=== PATIENT | male | born 1990 | race Caucasian/White ===

== ENCOUNTER 2020-04-14 13:15 | Outpatient (RCR) | payer MEDICARE, MEDICAID, SELFPAY | END 2020-05-12 14:06 | disposition home or self-care (01) | LOC: HO.WCC 13:15 | PROVIDERS: PCP Internal Medicine; Visit Provider Surgery | DX: L98.421 Non-pressure chronic ulcer of back limited to breakdown of skin (principal); F42.4 Excoriation (skin-picking) disorder; F41.1 Generalized anxiety disorder | CPT/HCPCS: 99213 ==

== ENCOUNTER 2020-04-19 03:28 | Emergency (ER) | payer MEDICARE, MEDICAID, SELFPAY ==
[2020-04-19 03:35] VITALS: BP 141/67; BP 152/55; PULSE 76; RESP 20; TEMP 37.2; O2SAT 100; O2SAT 98; BMI 23.6
[2020-04-19] MEDS: LORazepam 1 MG TABLET PO (03:59)
--- NOTE | 2020-04-19 04:15 | ED_ITS ---
HPI - Anxiety General Chief Complaint: Anxiety Stated Complaint: ANXIETY Time Seen by Provider: 04/19/20 03:43 Source: patient and EMS Mode of arrival: EMS History of Present Illness HPI narrative: [facility] been here multiple times for the same. Patient stating that he thinks something is wrong he feels ill his stomach hurts his back hurts is feeling very anxious. Sent in for evaluation. No recent fevers no chills no nausea no vomiting no diarrhea. patient also states can not stop shaking MD complaint: anxiety Severity: mild Quality: constant Related Data Allergies Allergy/AdvReac Type Severity Reaction Status Date / Time trazodone [Trazodone] Allergy Severe SWOLLEN Verified 04/19/20 03:41 TONGUE amoxicillin [Amoxicillin] Allergy Unknown UNKNOWN Verified 04/19/20 03:41 haloperidol [From HALDOL] Allergy Unknown UNKNOWN Verified 04/19/20 03:41 Amoxicillin Allergy Unknown Unknown Uncoded 04/19/20 03:41 Review of Systems Review of Systems: Constitutional : No Fever, No Chills ENT/Mouth : No Ear Pain, No Nasal Congestion, No sore throat Eyes: No Eye Pain, No Swelling, No Redness Cardiovascular : No Chest Pain, No SOB Respiratory : No Cough, No Sputum, No Dyspnea Gastrointestinal : No Nausea, No Vomiting, No Diarrhea, No Hematochezia, No Melena Genitourinary : No Dysuria, No Urinary Frequency, No Hematuria Musculoskeletal : No Myalgias Skin : No Skin Lesions, No rash Neuro : No Weakness, No Numbness, No Paresthesias, No Dizziness, No Headache Psych : positive Anxiety, negative SI HI negative depression Heme/Lymph: No Lymphadenopathy Endocrine : No Polyuria, No Polydipsia PMFSH Past Medical History Medical History (Updated 04/19/20 @ 04:28 by Benjamin Hernández DO) Anxiety Family History Family History (Updated 04/19/20 @ 04:28 by Benjamin Hernández DO) Other Family history non-contributory Social History Social History Advance Directives: No Advance Directives Information Provided: No Physical Exam Vital Signs: Vital Signs: Vital Signs Temp Pulse Resp BP Pulse Ox 04/19/20 03:35 98.9 F 76 20 141/67 H 98 Body Mass Index 23.6 vital signs reviewed Appearance: Alert. Oriented X3. No acute distress. positive for anxious Eyes: Pupils equal, round and reactive to light. ENT: Pharynx normal. Neck: Normal inspection. Neck supple. No lymph nodes noted. No crepitus CVS: Normal heart rate and rhythm. Pulses normal. Normal S1 and S2 Respiratory: No respiratory distress. Breath sounds normal. No Wheezing. No rales Abdomen: Soft and nontender. No rigidity. No distention. good BS x4 Skin: Skin warm and dry. Normal skin color. Normal skin turgor. Extremities: No lower extremity edema. Neurovascular intact to all extremities. No Lacerations. No Rash Neuro: Oriented X 3. No motor deficit. No sensory deficit. Moving all extermities. No slurred speech.
== END 2020-04-19 05:54 | disposition home or self-care (01) ==
PROVIDERS: Emergency Provider Emergency Medicine
DX: F41.9 Anxiety disorder, unspecified (principal)
CPT/HCPCS: 99283

== ENCOUNTER 2020-07-12 09:40 | Outpatient (RCR) | payer MEDICARE, MEDICAID, SELFPAY | END 2020-08-05 15:13 | disposition home or self-care (01) | LOC: HO.WCC 09:40 | PROVIDERS: Visit Provider Physician Assistant | DX: L98.499 Non-pressure chronic ulcer of skin of other sites with unspecified severity (principal); S01.302D Unspecified open wound of left ear, subsequent encounter; F41.9 Anxiety disorder, unspecified; L08.9 Local infection of the skin and subcutaneous tissue, unspecified; F17.210 Nicotine dependence, cigarettes, uncomplicated | CPT/HCPCS: 99212 ==

== ENCOUNTER 2020-08-05 11:23 | Emergency (ER) | payer MEDICARE, MEDICAID, SELFPAY ==
--- NOTE | 2020-08-05 11:29 | ED_ITS ---
HPI - Anxiety General Chief Complaint: Nausea/Vomiting/Diarrhea Stated Complaint: ANXIETY Time Seen by Provider: 08/05/20 11:29 Source: patient, EMS and old records reviewed Mode of arrival: EMS Limitations: no limitations History of Present Illness HPI narrative: 30 yo male with chronic presentation for anxiety, self induced vomiting MD complaint: anxiety Onset (ago): day(s) (today) Symptoms: sense of impending doom Severity: similar to previous episodes Quality: constant Place: home History of similar episodes: Yes Provoking factors: emotional stress Relieving factors: nothing Associated symptoms: nausea/vomiting Related Data Allergies Allergy/AdvReac Type Severity Reaction Status Date / Time trazodone [Trazodone] Allergy Severe SWOLLEN Verified 08/05/20 11:35 TONGUE amoxicillin [Amoxicillin] Allergy Unknown UNKNOWN Verified 08/05/20 11:35 haloperidol [From HALDOL] Allergy Unknown UNKNOWN Verified 08/05/20 11:35 Amoxicillin Allergy Unknown Unknown Uncoded 04/19/20 03:41 Review of Systems Review of Systems: Constitutional : No Fever, No Chills ENT/Mouth : No Ear Pain, No Nasal Congestion, No sore throat Eyes: No Eye Pain, No Swelling, No Redness Cardiovascular : No Chest Pain, No SOB Respiratory : No Cough, No Sputum, No Dyspnea Gastrointestinal : pos Nausea, pos Vomiting, No Diarrhea, No Hematochezia, No Melena Genitourinary : No Dysuria, No Urinary Frequency, No Hematuria Musculoskeletal : No Myalgias Skin : No Skin Lesions, No rash Neuro : No Weakness, No Numbness, No Paresthesias, No Dizziness, No Headache Psych : positive Anxiety, positive Depression, no SI/HI Heme/Lymph: No Lymphadenopathy Endocrine : No Polyuria, No Polydipsia All other systems reviewed and are negative [facility] Past Medical History Attestation statement: The following information was validated with the patient. Medical History Anxiety Family History Family History (Updated 04/19/20 @ 04:28 by Benjamin Hernández DO) Other Family history non-contributory Social History Social History (Updated 08/05/20 @ 12:30 by Brunilda Rogers DO) Substance Use Type: Marijuana Advance Directives: No Advance Directives Information Provided: No Physical Exam Vital Signs: Vital Signs: Last Vital Signs Temp 98.2 F 08/05/20 11:30 Pulse 91 08/05/20 11:30 Resp 20 08/05/20 11:30 BP 150/97 H 08/05/20 11:30 Pulse Ox 100 08/05/20 11:30 Body Mass Index 26.8 Appearance: Alert. Oriented X3. No acute distress. Anxious Eyes: Pupils equal, round and reactive to light. ENT: Pharynx normal. sticking his fingers down his throat Neck: Normal inspection. Neck supple. CVS: Normal heart rate and rhythm. Pulses normal. Respiratory: No respiratory distress. Breath sounds normal. Abdomen: Soft and nontender. Skin: Skin warm and dry. Normal skin color. Normal skin turgor. Extremities: No lower extremity edema. No calf ttp Neuro: Oriented X 3. No motor deficit. No sensory deficit. Course Course Course Narrative: patient eloped from the ED MDM - Anxiety MDM Narrative Medical decision making narrative: chronic presentation of anxiety and self induced vomiting - no change from baseline, will need IM ativan and reglan Discharge Plan Discharge Clinical Impression: Anxiety Patient Disposition: Elopement
[2020-08-05 11:30] VITALS: BP 150/97; PULSE 91; RESP 20; TEMP 36.8; O2SAT 100; BMI 26.8
[2020-08-05] MEDS: LORazepam 2 MG/ML VIAL IM (11:47)
[2020-08-05] MEDS: Metoclopramide HCl 10 MG/2 ML VIAL IM (11:49)
--- NOTE | 2020-08-05 11:53 | PC.NURSE ---
Patient observed sticking fingers down throat. Patient asked not to do it, patient continues to stick fingers down throat. Respirations evn and labored. Ambulated with steady gait. No apparent distress. Skin very moist, mucous membranes moist.
--- NOTE | 2020-08-05 12:06 | PC.NURSE ---
Pt continously sticking fingers down his throat- covered in own emesis. Provided with clean linen- once again advised to stop sticking fingers down throat.Pt asking for water- none given at this time r/t active vomiting.
--- NOTE | 2020-08-05 12:29 | PC.NURSE ---
Patient eloped care area. Refusing further care. Steady gait. No active vomiting provider aware.
--- NOTE | 2020-08-05 12:31 | PC.NURSE ---
Pt requesting this RN call senior living- placed call and pending transportation home. Pt remains in waiting room.
== END 2020-08-05 13:06 | disposition left against medical advice (07) ==
PROVIDERS: Emergency Provider Emergency Medicine
DX: F41.9 Anxiety disorder, unspecified (principal); F50.2 Bulimia nervosa
CPT/HCPCS: 96372; 99283; 99284; J2060; J2765

== ENCOUNTER 2020-08-05 15:37 | Emergency (ER) | payer MEDICARE, MEDICAID, SELFPAY ==
[2020-08-05 15:42] VITALS: BP 172/88; PULSE 98; RESP 22; TEMP 37.1; O2SAT 100; BMI 29.5
--- NOTE | 2020-08-05 15:50 | PC.NURSE ---
While seated in waiting room, pt is sticking fingers in mouth, eliciting gag reflex and vomiting into emesis bag.
[2020-08-05 18:33] VITALS: BP 158/86; PULSE 84; RESP 18; TEMP 37.1; O2SAT 98
--- NOTE | 2020-08-05 19:28 | ED_ITS ---
HPI - Anxiety General Chief Complaint: Anxiety Stated Complaint: anxiety Time Seen by Provider: 08/05/20 18:46 Source: patient Mode of arrival: ambulatory Limitations: no limitations History of Present Illness HPI narrative: Presents to triage with complaint of feeling anxious and nausea and vomiting was noted in triage to make himself gag by sticking his fingers in his throat and vomit this is a going on for 1 day he was here in the emergency room earlier. Upon my evaluation as patient was brought into the emergency room to his bed after being waiting room for 2 hours he now tells me that he feels better and would like to leave. He denies any medical complaints to me. MD complaint: anxiety Severity: mild Place: other ([facility]) History of similar episodes: Yes Exacerbating factors: nothing Associated symptoms: denies other symptoms Related Data Allergies Allergy/AdvReac Type Severity Reaction Status Date / Time trazodone [Trazodone] Allergy Severe SWOLLEN Verified 08/05/20 11:35 TONGUE amoxicillin [Amoxicillin] Allergy Unknown UNKNOWN Verified 08/05/20 11:35 haloperidol [From HALDOL] Allergy Unknown UNKNOWN Verified 08/05/20 11:35 Amoxicillin Allergy Unknown Unknown Uncoded 04/19/20 03:41 Review of Systems Review of Systems: Constitutional: No Weight loss, No Fever, No Chills, No Night Sweats, No Fatigue, No Malaise ENT/Mouth: No Hearing loss, No Ear Pain, No Nasal Congestion, No Sinus Pain, No Hoarseness, No sore throat, No Rhinorrhea, No Swallowing Difficulty Eyes: No Eye Pain, No Swelling, No Redness, No Foreign Body, No Discharge, No Vision Changes Cardiovascular: No Chest Pain, No SOB, No Dyspnea on Exertion, No Orthopnea, No Edema, No Palpitations Respiratory: No Cough, No Sputum, No Wheezing, No Dyspnea Gastrointestinal: No Nausea, No Vomiting, No Diarrhea, No Constipation, No abdominal Pain, No Hematochezia, No Melena Genitourinary: no irregular bleeding, No Dysuria, No Urinary Frequency, No Hematuria, No Urinary Incontinence, No Urgency, No Flank Pain, No Urinary Flow Changes, No Hesitancy Musculoskeletal: No joint pain, No Myalgias, No Joint Swelling Skin: No Skin Lesions, No rash Neuro: No Weakness, No Numbness, No Paresthesias, No Loss of Consciousness, No Dizziness, No Headache Psych: + Anxiety, No Depression, No SI/HI/AH/VH, No Social Issues Heme/Lymph: No Bruising, No Bleeding,No Lymphadenopathy Endocrine: No Polyuria, No Polydipsia, No Temperature Intolerance Yes all other systems are reviewed and are negative [facility] Past Medical History Medical History Anxiety Family History Family History (Updated 04/19/20 @ 04:28 by Benjamin Hernández DO) Other Family history non-contributory Social History Social History (Updated 08/05/20 @ 12:30 by Brunilda Rogers DO) Substance Use Type: Marijuana Advance Directives: No Advance Directives Information Provided: Yes Physical Exam Vital Signs: Vital Signs: Last Vital Signs Temp 98.7 F 08/05/20 18:33 Pulse 84 08/05/20 18:33 Resp 18 08/05/20 18:33 BP 158/86 H 08/05/20 18:33 Pulse Ox 98 08/05/20 18:33 Body Mass Index 29.5 Reviewed Const: General: cooperative and healthy appearing; No acute distress or intoxicated appearing Nutritional Appearance: average body habitus Orientation/consciousness: patient oriented x3 HENMT: Head: Yes normal to inspection Ears: hearing grossly normal bilaterally Eyes: General: appearance normal, both eyes and all related structures Visual Pillai: normal visual pillai by confrontation Neck: Neck: Yes normal visual inspection, No positive Brudzinski's sign, No positive Kernig's sign and No tender Thyroid: Thyroid normal Chest: Chest palpation & inspection: normal inspection of the chest Resp: Effort & Inspection: normal respiratory effort Auscultation: clear to auscultation bilaterally Cardio: Jugular venous distension: no JVD Rhythm: regular rhythm Heart sounds: S1 normal heart sound present and S2 normal heart sound present GI: Inspection: Yes normal to inspection Percussion: Yes normal to percussion Auscultation: normal bowel sounds : General: Yes no CVA tenderness Back/Spine/Pelvis: Back: no CVA tenderness Skin: General skin exam: no rashes or lesions noted Neuro: General: patient oriented x3 Extrem: General: Yes normal to inspection Course Course Course Narrative: Sitting up erected in bed drinking water. Reports he feels better and would like to go home. Offers no other complaints. Discharge Plan Discharge Clinical Impression: Anxiety Patient Disposition: Home, Self-Care Instructions: Anxiety (ED) Additional Instructions: Follow with primary care doctor tomorrow Return if any concerns or worsening symptoms Return to her halfway Thank you Referrals: ED Physician,Generic [Emergency Provider] - 2 days
[2020-08-05 19:44] VITALS: BP 128/72; PULSE 72; RESP 16; TEMP 36.6; O2SAT 97
== END 2020-08-05 19:54 | disposition home or self-care (01) ==
PROVIDERS: Emergency Provider Emergency Medicine
DX: F41.9 Anxiety disorder, unspecified (principal)
CPT/HCPCS: 99282; 99284

== ENCOUNTER 2020-08-16 19:38 | Emergency (ER) | payer MEDICARE, MEDICAID, SELFPAY ==
[2020-08-16 19:47] VITALS: BP 158/64; BP 160/80; PULSE 114; PULSE 99; RESP 19; TEMP 36.7; O2SAT 95; BMI 27.3
--- NOTE | 2020-08-16 19:55 | ED_ITS ---
HPI - Wound/Laceration General Chief Complaint: Medical Clearance Stated Complaint: wound check Source: patient Mode of arrival: ambulatory Limitations: no limitations History of Present Illness HPI narrative: 30-year-old male with past medical history of anxiety, chronic wound picking secondary to compulsion, and substance abuse presents from a halfway for evaluation for abnormal behavior and chronic wounds. Patient appears anxious, needs multiple redirection to answer questions on hand. He does not report any fevers, chills, chest pain or pressure, palpitations, abdominal pain, abdominal distention, nausea or vomiting. Onset (ago): year(s) Location: scalp, face, neck and genitals Patient tetanus UTD: Yes Context: other (Chronic skin picking) Treatments prior to arrival: bandage Related Data Previous Rx's Medication Instructions Recorded doxycycline monohydrate 100 mg PO BID 7 Days #14 cap 08/16/20 Allergies Allergy/AdvReac Type Severity Reaction Status Date / Time trazodone [Trazodone] Allergy Severe SWOLLEN Verified 08/16/20 19:47 TONGUE amoxicillin [Amoxicillin] Allergy Unknown UNKNOWN Verified 08/16/20 19:47 haloperidol [From HALDOL] Allergy Unknown UNKNOWN Verified 08/16/20 19:47 Amoxicillin Allergy Unknown Unknown Uncoded 08/16/20 19:47 Review of Systems Review of Systems: Constitutional: No Fever, No Chills ENT/Mouth: No Ear Pain, No Hoarseness, No sore throat Eyes: No Eye Pain, No Swelling, No Redness, No Foreign Body Cardiovascular: No Chest Pain, No SOB Respiratory: No Cough, No Dyspnea Gastrointestinal: No Nausea, No Vomiting, No Diarrhea, No abdominal Pain Genitourinary: No Dysuria, No Hematuria Musculoskeletal: No joint pain, No Myalgias, No Joint Swelling Skin: Multiple skin picking wounds to the face, scalp, neck, legs and penis. No Skin lacerations, No rash Neuro: No Weakness, No Numbness, No Paresthesias, No Loss of Consciousness, No Dizziness, No Headache Psych: No Anxiety/Panic, No Depression Heme/Lymph: no easy bruising, no Lymphadenopathy Endocrine: No Polyuria, No Polydipsia Yes all other systems are reviewed and are negative PMFSH Past Medical History Attestation statement: The following information was validated with the patient. Source: old records reviewed Medical History Anxiety Family History Family History Other Family history non-contributory Social History Social History Substance Use Type: Marijuana Advance Directives: No Advance Directives Information Provided: Yes Physical Exam Vital Signs: Vital Signs: Last Vital Signs Temp 98.1 F 08/16/20 19:47 Pulse 99 08/16/20 19:47 Resp 19 08/16/20 19:47 BP 158/64 H 08/16/20 19:47 Pulse Ox 95 08/16/20 19:47 Body Mass Index 27.3 Appearance: Alert. Oriented X3. Mild distress. Eyes: Pupils equal, round and reactive to light. ENT: Pharynx normal. Neck: Normal inspection. Neck supple. CVS: Normal heart rate and rhythm. Pulses normal. Respiratory: No respiratory distress. Breath sounds normal. Abdomen: Soft and nontender. Skin: Multiple skin wounds largest diameter is 3 cm to scalp, face, neck, legs and penis. consistent with prior history of skin picking. Skin warm and dry. Normal skin color. Normal skin turgor. Extremities: No lower extremity edema. Psych: Positive substance abuse, negative suicidal ideation, homicidal ideation, auditory visual hallucination Neuro: No motor deficit. No sensory deficit. Course Course Course Narrative: 30-year-old male presents from a halfway for evaluation for suspected substance abuse. He has been picking at his skin and has multiple wounds that are self-inflicted to his head, scalp, face, neck, extremities and penis. He has been seen by wound care for these wounds. Wounds although concerning, do not look infected, no purulent drainage, patient is afebrile. GUO is positive for opioids and cannabinoids. Patient will be discharged back to halfway facility. We will prescribe doxycycline. Discussion with halfway staff by RN for discharge instructions. MDM - Wound/Laceration Differential Diagnosis Differential diagnosis: Likely laceration, abscess, abrasion and avulsion of skin Medical Records Attestation: I reviewed the patient's medical records. Lab Data Attestation: I reviewed the patient's lab results. Labs: Lab Results 08/16/20 08/16/20 Range/Units 20:10 20:10 Urine Color YELLOW Urine Appearance CLEAR Urine pH 6.0 (5.0-8.0) Ur Specific [place] >= 1.030 H (1.005-1.025) Urine Protein NEG (NEG-TRACE) MG/DL Urine Glucose (UA) NEG (NEG) MG/DL Urine Ketones NEG (NEG) MG/DL Urine Blood NEG (NEG) Urine Nitrite NEG (NEG) Ur Leukocyte Esterase NEG (NEG) Urine Opiates Screen POSITIVE H (Not Detect) Ur Barbiturates Screen Not Detected (Not Detect) Ur Phencyclidine Scrn Not Detected (Not Detect) Ur Amphetamines Screen Not Detected (Not Detect) U Benzodiazepines Scrn Not Detected (Not Detect) Urine Cocaine Screen Not Detected (Not Detect) U Marijuana (THC) Screen POSITIVE H (Not Detect) Discharge Plan Discharge Clinical Impression: Compulsive skin picking Patient Disposition: Home, Self-Care Instructions: Acute Wounds (ED) Additional Instructions: Your evaluated for chronic wounds. Please follow-up with wound care. You may consider following up with outpatient psychiatry for medication management for compulsive behaviors. Thank you for choosing this emergency department for evaluation. Please follow-up with primary care physician as needed. Return to the emergency department for any new, concerning, or worsening symptoms. Prescriptions: New doxycycline monohydrate 100 mg capsule 100 mg PO BID 7 Days Qty: 14 RF: 0 Interventions: ED Discharge Assessment Last Done: 08/16/20 21:18 Discharge Date/Time: 08/16/20 21:42
--- NOTE | 2020-08-16 20:03 | PC.NURSE ---
PA IN ROOM FOR EVAL. AWAITING FOR FURTHER ORDERS.
--- NOTE | 2020-08-16 20:13 | PC.NURSE ---
URINE SENT TO LAB.
[2020-08-16 20:17] LABS: Glucose Urine UA NEG (NEG); Leukocyte Esterase Urine NEG (NEG); Nitrite Urine NEG (NEG); Specific Gravity - Urine >= 1.030 (1.005-1.025); Urine Blood NEG (NEG); Urine Ketones NEG (NEG); Urine Protein NEG (NEG-TRACE)
[2020-08-16 20:18] LABS: Appearance Urine CLEAR; Color Urine YELLOW
[2020-08-16 20:42] LABS: Amphetamine Screen Urine Not Detected (Not Detect); Barbiturates, Urine Not Detected (Not Detect); Benzodiazepines Screen Urine Not Detected (Not Detect); Cannabinoid Screen Urine POSITIVE (Not Detect); Cocaine Screen Urine Not Detected (Not Detect); Opiate Screen Urine POSITIVE (Not Detect); Phencyclidine Screen Urine Not Detected (Not Detect)
== END 2020-08-16 21:42 | disposition home or self-care (01) ==
PROVIDERS: Nurse Practitioner Family; Emergency Provider Internal Medicine
DX: F42.4 Excoriation (skin-picking) disorder (principal); S01.00XA Unspecified open wound of scalp, initial encounter; S01.80XA Unspecified open wound of other part of head, initial encounter; S11.90XA Unspecified open wound of unspecified part of neck, initial encounter; S81.809A Unspecified open wound, unspecified lower leg, initial encounter; S31.20XA Unspecified open wound of penis, initial encounter; X58.XXXA Exposure to other specified factors, initial encounter; F11.10 Opioid abuse, uncomplicated; F12.10 Cannabis abuse, uncomplicated; F41.9 Anxiety disorder, unspecified; Y93.89 Activity, other specified; Y92.042 Bedroom in boarding-house as the place of occurrence of the external cause; Y99.9 Unspecified external cause status
CPT/HCPCS: 80307; 81003; 99283

== ENCOUNTER 2020-08-27 08:52 | Outpatient (REF) | payer MEDICARE, MEDICAID, SELFPAY ==
--- NOTE | 2020-08-31 12:30 | MHC.AU.P13 ---
Adult Audiological Evaluation Date of Visit: 08/27/20 Webbing Inspector Used: Not Applicable Reason for Appointment: Audiologic re-evaluation to obtain new hearing aids after Kyler lost his most current hearing aids. Kyler was accompanied by his Director Of Food And Nutrition Main who reports Kyler is having difficulty consistently wearing the large power aids with conspicuous ear molds, takes them off, and then loses the aids. Previous Hearing Test Results: 12/06/2018 [facility] Progressive moderate low frequency, dropping to profound high frequency sensorineural hearing loss bilaterally. Ear History: Progressive hearing loss since cigar head pegger. Medical History: Medical History: Mental health disorder Medication List: Ambien, Ativan, Vistaril, Depakote, Zyprexa, Prozac, Psyllium, Mylanta, Omeprazole, Colace. Hearing Instrument History- Right Ear: Chuck Wagon Cook: Phonak Model: Sandra V 50-SP Serial Number: [id number] Battery Size: 13 Repair Warranty: 02/18/2022 Loss and Damage Warranty: 02/18/2022 Aid reported lost 08/27/2020 Dispensed By: [facility] Date of Fittin12/06/2018 Hearing Instrument History- Left Ear: Chuck Wagon Cook: Phonak Model: Sandra Q 50-SP Serial Number: [id number] Reported lost 08/27/2020 Battery Size: 13 Warranty: Loss and Damage Warranty: Dispensed By: [facility] Date of Fittin08/24/2017 Otoscopy: Right Ear: Partially occluding cerumen removed today prior to test Left Ear: Partially occluding cerumen removed today prior to test Tympanometry: Right Ear: Not performed at today's visit Left Ear: Not performed at today's visit Hearing Evaluation: Transducer(s) Used: Insert Earphones Method: Conventional Audiometry Stimuli Used: Pure Tones Right Ear: Description of Hearing: Moderate dropping to profound sensorineural hearing loss Left Ear: Description of Hearing: Moderate dropping to profound sensorineural hearing loss Speech Recognition Threshold (SRT): Method Used: Monitored Live Voice Stimuli Used: Spondee Words Right Ear: 70 dB HL Left Ear: 70 dB HL Word Discrimination: Method: Recorded Lists Word Lists Used: NU-6 Right Ear: 60% at 100 dB HL Left Ear: 56% at 100 dB HL Comparison: Compared to the most recent evaluation: Thresholds have decreased bilaterally. Word discrimination scores have decreased bilaterally. Interpretation of Results: Marks progressive moderate to profound bilateral sensorineural hearing loss with poor speech understanding causes significant communication difficulties. Since Kyler has such difficulty understanding speech and is not aware of environmental sounds around him, this may also increase his anxiety and mental health status. Recommendations: Audiological re-evaluation in one year. Will send a reminder card. Trial with new amplification is recommended. Medical clearance from a physician is required before fitting. Prior authorization is being sent to insurance. Hearing Aid Fitting will be scheduled when all materials arrive. Although one hearing aid is under a loss and damage warranty, a replacement for the old hearing aid lost would have to be a different model. There are barriers to using his current model with a new hearing aid model as the two devices would not work together to provide the significant benefit of binaural synchronization and noise reduction/speech enhancement features. Also, given Kyler's significant mental health disorders, he is having difficulty wearing the very large and conspicuous current hearing aids and refusing to use them which in turn makes work and social interactions nearly impossible. It is strongly recommended Kyler receive 2 new smaller hearing aids which communicate together and smaller ear molds to provide the best benefit. Kyler was shown the appropriate model and says he would consistently wear this new style of hearing aids. Diagnosis: Primary Diagnosis: H90.3 Bilateral Sensorineural Hearing Loss Services Performed: Comprehensive Audiological Evaluation (CPT 68224) Signature: Provider: Khanh Dumont, [facility]
--- NOTE | 2020-08-31 13:16 | MHC.AU.P13 ---
Hearing Aid Evaluation- Binaural Date of Visit: 08/27/20 Mail Reader Used: Not Applicable Description of Hearing: Progressive moderate dropping to profound sensorineural hearing loss bilaterally Current Hearing Instrument Information: 2019 Phonak Sandra V 50-SP and 2018 Sandra Q 50-SP hearing aids lost Additional Information: Although one hearing aid is under a loss and damage warranty, a replacement for the old hearing aid lost would have to be a different model. There are barriers to using his current model with a new hearing aid model as the two devices would not work together to provide the significant benefit of binaural synchronization and noise reduction/speech enhancement features. Also, given Kyler's significant mental health disorders, he is having difficulty wearing the very large and conspicuous current hearing aids and refusing to use them which in turn makes work and social interactions very difficult. It is strongly recommended Kyler receive 2 new smaller hearing aids which communicate together and smaller ear molds to provide the best benefit. Kyler was shown the appropriate model and says he would consistently wear this new style of hearing aids. Hearing Instrument Selection: Right Ear: Process Engineering Technician: Phonak Model: Audeo P 70-13T Battery Size: 13 Color: Sand Beige Art Handler: #2 UP Type of Mold: Phonak Clear Canal C-Shell Left Ear: Process Engineering Technician: Phonak Model: Audeo P 70-13T Battery Size: 13 Color: Sand Beige Art Handler: #2 UP Type of Mold: Phonak Clear Canal C-Shell Plan: Plan of Care for Hearing Instrument Fitting: Action Taken/Action Needed: Earmold Impressions Taken Prior authorization to be requested Medical Clearance to be requested from PCP/ENT When insurance authorizaiton is received will order aids and call to schedule Hearing Aid Fitting Diagnosis Code(s): Primary Diagnosis: H90.3 Bilateral Sensorineural Hearing Loss Services Performed: Hearing Aid Evaluation Type: HAE B: Binaural 3rd Libertarian Ear Impression (Quantity): 2 Signature: Provider: Khanh Dumont CCC-A
--- NOTE | 2020-08-31 13:20 | MHC.AU.MED ---
Medical Clearance for Hearing Instrumentation Date: 08/31/20 Patient Name: Kyler Jules Date of : 1990 Primary Care Provider: Referring Provider: Elia Argueta MD We have seen your patient on 08/31/20 and have determined that they are a candidate for amplification (See accompanying report). Specifically, they would benefit from: Hearing aid use in both ears There is a statute that addresses Medical Evaluation Requirements prior to fitting a patient with a hearing aid. According to [place] statute 265 CMR:6.03(1), (a) General. Except as provided in 265 CMR 6.03(1)(b), a wool shearing supervisor shall not sell a hearing aid unless the prospective user has presented to the wool shearing supervisor a written statement signed by a licensed physician that states that the patient's hearing loss has been medically evaluated and the patient may be considered a candidate for a hearing aid. The medical evaluation must have taken place within the preceding six months. Please note: Due to the [place] Statute referenced above, we cannot accept a signature other than that of a licensed physician. FRAME RUNNER and PA signatures cannot be accepted. I am in agreement with the above recommendation. There is no medical contraindication for hearing instrumentation. Physician Signature Date Physician Name (Printed)
== END 2020-08-27 08:53 | disposition home or self-care (01) ==
LOC: HO.SH 08:52
PROVIDERS: Visit Provider Internal Medicine
DX: Z46.1 Encounter for fitting and adjustment of hearing aid (principal); H90.3 Sensorineural hearing loss, bilateral
CPT/HCPCS: 92557; 92591; V5275

== ENCOUNTER 2020-09-01 12:45 | Emergency (ER) | payer MEDICARE, MEDICAID, SELFPAY ==
--- NOTE | ~2020-09-01 | XR_ITS ---
EXAMINATION: XR CHEST CLINICAL INFORMATION: Shortness of breath and vomiting COMPARISON: Chest radiograph 01/16/2020 TECHNIQUE: 2 views of the chest were obtained. FINDINGS: No significant abnormality is noted involving the heart, lungs, mediastinum, bony thorax or soft tissues. XR/XR chest 2V IMPRESSION: Unremarkable examination.
[2020-09-01 12:51] VITALS: BP 145/76; PULSE 83; RESP 20; TEMP 36.1; O2SAT 98; BMI 26.6
--- NOTE | 2020-09-01 17:08 | PC.NURSE ---
Patient keeps putting fingers down his throat to induce vomiting
--- NOTE | 2020-09-01 18:17 | PC.NURSE ---
pt's [facility] attendant logan vaughan ([phone]) states that pt needs a psych consult. logan vaughan states that pt is going through withdrawal and has an appt at 12 midnight for admission at [place] for detox. pt has stage 2 wounds to the neck which are due to heroin usage and picking, pt earlier c/o trouble breathing and blood in his stomach. pt earlier had some increase agitation and delusional outbursts. pt is not si/hi. mlp (rozina) aware.
--- NOTE | 2020-09-01 18:34 | ECG_ITS ---
Test Reason : VOMITING Blood Pressure : / mmHG Vent. Rate : 080 BPM Atrial Rate : 080 BPM P-R Int : 140 ms QRS Dur : 086 ms QT Int : 392 ms P-R-T Axes : 046 -26 064 degrees QTc Int : 452 ms Normal sinus rhythm Normal ECG When compared with ECG of 22-DEC-2018 13:55, T wave inversion no longer evident in Inferior leads Referred By: Juliette Hankins Electronically Signed By:CLARENCE MCKEON MD
--- NOTE | 2020-09-01 18:50 | ED.GENADULT ---
HPI - General Adult General Chief complaint: General Medical Stated complaint: DETOX Time Seen by Provider: 09/01/20 18:22 Source: patient Mode of arrival: ambulatory Limitations: no limitations History of Present Illness HPI narrative: 30-year-old male from a [place] [facility] with a past medical history of anxiety and substance abuse here with complaints of generalized abdominal discomfort described as cramping with nausea and vomiting and shortness of breath since today. Per [facility] staff the patient has a detox bed at [place] pending a crisis evaluation. He has a history of heroin use. He is unreliable historian so his last use is unknown and patient provides very limited information. Per staff he does get 20 dollars a day and he uses this money to purchase to heroin. He also uses marijuana and occasionally drinks alcohol. The patient denies SI or HI. They tell me that the patient needs a crisis consult as he is been very agitated lately and having delusions. Related Data Previous Rx's Medication Instructions Recorded doxycycline monohydrate 100 mg PO BID 7 Days #14 cap 08/16/20 ondansetron 4 mg PO Q6H PRN #10 tab 09/01/20 Allergies Allergy/AdvReac Type Severity Reaction Status Date / Time trazodone [Trazodone] Allergy Severe SWOLLEN Verified 08/16/20 19:47 TONGUE amoxicillin [Amoxicillin] Allergy Unknown UNKNOWN Verified 08/16/20 19:47 haloperidol [From HALDOL] Allergy Unknown UNKNOWN Verified 08/16/20 19:47 Amoxicillin Allergy Unknown Unknown Uncoded 08/16/20 19:47 Review of Systems Review of Systems: Yes all other systems are reviewed and are negative Constitutional: Constitutional: Reports no additional constitutional complaints, Denies body ache(s), Denies chills, Denies fever(s), Denies headache(s) and Denies weakness Eyes: Eyes: Reports no additional eye complaints and Denies change in vision ENT: Reports system reviewed and no additional complaints, except as documented, Denies dizziness, Denies headache(s), Denies nasal congestion, Denies nasal discharge and Denies neck pain Cardiovascular: Cardiovascular: Reports no additional cardiovascular complaints, Denies chest pain, Denies leg edema and Reports dyspnea Respiratory: Respiratory: Reports no additional respiratory complaints, Denies cough and Reports dyspnea Gastrointestinal: Gastrointestinal: Reports no additional gastrointestinal complaints, Denies abdominal pain, Denies diarrhea, Reports nausea and Reports vomiting Genitourinary: Genitourinary: Denies urinary incontinence Musculoskeletal: Musculoskeletal: Reports no additional musculoskeletal complaints, Denies back pain, Denies arthralgias, Denies joint swelling, Denies neck pain, Denies numbness and Denies tingling Integumentary/Breasts: Skin/Breast: Reports system reviewed and no additional complaints, except as docu and Denies rash Neurologic: Reports system reviewed and no additional complaints, except as documented, Denies Abnormal speech present, Denies dizziness, Denies headache(s), Denies numbness, Denies tingling and Denies weakness PMFSH Past Medical History Attestation statement: The following information was validated with the patient. Source: old records reviewed and nursing notes reviewed Medical History Anxiety Family History Family History Other Family history non-contributory Social History Social History Smoked in Last 30 Days: No Use of substances other than those prescribed or required for medical reasons: Yes Substance Use Type: Opiates Substance Use Frequency: Occasionally Last Used Substance: Hours (ago) Any prior treatment program specific to substance use: No Advance Directives: No Advance Directives Information Provided: Yes Physical Exam Vital Signs: Vital Signs: Last Vital Signs Temp 97 F 09/01/20 12:51 Pulse 83 09/01/20 12:51 Resp 22 H 09/01/20 20:05 BP 145/76 H 09/01/20 12:51 Pulse Ox 99 09/01/20 20:05 Body Mass Index 26.6 Const: General: cooperative, healthy appearing, comfortable and no acute distress Orientation/consciousness: patient oriented x3 Limitations: no limitations HENMT: Head: Yes normal to inspection Ears: hearing grossly normal bilaterally General nose exam: Normal external nose present Face and sinus: Yes normal facial exam Mouth: Normal oral and palatal mucosa present Throat: Yes posterior oropharynx normal Eyes: General: appearance normal, both eyes and all related structures Pupils: Equal, round and reactive pupils present Neck: Neck: Yes normal visual inspection Chest: Chest palpation & inspection: normal inspection of the chest Resp: Effort & Inspection: normal respiratory effort Auscultation: clear to auscultation bilaterally Cardio: Rate: regular rate Rhythm: regular rhythm Peripheral pulses: Peripheral pulses 2+ throughout GI: Inspection: Yes normal to inspection Palpation (GI): Soft to palpation and nontender Auscultation: normal bowel sounds Back/Spine/Pelvis: Thoracic/Lumbar Spine: thoracic and lumbar spine normal to inspection Skin: General skin exam: no rashes or lesions noted Neuro: General: patient oriented x3, no focal motor deficits and normal sensation to monofilament Cranial nerves: Yes Equal, round and reactive pupils present Cognition (Neuro): normal cognition Speech: No Abnormal speech present Gait exam (Neuro): Normal gait present Motor exam (neuro): 5/5 motor strength present throughout Extrem: General: Yes normal to inspection Psych: Other: Very anxious Appearance: disheveled Course Course Course Narrative: 30 yo male here with reports of nausea, vomiting, abdominal cramping and SOB which he tells me are withdrawal symptoms. He provides a limited history and tells me he does use heroin but is unable to tell me how much or when. He does have a detox bed at [facility] but needs a crisis evaluation prior this per the workgroup leader. Pt denies SI/HI. Very anxious, requires very frequent re-direction. Will check labs, GUO, EKG and CXR. Will give SL zofran, ativan PRN and order care team evaluation. 2100-Labs unremarkable. Our care team spoke to the [facility] staff who will take [facility] and plan for further placement in detox from there. Patient up to the bathroom where he drinks in large quantities from the sink and then forces himself to spit it up saying he is vomiting. When patient is in his room he is calm, resting with eyes closed with no vomiting or abdominal pain. Imaging unremarkable. Labs unremarkable. Will plan for discharge home. Reviewed worrisome signs/symptoms with [facility] staff. Comfortable with discharge back to them. Medical Decision Making Medical Records Medical records reviewed: Yes I reviewed the patient's medical records. Lab Data Lab results reviewed: Yes I reviewed the patient's lab results. Result diagrams: 09/01/20 19:58 09/01/20 19:58 Labs: Lab Results 09/01/20 09/01/20 09/01/20 Range/Units 19:58 19:58 19:58 WBC 9.0 (4.8-10.8) X10*3/uL RBC 4.58 L (4.60-5.80) X10*6/uL Hgb 14.4 (14.0-18.0) g/dl Hct 42.8 (42-52) % MCV 93.4 (80-98) fL MCH 31.4 (27.0-33.0) pg MCHC 33.6 (31.0-36.0) g/dl RDW 13.3 (11.0-16.0) % Plt Count 337 (160-400) X10*3/uL MPV 8.8 L (9.4-12.4) fL Immature Gran % (Auto) 0.4 (0.0-0.4) % Neut % (Auto) 86.9 H (45-73) % Lymph % (Auto) 8.5 L (20-40) % [place] % (Auto) 4.2 (2-11) % Eos % (Auto) 0.0 (0-4) % Baso % (Auto) 0.0 (0-2) % Lymph # (Auto) 0.8 L (1.2-4.9) X10*3/uL [place] # (Auto) 0.4 (0.1-1.2) X10*3/uL Eos # (Auto) 0.0 (0.0-0.4) X10*3/uL Baso # (Auto) 0.0 (0.0-0.2) X10*3/uL Abs Immat Gran (auto) 0.04 H (0.00-0.03) X10*3/uL Absolute Neuts (auto) 7.8 (2.0-8.3) X10*3/uL Absolute Nucleated RBC 0.000 (0.0-0.012) X10*3/uL Nucleated RBC % (auto) 0.0 (0.0-0.2) /100WBC Sodium 137 (135-145) mmol/L Potassium 5.1 (3.3-5.1) mmol/L Chloride 102 (96-108) mmol/L Carbon Dioxide 21 L (22-29) mmol/L Anion Gap 19 (12-20) BUN 29 H (9-16) mg/dL Creatinine 1.09 (0.5-1.4) mg/dL Estim Creat Clear Calc 93.4 Estimated GFR > 60 Random Glucose 113 (60-115) mg/dL Calcium 10.2 (8.4-10.2) mg/dL Total Bilirubin 0.6 (0.0-1.0) mg/dL Direct Bilirubin 0.3 (0.0-0.5) mg/dL AST 20 (5-37) U/L ALT 16 (0-40) U/L Alkaline Phosphatase 68 (39-117) U/L Total Protein 8.6 H (6.5-8.0) g/dL Albumin 4.9 (3.5-5.0) g/dL Urine Opiates Screen (Not Detect) Ur Barbiturates Screen (Not Detect) Ur Phencyclidine Scrn (Not Detect) Ur Amphetamines Screen (Not Detect) U Benzodiazepines Scrn (Not Detect) Urine Cocaine Screen (Not Detect) U Marijuana (THC) Screen (Not Detect) Ethyl Alcohol < 10 mg/dL 09/01/20 Range/Units 20:09 WBC (4.8-10.8) X10*3/uL RBC (4.60-5.80) X10*6/uL Hgb (14.0-18.0) g/dl Hct (42-52) % MCV (80-98) fL MCH (27.0-33.0) pg MCHC (31.0-36.0) g/dl RDW (11.0-16.0) % Plt Count (160-400) X10*3/uL MPV (9.4-12.4) fL Immature Gran % (Auto) (0.0-0.4) % Neut % (Auto) (45-73) % Lymph % (Auto) (20-40) % [place] % (Auto) (2-11) % Eos % (Auto) (0-4) % Baso % (Auto) (0-2) % Lymph # (Auto) (1.2-4.9) X10*3/uL [place] # (Auto) (0.1-1.2) X10*3/uL Eos # (Auto) (0.0-0.4) X10*3/uL Baso # (Auto) (0.0-0.2) X10*3/uL Abs Immat Gran (auto) (0.00-0.03) X10*3/uL Absolute Neuts (auto) (2.0-8.3) X10*3/uL Absolute Nucleated RBC (0.0-0.012) X10*3/uL Nucleated RBC % (auto) (0.0-0.2) /100WBC Sodium (135-145) mmol/L Potassium (3.3-5.1) mmol/L Chloride (96-108) mmol/L Carbon Dioxide (22-29) mmol/L Anion Gap (12-20) BUN (9-16) mg/dL Creatinine (0.5-1.4) mg/dL Estim Creat Clear Calc Estimated GFR Random Glucose (60-115) mg/dL Calcium (8.4-10.2) mg/dL Total Bilirubin (0.0-1.0) mg/dL Direct Bilirubin (0.0-0.5) mg/dL AST (5-37) U/L ALT (0-40) U/L Alkaline Phosphatase (39-117) U/L Total Protein (6.5-8.0) g/dL Albumin (3.5-5.0) g/dL Urine Opiates Screen Not Detected (Not Detect) Ur Barbiturates Screen Not Detected (Not Detect) Ur Phencyclidine Scrn Not Detected (Not Detect) Ur Amphetamines Screen Not Detected (Not Detect) U Benzodiazepines Scrn Not Detected (Not Detect) Urine Cocaine Screen Not Detected (Not Detect) U Marijuana (THC) Screen POSITIVE H (Not Detect) Ethyl Alcohol mg/dL Imaging Data Chest x-ray: Attestation: I personally reviewed and interpreted this imaging study as follows: Radiologist's impression: EXAMINATION: XR CHEST CLINICAL INFORMATION: Shortness of breath and vomiting COMPARISON: Chest radiograph 01/16/2020 TECHNIQUE: 2 views of the chest were obtained. FINDINGS: No significant abnormality is noted involving the heart, lungs, mediastinum, bony thorax or soft tissues. XR/XR chest 2V IMPRESSION: Unremarkable examination. ECG Data Interpretation: NSR rate 80, normal pr, normal qrs, normal qtc Artifact present with patient not being cooperative Discharge Plan Discharge Clinical Impression: Schizoaffective disorder, Withdrawal from opioids Patient Disposition: Home, Self-Care Instructions: Schizoaffective Disorder (ED), Narcotic Withdrawal (ED) Additional Instructions: Start with clear liquids then advance dist as tolerated Prescriptions: New ondansetron 4 mg tablet,disintegrating 4 mg PO Q6H PRN (Reason: nausea and vomiting) Qty: 10 RF: 0 No Action doxycycline monohydrate 100 mg capsule 100 mg PO BID 7 Days Qty: 14 RF: 0 Referrals: Physician,Unknown [Primary Care Provider] - 2 days Discharge Date/Time: 09/01/20 22:11
[2020-09-01] MEDS: LORazepam 1 MG TABLET 2 MG PO (19:44)
[2020-09-01 20:02] LABS: MANUAL DIFF FLAG NO
[2020-09-01 20:03] LABS: Hematocrit 42.8 % (42-52); Hemoglobin 14.4 g/dl (14.0-18.0); Imm Gran Abs Auto 0.04 X10*3/uL (0.00-0.03); Imm Gran Pct Auto 0.4 % (0.0-0.4); Lymphocytes Absolute Auto 0.8 X10*3/uL (1.2-4.9); Lymphocytes Percent Auto 8.5 % (20-40); Mean Corpuscular HGB Conc 33.6 g/dl (31.0-36.0); Mean Corpuscular Hemoglobin 31.4 pg (27.0-33.0); Mean Corpuscular Volume 93.4 fL (80-98); Mean Platelet Volume 8.8 fL (9.4-12.4); Monocytes Absolute Auto 0.4 X10*3/uL (0.1-1.2); Monocytes Percent Auto 4.2 % (2-11); Neutrophils Absolute Auto 7.8 X10*3/uL (2.0-8.3); Neutrophils Percent Auto 86.9 % (45-73); Platelet Count 337 X10*3/uL (160-400); Red Blood Count 4.58 X10*6/uL (4.60-5.80); Red Cell Distribution Width 13.3 % (11.0-16.0)
[2020-09-01 20:05] VITALS: RESP 22; O2SAT 99
[2020-09-01 20:37] LABS: Ethanol < 10 mg/dL
[2020-09-01 20:40] LABS: Alanine Aminotransferase 16 U/L (0-40); Albumin Level 4.9 g/dL (3.5-5.0); Alkaline Phosphatase 68 U/L (39-117); Anion Gap 19 (12-20); Aspartate Amino Transferase 20 U/L (5-37); Bilirubin Direct 0.3 mg/dL (0.0-0.5); Bilirubin Total 0.6 mg/dL (0.0-1.0); Blood Urea Nitrogen 29 mg/dL (9-16); Calcium 10.2 mg/dL (8.4-10.2); Carbon Dioxide 21 mmol/L (22-29); Chloride 102 mmol/L (96-108); Creatinine Clr Calc Pharmacy 93.4; Estimated Glomerular Filt Rate > 60; Glucose Random 113 mg/dL (60-115); Potassium 5.1 mmol/L (3.3-5.1); Sodium 137 mmol/L (135-145); Total Protein 8.6 g/dL (6.5-8.0)
--- NOTE | 2020-09-01 21:00 | MHC.CARE ---
CARE Team speaks with individual small group instructor, Main, who indicates that pt is in withdrawal from heroin and outpatient providers are planning on referring him to a detox facility. CARE Team meets with pt, who appears anxious and ruminates on physical complaints, and has difficulty engaging with home health care social worker. In speaking with Main and ED staff who know pt well, pt appears to be functioning at baseline psychiatrically. He has a reported hx of schizophrenia and depression. Pt does not meet criteria for sect 12 at this time, as increased distress is likely attributed to withdrawal from heroin. CARE Team coordinates with Main from [facility] for discharge plan. CARE Team recommends to Main that after medical clearance, pt be discharged to the [facility] with plan for N crisis assessment in the community with likely referral to detox as [facility] is recommending. CARE Team voices concerns about if the milieu at a detox facility will be appropriate for pt given baseline functioning. Pt reportedly needs a great deal of redirection. Plan is discussed with ARMANDO Clements and DAVID Blount.
[2020-09-01 21:10] LABS: Amphetamine Screen Urine Not Detected (Not Detect); Barbiturates, Urine Not Detected (Not Detect); Benzodiazepines Screen Urine Not Detected (Not Detect); Cannabinoid Screen Urine POSITIVE (Not Detect); Cocaine Screen Urine Not Detected (Not Detect); Opiate Screen Urine Not Detected (Not Detect); Phencyclidine Screen Urine Not Detected (Not Detect)
== END 2020-09-01 22:11 | disposition home or self-care (01) ==
PROVIDERS: Nurse Practitioner Family; Emergency Provider Emergency Medicine
DX: F11.13 Opioid abuse with withdrawal (principal); F25.9 Schizoaffective disorder, unspecified; F22 Delusional disorders; R06.02 Shortness of breath; R11.2 Nausea with vomiting, unspecified; F41.9 Anxiety disorder, unspecified; F12.90 Cannabis use, unspecified, uncomplicated; Z79.899 Other long term (current) drug therapy
CPT/HCPCS: 36415; 71046; 80048; 80076; 80307; 80320; 85025; 93005; 99283; 99284

== ENCOUNTER 2020-09-04 15:47 | Emergency (ER) | payer MEDICARE, MEDICAID, SELFPAY ==
[2020-09-04 16:04] VITALS: BP 154/81; PULSE 77; RESP 18; TEMP 36.8; O2SAT 100; BMI 23.6
--- NOTE | 2020-09-04 16:10 | ED_ITS ---
HPI - Psych General Chief Complaint: Psychiatric Symptoms Stated Complaint: crisis Time Seen by Provider: 09/04/20 16:02 Source: patient and EMS Mode of arrival: EMS Limitations: no limitations History of Present Illness HPI Narrative: Patient comes to emergency room by EMS from a [facility]. Patient has been voicing suicidal ideation was thoughts, hearing voices. EMS reports that the [facility] staff is concerned that the patient has increased depression. Patient states that he is not suicidal stating that he would never hurt himself, but he is on a ?destructive path?. Patient states that he hears voices telling him to hurt himself. Patient is not homicidal. Patient denies any medical concerns. MD complaint: feels depressed Related Data Home Medications Medication Instructions Recorded Confirmed divalproex [Depakote ER] 2 tab PO BID 09/04/20 09/04/20 docusate sodium 1 cap PO BID 09/04/20 09/04/20 fluoxetine 1 mg PO DAILY 09/04/20 09/04/20 mupirocin TOPICAL 09/04/20 zolpidem 1 tab PO BEDTIME PRN 09/04/20 09/04/20 Previous Rx's Medication Instructions Recorded doxycycline monohydrate 100 mg PO BID 7 Days #14 cap 08/16/20 ondansetron 4 mg PO Q6H PRN #10 tab 09/01/20 Allergies Allergy/AdvReac Type Severity Reaction Status Date / Time trazodone [Trazodone] Allergy Severe SWOLLEN Verified 09/04/20 16:01 TONGUE amoxicillin [Amoxicillin] Allergy Unknown UNKNOWN Verified 09/04/20 16:01 haloperidol [From HALDOL] Allergy Unknown UNKNOWN Verified 09/04/20 16:01 Amoxicillin Allergy Unknown Unknown Uncoded 08/16/20 19:47 Review of Systems Review of Systems: Constitutional : No Weight loss, No Fever, No Chills, No Night Sweats, No Fatigue, No Malaise ENT/Mouth : No Hearing loss, No Ear Pain, No Nasal Congestion, No Sinus Pain, No Hoarseness, No sore throat, No Rhinorrhea, No Swallowing Difficulty Eyes: No Eye Pain, No Swelling, No Redness, No Foreign Body, No Discharge, No Vision Changes Cardiovascular : No Chest Pain, No SOB, No Dyspnea on Exertion, No Orthopnea, No Edema, No Palpitations Respiratory : No Cough, No Sputum, No Wheezing, No Smoke Exposure, No Dyspnea Gastrointestinal : No Nausea, No Vomiting, No Diarrhea, No Constipation, No abdominal Pain, No Hematochezia, No Melena Genitourinary : no irregular bleeding, No Dysuria, No Urinary Frequency, No Hematuria, No Urinary Incontinence, No Urgency, No Flank Pain, No Urinary Flow Changes, No Hesitancy Musculoskeletal : No joint pain, No Myalgias, No Joint Swelling Skin : Complaining of multiple skin scabs and his face and neck Neuro : No Weakness, No Numbness, No Paresthesias, No Loss of Consciousness, No Dizziness, No Headache Psych : Mild anxiety, worsening depression, auditory hallucinations Heme/Lymph: No Bruising, No Bleeding,No Lymphadenopathy Endocrine : No Polyuria, No Polydipsia, No Temperature Intolerance PMFSH Past Medical History Medical History Anxiety Schizoaffective disorder Substance abuse Family History Family History Other Family history non-contributory Social History Social History Smoked in Last 30 Days: No Use of substances other than those prescribed or required for medical reasons: No Substance Use Type: Opiates Advance Directives: No Advance Directives Information Provided: Yes Physical Exam Vital Signs: Vital Signs: Last Vital Signs Temp 97.4 F 09/04/20 18:00 Pulse 86 09/04/20 18:15 Resp 16 09/04/20 18:00 BP 148/81 H 09/04/20 18:00 Pulse Ox 99 09/04/20 18:00 Body Mass Index 23.6 Appearance: Alert. Oriented X3. No acute distress. Eyes: Pupils equal, round and reactive to light. ENT: Pharynx normal. Hard of hearing Neck: Normal inspection. Neck supple. No lymph nodes noted. No crepitus CVS: Normal heart rate and rhythm. Pulses normal. Normal S1 and S2 Respiratory: No respiratory distress. Breath sounds normal. No Wheezing. No rales Abdomen: Soft and nontender. No rigidity. No distention. good BS x4 Skin: Skin warm and dry. Patient has multiple scabs in the forehead, behind his right ear and on the neck, patient constantly picking and scratching these areas Extremities: No lower extremity edema. No lower extremity edema. No Lacerati ons. No Rash Neuro: Oriented X 3. No motor deficit. No sensory deficit. Moving all extermities. No slurred speech. Psych: Patient calm, cooperative, seems anxious, picking on his scabs in his neck Course Course Course Narrative: Patient was seen by [facility]. At this time, patient is feeling better, denying suicidal ideation. [facility] staff talked to the [facility], patient has been compliant with his medication. Seems that his symptoms are related to marijuana use. I spoke with patient again, he is not suicidal or homicidal. Patient agrees with plan to be sent home to the [facility] - Psych Lab Data Labs: Lab Results 09/04/20 09/04/20 Range/Units 16:38 16:38 Urine Color YELLOW Urine Appearance CLEAR Urine pH 7.5 (5.0-8.0) Ur Specific Orient 1.015 (1.005-1.025) Urine Protein NEG (NEG-TRACE) MG/DL Urine Glucose (UA) NEG (NEG) MG/DL Urine Ketones 5 (NEG) MG/DL Urine Blood NEG (NEG) Urine Nitrite NEG (NEG) Ur Leukocyte Esterase NEG (NEG) Urine Opiates Screen Not Detected (Not Detect) Ur Barbiturates Screen Not Detected (Not Detect) Ur Phencyclidine Scrn Not Detected (Not Detect) Ur Amphetamines Screen Not Detected (Not Detect) U Benzodiazepines Scrn Not Detected (Not Detect) Urine Cocaine Screen Not Detected (Not Detect) U Marijuana (THC) Screen POSITIVE H (Not Detect) Discharge Plan Discharge Clinical Impression: Marijuana abuse Depression Qualifiers: Depression Type: other depression Qualified Code(s): F32.89 - Other specified depressive episodes Patient Disposition: Home, Self-Care Instructions: Depression (ED) Additional Instructions: Please follow-up with your primary care physician tomorrow. If you have any worsening or new symptoms, please return to the emergency room or call 911 Prescriptions: No Action doxycycline monohydrate 100 mg capsule 100 mg PO BID 7 Days Qty: 14 RF: 0 ondansetron 4 mg tablet,disintegrating 4 mg PO Q6H PRN (Reason: nausea and vomiting) Qty: 10 RF: 0 divalproex [Depakote ER] 500 mg tablet extended release 24 hr 2 tab PO BID RF: 0 docusate sodium 100 mg capsule 1 cap PO BID RF: 0 mupirocin 2 % ointment topical RF: 0 zolpidem 5 mg tablet 1 tab PO BEDTIME PRN (Reason: Sleep) RF: 0 fluoxetine 20 mg capsule 1 mg PO DAILY RF: 0
[2020-09-04 16:47] LABS: Glucose Urine UA NEG (NEG); Leukocyte Esterase Urine NEG (NEG); Nitrite Urine NEG (NEG); PH 7.5 (5.0-8.0); Specific Gravity - Urine 1.015 (1.005-1.025); Urine Blood NEG (NEG); Urine Ketones 5 MG/DL (NEG); Urine Protein NEG (NEG-TRACE)
--- NOTE | 2020-09-04 16:51 | PC.NURSE ---
arun called to confirm that fax was recieved. this rn spoke with Theresa. Crisis eval expected whenever next clinician is available. no ETA.
[2020-09-04 16:52] LABS: Appearance Urine CLEAR; Color Urine YELLOW
[2020-09-04 17:08] LABS: Amphetamine Screen Urine Not Detected (Not Detect); Barbiturates, Urine Not Detected (Not Detect); Benzodiazepines Screen Urine Not Detected (Not Detect); Cannabinoid Screen Urine POSITIVE (Not Detect); Cocaine Screen Urine Not Detected (Not Detect); Opiate Screen Urine Not Detected (Not Detect); Phencyclidine Screen Urine Not Detected (Not Detect)
[2020-09-04 18:00] VITALS: BP 148/81; PULSE 106; RESP 16; TEMP 36.3; O2SAT 99
[2020-09-04 18:15] VITALS: PULSE 86; O2SAT 94
--- NOTE | 2020-09-04 18:55 | PC.NURSE ---
RONNIE Tovar. Rebekah.
--- NOTE | 2020-09-04 19:38 | PC.NURSE ---
Rebekah from [facility] at bedside discussing plan with pt to DC back to care home.
[2020-09-04 19:59] VITALS: BP 141/63; PULSE 94; RESP 16; TEMP 36.3; O2SAT 99
== END 2020-09-04 20:12 | disposition home or self-care (01) ==
PROVIDERS: Emergency Provider Emergency Medicine
DX: F32.89 Other specified depressive episodes (principal); F12.10 Cannabis abuse, uncomplicated; R45.851 Suicidal ideations; R44.0 Auditory hallucinations; F41.9 Anxiety disorder, unspecified; F11.10 Opioid abuse, uncomplicated; F25.9 Schizoaffective disorder, unspecified; Z79.899 Other long term (current) drug therapy
CPT/HCPCS: 80307; 81003; 94640; 99283; 99284

== ENCOUNTER 2020-09-05 01:44 | Emergency (ER) | payer MEDICARE, MEDICAID, SELFPAY ==
[2020-09-05 03:05] VITALS: BP 147/68; PULSE 93; RESP 18; TEMP 36.6; O2SAT 97; BMI 24.0
--- NOTE | 2020-09-05 03:40 | PC.NURSE ---
pt inducing vomiting by placing fingers in his mouth. pt claiming that he is deaf when asked questions regarding complaints.
--- NOTE | 2020-09-05 04:02 | PC.NURSE ---
Pt demanded and given ice chips. Pt then proceeded to continue to self-induce vomiting, walking around ED. Pt encouraged to return to ED Bed 17. Ambulates with steady gait. Pt does not belch, gag, or vomit when staff is not in direct view of the patient. When staff walks by the room, patient begins vomiting , gagging, belching, and moaning. Pt seen earlier this shift doing similar actions. Provider aware. Will continue to monitor.
--- NOTE | 2020-09-05 04:21 | ED_ITS ---
HPI - Psych General Chief Complaint: Nausea/Vomiting/Diarrhea Stated Complaint: nausea and vomiting Time Seen by Provider: 09/05/20 03:00 Source: patient Mode of arrival: ambulatory History of Present Illness HPI Narrative: This is a 30-year-old male presents with complaints of nausea and vomiting after being discharged earlier in the day. He currently states that he is no longer feeling nauseous and vomiting and denies any feelings suicidal or homicidal ideation. Related Data Home Medications Medication Instructions Recorded Confirmed divalproex [Depakote ER] 2 tab PO BID 09/04/20 09/04/20 docusate sodium 1 cap PO BID 09/04/20 09/04/20 fluoxetine 1 mg PO DAILY 09/04/20 09/04/20 mupirocin TOPICAL 09/04/20 zolpidem 1 tab PO BEDTIME PRN 09/04/20 09/04/20 Previous Rx's Medication Instructions Recorded doxycycline monohydrate 100 mg PO BID 7 Days #14 cap 08/16/20 ondansetron 4 mg PO Q6H PRN #10 tab 09/01/20 Allergies Allergy/AdvReac Type Severity Reaction Status Date / Time trazodone [Trazodone] Allergy Severe SWOLLEN Verified 09/04/20 16:01 TONGUE amoxicillin [Amoxicillin] Allergy Unknown UNKNOWN Verified 09/04/20 16:01 haloperidol [From HALDOL] Allergy Unknown UNKNOWN Verified 09/04/20 16:01 Amoxicillin Allergy Unknown Unknown Uncoded 08/16/20 19:47 Review of Systems Review of Systems: Pertinent positives and negatives as stated in HPI 10 point review of systems is otherwise negative. [facility] Past Medical History Source: nursing notes reviewed Medical History Anxiety Schizoaffective disorder Substance abuse Family History Family History Other Family history non-contributory Social History Social History Substance Use Type: Opiates Advance Directives: No Advance Directives Information Provided: No Physical Exam Vital Signs: Vital Signs: Last Vital Signs Temp 97.9 F 09/05/20 03:05 Pulse 93 09/05/20 03:05 Resp 18 09/05/20 03:05 BP 147/68 H 09/05/20 03:05 Pulse Ox 97 09/05/20 03:05 Body Mass Index 24.0 VITAL SIGNS: Reviewed. GENERAL: Well developed, well nourished, in no acute distress. HEAD: Normocephalic/atraumatic EYES: PERRLA, EOMI NOSE: Nares patent bilateral OROPHARYNX: no oral lesions noted, posterior pharynx clear NECK: Supple, no adenopathy LUNGS: Normal breath sounds. SpO2<97> CARDIOVASCULAR: Regular rate and rhythm without noted murmurs ABDOMEN: Soft, non-tender, non-distended with bowel sounds. SKIN: Inspection of the skin reveals evidence of picking at the skin without surrounding erythema or purulence NEUROLOGIC: Alert and oriented x 4. Course Course Course Narrative: This is a 30-year-old male with history and clinical presentation consistent with what appears to be behavioral associated nausea and vomiting but is now tolerating oral intake. On review of documentation and prior lab work there is no evidence of acute findings and behavioral team cleared the patient earlier from a psychiatric perspective and patient is c urrently denying any suicidal homicidal ideation. He is requesting to leave and will be discharged in stable condition. Discharge Plan Discharge Clinical Impression: Self induced vomiting Patient Disposition: Xfer Other Additional Instructions: Please resume all medications as prescribed. Please follow-up with your primary care provider in the next 2-3 days. Do not hesitate to return to the emergency department for any acute worsening of her symptoms. Prescriptions: No Action doxycycline monohydrate 100 mg capsule 100 mg PO BID 7 Days Qty: 14 RF: 0 ondansetron 4 mg tablet,disintegrating 4 mg PO Q6H PRN (Reason: nausea and vomiting) Qty: 10 RF: 0 divalproex [Depakote ER] 500 mg tablet extended release 24 hr 2 tab PO BID RF: 0 docusate sodium 100 mg capsule 1 cap PO BID RF: 0 mupirocin 2 % ointment topical RF: 0 zolpidem 5 mg tablet 1 tab PO BEDTIME PRN (Reason: Sleep) RF: 0 fluoxetine 20 mg capsule 1 mg PO DAILY RF: 0 Referrals: Physician,Unknown [Primary Care Provider] - 2 days
== END 2020-09-05 05:47 | disposition home or self-care (01) ==
PROVIDERS: Emergency Provider Student in an Organized Health Care Education/Training Program
DX: R11.2 Nausea with vomiting, unspecified (principal); F11.90 Opioid use, unspecified, uncomplicated; Z79.899 Other long term (current) drug therapy
CPT/HCPCS: 96365; 96375; 99283; 99284

== ENCOUNTER 2020-09-17 20:02 | Emergency (ER) | payer MEDICARE, MEDICAID, SELFPAY ==
[2020-09-17 20:10] VITALS: BP 150/78; PULSE 103; RESP 18; TEMP 36.7; O2SAT 95; BMI 25.0
--- NOTE | 2020-09-17 20:10 | ED_ITS ---
HPI - Psych General Chief Complaint: Psychiatric Symptoms Stated Complaint: crisis Time Seen by Provider: 09/17/20 20:17 Source: patient and EMS Mode of arrival: EMS Limitations: other (Cognitive impairment) History of Present Illness HPI Narrative: 30-year-old male with past medical history of schizophrenia, deaf, depression, polysubstance abuse, and chronic wounds from skin picking presents via EMS from his [place] [facility] after a verbal altercation with his roommate. His roommate said derogatory comments about his mother, patient was very angry and stated that he want to kill people. Police were called to the home, patient was brought to emergency department for evaluation. He does have multiple wounds on his face, neck, and arms consistent with his prior history of obsessive skin picking. At this time patient does not report any chest pain or pressure, palpitations, shortness of breath, abdominal pain, abdominal distention, fevers, chills, suicidal ideation, homicidal ideation, or auditory visual hallucinations. MD complaint: homicidal ideation and anxiety Onset (ago): hour(s) (Within the hour of arrival) Duration: resolved prior to arrival History of same: Yes Exacerbating factors: drug use and other (Situational) Context: recent drug abuse and significant life stressor Associated psychiatric symptoms: depression Associated symptoms: denies other symptoms Treatments prior to arrival: none Related Data Home Medications Medication Instructions Recorded Confirmed divalproex [Depakote ER] 2 tab PO BID 09/04/20 09/04/20 docusate sodium 1 cap PO BID 09/04/20 09/04/20 fluoxetine 1 mg PO DAILY 09/04/20 09/04/20 mupirocin TOPICAL 09/04/20 zolpidem 1 tab PO BEDTIME PRN 09/04/20 09/04/20 Previous Rx's Medication Instructions Recorded doxycycline monohydrate 100 mg PO BID 7 Days #14 cap 08/16/20 ondansetron 4 mg PO Q6H PRN #10 tab 09/01/20 doxycycline monohydrate 100 mg PO BID 10 Days #20 cap 09/17/20 Allergies Allergy/AdvReac Type Severity Reaction Status Date / Time trazodone [Trazodone] Allergy Severe SWOLLEN Verified 09/04/20 16:01 TONGUE amoxicillin [Amoxicillin] Allergy Unknown UNKNOWN Verified 09/04/20 16:01 haloperidol [From HALDOL] Allergy Unknown UNKNOWN Verified 09/04/20 16:01 Amoxicillin Allergy Unknown Unknown Uncoded 08/16/20 19:47 Review of Systems Review of Systems: Constitutional: No Fever, No Chills ENT/Mouth: No Ear Pain, No Nasal Congestion, No sore throat Eyes: No Eye Pain, No Swelling, No Redness Cardiovascular: No Chest Pain, No SOB Respiratory: No Cough, No Sputum, No Dyspnea Gastrointestinal: No Nausea, No Vomiting, No Diarrhea, No Hematochezia, No Melena Genitourinary: No Dysuria, No Urinary Frequency, No Hematuria Musculoskeletal: No Myalgias Skin: No Skin Lesions, No rash Neuro: No Weakness, No Numbness, No Paresthesias, No Dizziness, No Headache Psych: positive Anxiety, positive Depression, positive HI Heme/Lymph: No Lymphadenopathy Endocrine: No Polyuria, No Polydipsia Yes all other systems are reviewed and are negative [facility] Past Medical History Attestation statement: The following information was validated with the patient. Source: old records reviewed Medical History Anxiety Schizoaffective disorder Substance abuse Family History Family History Other Family history non-contributory Social History Social History Substance Use Type: Opiates Advance Directives: No Advance Directives Information Provided: Yes Physical Exam Vital Signs: Vital Signs: Last Vital Signs Temp 98.1 F 09/17/20 20:10 Pulse 103 H 09/17/20 20:10 Resp 18 09/17/20 20:10 BP 150/78 H 09/17/20 20:10 Pulse Ox 95 09/17/20 20:10 Body Mass Index 25.0 Appearance: Alert. Oriented X3. No acute distress. Eyes: Pupils equal, round and reactive to light. EOMI, sclera nonicteric ENT: Pharynx normal. Moist mucous membranes Neck: Normal inspection. Neck supple. CVS: Normal heart rate and rhythm. Pulses normal. Respiratory: No respiratory distress. Breath sounds normal. Abdomen: Soft and nontender. Skin: Multiple wounds largest measuring 3 cm in diameter to face, scalp, neck, and arms. Skin warm and dry. Normal skin color. Normal skin turgor. Extremities: No lower extremity edema. Neuro: No motor deficit. No sensory deficit. Course Course Course Narrative: 30-year-old male with past medical history of schizophrenia, deaf, depression, polysubstance abuse, and chronic wounds from skin picking presents via EMS from his [place] [facility] after a verbal altercation with his roommate. Patient is common cooperative at the time of arrival, will order GUO and crisis consult. Care team consult completed, plan is for patient to follow-up with outpatient psychiatry and for patient to be discharged home. I will treat with doxycycline for his chronic skin picking as the wound on his neck has some purulent drainage . He is followed by wound care chronically for obsessive skin picking. MDM - Psych Differential Diagnosis Differential diagnosis: Likely acute psychosis, homicidal ideation, depression, drug-induced psychotic disorder, acute anxiety, substance abuse and schizoaffective disorder Medical Records Attestation: I reviewed the patient's medical records. Lab Data Attestation: I reviewed the patient's lab results. Labs: Lab Results 09/17/20 09/17/20 Range/Units 20:24 20:24 Urine Opiates Screen POSITIVE H (Not Detect) Ur Barbiturates Screen Not Detected (Not Detect) Ur Phencyclidine Scrn Not Detected (Not Detect) Ur Amphetamines Screen Not Detected (Not Detect) U Benzodiazepines Scrn Not Detected (Not Detect) Urine Cocaine Screen Not Detected (Not Detect) U Marijuana (THC) Screen POSITIVE H (Not Detect) COVID-19 (JOAN) Negative (Negative) COVID-19 Clin Com See Note Discharge Plan Discharge Clinical Impression: Substance abuse, Chronic wound of extremity, Depression, Acute anxiety Patient Disposition: Home, Self-Care Instructions: Depression (ED), Polysubstance Abuse (ED), Anxiety (ED) Additional Instructions: You were evaluated for anxiety, depression, and chronic wound. Please take doxycycline as directed. This medication is an antibiotic. Please follow-up with outpatient psychiatry as scheduled. Thank you for choosing this emergency department for evaluation. Please follow-up with primary care physician as needed. Return to the emergency department for any new, concerning, or worsening symptoms. Prescriptions: New doxycycline monohydrate 100 mg capsule 100 mg PO BID 10 Days Qty: 20 RF: 0 No Action doxycycline monohydrate 100 mg capsule 100 mg PO BID 7 Days Qty: 14 RF: 0 ondansetron 4 mg tablet,disintegrating 4 mg PO Q6H PRN (Reason: nausea and vomiting) Qty: 10 RF: 0 divalproex [Depakote ER] 500 mg tablet extended release 24 hr 2 tab PO BID RF: 0 docusate sodium 100 mg capsule 1 cap PO BID RF: 0 mupirocin 2 % ointment topical RF: 0 zolpidem 5 mg tablet 1 tab PO BEDTIME PRN (Reason: Sleep) RF: 0 fluoxetine 20 mg capsule 1 mg PO DAILY RF: 0 Interventions: ED Discharge Assessment Last Done: 09/17/20 21:53 Discharge Date/Time: 09/17/20 22:08
[2020-09-17] MEDS: LORazepam 1 MG TABLET 2 MG PO (20:31)
[2020-09-17 20:55] LABS: COVID-19 Test Negative (Negative)
[2020-09-17 21:06] LABS: Amphetamine Screen Urine Not Detected (Not Detect); Barbiturates, Urine Not Detected (Not Detect); Benzodiazepines Screen Urine Not Detected (Not Detect); Cannabinoid Screen Urine POSITIVE (Not Detect); Cocaine Screen Urine Not Detected (Not Detect); Opiate Screen Urine POSITIVE (Not Detect); Phencyclidine Screen Urine Not Detected (Not Detect)
--- NOTE | 2020-09-17 21:51 | MHC.CARE ---
CARE Team meets with pt after pt is transported to the ED from his [facility] due to making threatening statements toward staff and breaking a plate. Pt states that staff member was comparing someone pt's mother used to date to a crack baby. Pt became upset, throwing a sandwhich. He was able to quickly calm down and has an insightful conversation with CARE TEam. Pt identifies that staff's comment brought up negative memories from childhood. He identifies that drug life is what he experienced as a child and identifies that he feels very misunderstood everywhere he goes. Pt denies any current homicidal or violent ideation. He states that he would like to move to his own apartment, but is understanding that this will be a long process. In the meantime, pt would like to return to . He states that he will not cause any further disturbance there and will not destroy property or make threats. Pt states that he would like to walk home in order to clear his head. Pt identifies several coping strategies, such as taking a walk or listening to music, that he will utilize if he feels angry. CARE Team speaks with Dale, store deli manager of [facility]. Dale states that has been trying to get pt a bed at [facility], as pt has been intermittently using heroin. CARE Team voices some concern about ATS level of care being able to meet pt's unique needs. CARE Team recommends mobile N crisis assessment and provides information about EATS level of care. CARE Team also provides information about Sect 35, as pt seems ambivelant about detox at this time and may ot benefit. Pt is at higher risk of OD due to poor judgment. Plan is for pt to d/c back to [facility]. Dale is reluctant, wanting pt to remain in ED overnight so they can pursue ATS bed, however, he is agreeable with plan. Plan is discussed with and approved by Genna Gonzalez NP.
== END 2020-09-17 22:08 | disposition home or self-care (01) ==
PROVIDERS: Nurse Practitioner Family; Emergency Provider Internal Medicine
DX: F32.9 Major depressive disorder, single episode, unspecified (principal); F41.9 Anxiety disorder, unspecified; F11.10 Opioid abuse, uncomplicated; F12.10 Cannabis abuse, uncomplicated; R45.850 Homicidal ideations; F20.9 Schizophrenia, unspecified; F42.4 Excoriation (skin-picking) disorder; S11.90XA Unspecified open wound of unspecified part of neck, initial encounter; X58.XXXA Exposure to other specified factors, initial encounter; Y93.9 Activity, unspecified; Y92.049 Unspecified place in boarding-house as the place of occurrence of the external cause; Y99.9 Unspecified external cause status; Z20.822 Contact with and (suspected) exposure to COVID-19
CPT/HCPCS: 36415; 80307; 87635; 99283

== ENCOUNTER 2020-09-22 19:35 | Emergency (ER) | payer MEDICARE, MEDICAID, SELFPAY ==
[2020-09-22 19:47] VITALS: BP 165/77; PULSE 86; RESP 16; TEMP 37.2; O2SAT 97; BMI 55.3
--- NOTE | 2020-09-22 20:05 | ED_ITS ---
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 He does not have any complaints at this time. Denies suicidal ideation homicidal ideation, auditory visual hallucination, and states has used any illicit subs tances since his departure from [facility] Onset (ago): year(s) Duration: constant History of same: Yes Relieving factors: none Exacerbating factors: drug use Associated psychiatric symptoms: none Associated symptoms: denies other symptoms Treatments prior to arrival: none Related Data Home Medications Medication Instructions Recorded Confirmed divalproex [Depakote ER] 2 tab PO BID 09/04/20 09/04/20 docusate sodium 1 cap PO BID 09/04/20 09/04/20 fluoxetine 1 mg PO DAILY 09/04/20 09/04/20 mupirocin TOPICAL 09/04/20 zolpidem 1 tab PO BEDTIME PRN 09/04/20 09/04/20 Previous Rx's Medication Instructions Recorded doxycycline monohydrate 100 mg PO BID 7 Days #14 cap 08/16/20 ondansetron 4 mg PO Q6H PRN #10 tab 09/01/20 doxycycline monohydrate 100 mg PO BID 10 Days #20 cap 09/17/20 Allergies Allergy/AdvReac Type Severity Reaction Status Date / Time trazodone [Trazodone] Allergy Severe SWOLLEN Verified 09/04/20 16:01 TONGUE amoxicillin [Amoxicillin] Allergy Unknown UNKNOWN Verified 09/04/20 16:01 haloperidol [From HALDOL] Allergy Unknown UNKNOWN Verified 09/04/20 16:01 Amoxicillin Allergy Unknown Unknown Uncoded 08/16/20 19:47 Review of Systems Review of Systems: Constitutional: No Fever, No Chills ENT/Mouth: No Ear Pain, No Nasal Congestion, No sore throat Eyes: No Eye Pain, No Swelling, No Redness Cardiovascular: No Chest Pain, No SOB Respiratory: No Cough, No Sputum, No Dyspnea Gastrointestinal: No Nausea, No Vomiting, No Diarrhea, No Hematochezia, No Melena Genitourinary: No Dysuria, No Urinary Frequency, No Hematuria Musculoskeletal: No Myalgias Skin: No Skin Lesions, No rash Neuro: No Weakness, No Numbness, No Paresthesias, No Dizziness, No Headache Psych: No Anxiety, no Depression, no SI/HI Heme/Lymph: No Lymphadenopathy Endocrine: No Polyuria, No Polydipsia Yes all other systems are reviewed and are negative [facility] Past Medical History Attestation statement: The following information was validated with the patient. Source: old records reviewed Medical History Anxiety Schizoaffective disorder Substance abuse Family History Family History Other Family history non-contributory Social History Social History Substance Use Type: Opiates Advance Directives: No Physical Exam Vital Signs: Vital Signs: Last Vital Signs Temp 98.9 F 09/22/20 19:47 Pulse 86 09/22/20 19:47 Resp 16 09/22/20 19:47 BP 165/77 H 09/22/20 19:47 Pulse Ox 97 09/22/20 19:47 Body Mass Index 55.3 Appearance: Alert. Oriented X3. No acute distress. Eyes: Pupils equal, round and reactive to light. ENT: Pharynx normal. Neck: Normal inspection. Neck supple. CVS: Normal heart rate and rhythm. Pulses normal. Respiratory: No respiratory distress. Breath sounds normal. Abdomen: Soft and nontender. Skin: Multiple wounds consistent with his chronic skin picking, Skin warm and dry. Normal skin color. Normal skin turgor. Extremities: No lower extremity edema. Neuro: No motor deficit. No sensory deficit. 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 10:23 p.m. tox screen positive for cocaine and marijuana. Care team eval pending. 1121 p.m. consult with care team, plan is to discharge to assisted, he was screened appropriately for risk, denies SI, HI, and promises to contract for safety. There is a plan that family will section 35 him in the morning. MDM - Psych Differential Diagnosis Differential diagnosis: Likely substance abuse Medical Records Attestation: I reviewed the patient's medical records. Lab Data Attestation: I reviewed the patient's lab results. Labs: Lab Results 09/22/20 Range/Units 22:23 Urine Opiates Screen Not Detected (Not Detect) Ur Barbiturates Screen Not Detected (Not Detect) Ur Phencyclidine Scrn Not Detected (Not Detect) Ur Amphetamines Screen Not Detected (Not Detect) U Benzodiazepines Scrn Not Detected (Not Detect) Urine Cocaine Screen POSITIVE H (Not Detect) U Marijuana (THC) Screen POSITIVE H (Not Detect) Discharge Plan Discharge Clinical Impression: Chronic schizophrenia, Acute anxiety, Substance abuse Patient Disposition: Home, Self-Care Instructions: Schizophrenia (ED), Polysubstance Abuse (ED), Anxiety (ED) Additional Instructions: Please follow-up with patient psychiatry as scheduled Thank you for choosing this emergency department for evaluation. Please follow-up with primary care physician as needed. Return to the emergency department for any new, concerning, or worsening symptoms. Prescriptions: No Action doxycycline monohydrate 100 mg capsule 100 mg PO BID 7 Days Qty: 14 RF: 0 ondansetron 4 mg tablet,disintegrating 4 mg PO Q6H PRN (Reason: nausea and vomiting) Qty: 10 RF: 0 divalproex [Depakote ER] 500 mg tablet extended release 24 hr 2 tab PO BID RF: 0 docusate sodium 100 mg capsule 1 cap PO BID RF: 0 mupirocin 2 % ointment topical RF: 0 zolpidem 5 mg tablet 1 tab PO BEDTIME PRN (Reason: Sleep) RF: 0 fluoxetine 20 mg capsule 1 mg PO DAILY RF: 0 doxycycline monohydrate 100 mg capsule 100 mg PO BID 10 Days Qty: 20 RF: 0
--- NOTE | 2020-09-22 21:06 | PC.NURSE ---
PT AWAKE AND ALERT, RESTING IN STRETCHER IN NAD. PT AWAITING FOR FURTHER ORDERS. WILL CONTINUE TO MONITOR PT.
--- NOTE | 2020-09-22 22:24 | PC.NURSE ---
pt up to restroom with steady even gait for urine sample.
[2020-09-22 23:06] LABS: Amphetamine Screen Urine Not Detected (Not Detect); Benzodiazepines Screen Urine Not Detected (Not Detect); Cannabinoid Screen Urine POSITIVE (Not Detect); Cocaine Screen Urine POSITIVE (Not Detect)
[2020-09-22 23:08] LABS: Barbiturates, Urine Not Detected (Not Detect); Opiate Screen Urine Not Detected (Not Detect); Phencyclidine Screen Urine Not Detected (Not Detect)
--- NOTE | 2020-09-23 00:19 | MHC.CARE ---
Pt presents to the ED on a sect [address] [facility] ATS. Pt was referred there against the advice of CARE Team. Pt is not likely to successfully complete ATS tx due to his mental health and developmental concerns. Pt denies SI/HI. He is calm, and more cooperative then usual in the ED, as pt is very well known to CARE Team. CARE Team speaks with Aden from [facility]. Aden reports that family is planning to go to court for a sect 35 tomorrow. Aden agrees that pt is not in imminent risk and does not need psychiatric admission at this time. Pt is able to contract for safety and current presentation does not necessitate a crisis assessment. Plan is for pt to walk back to correction as he usually does and for outpatient team and family to proceed with sect 35. Genna Ortega NP consulted with and agrees to this plan.
== END 2020-09-22 23:34 | disposition home or self-care (01) ==
PROVIDERS: Nurse Practitioner Family; Emergency Provider Emergency Medicine
DX: F20.9 Schizophrenia, unspecified (principal); F41.9 Anxiety disorder, unspecified; F14.10 Cocaine abuse, uncomplicated; F12.10 Cannabis abuse, uncomplicated; F42.4 Excoriation (skin-picking) disorder; Z79.899 Other long term (current) drug therapy
CPT/HCPCS: 80307; 99283

== ENCOUNTER 2020-12-02 12:22 | Outpatient (REF) | payer MEDICARE, MEDICAID, SELFPAY ==
--- NOTE | 2020-12-02 13:45 | MHC.AU.HFA ---
Hearing Instrument Fitting- Adult- Binaural Date of Visit: 12/02/20 Reclamation Worker Used: Not Applicable Hearing Instruments Dispensed: Left Ear: Crack Off Person: Phonak Model: AUDEO P 70-13T Serial Number: [id number] Repair Warranty: 12/29/2023 Loss and Damage Warranty: 12/29/2023 Battery Size: 13 Color: Sand Beige Speech Therapist Early Intervention: #2 UP Type of Mold: Phonak Clear Canal C-Shell #[id number] warranty expires 01/29/21 Type of Wax Guard: CeruStop Summary of Fitting: Binaural hearing aids were ordered. However, [facility] approved for only one new left hearing aid. While in a [facility] the right hearing aid was lost. Approval for a new right aid has been submitted electronically on 12/01/20. Both hearing aids were programmed today, but only the left aid was dispensed. RIGHT PROGRAMMED AID IN BOX. WILL CALL TO HAVE PATIENT ASSOCIATE PROFESSOR OF EDUCATION WHEN APPROVAL RECEIVED. Kyler was accompanied today by care home staff member Lidia. Ran feedback test and Real Ear measurements. The right aid 250-1500 Hz was increased 4 dB to better meet tartgets. Patient is very happy with the sound quality which he reports is much clearer compared to the old aids. Activated volume control and all features on default. Practiced insertion and removal of aids, changed wax guards, and reviewed care. Dispensed 42 batteries. Patient doing well while in office. A noticeable change in speech understanding occurred when the right aid was taken off. Will contact care home as soon as approval for the left aid is received and F/U appointment will be scheduled for 2 weeks after left aid has been picked up by patient. Patient does not have a cell phone at this time, but plans to be getting one and Kyler would like to pair aids to cell phone for improved phone communication. Recommendations: Recommendations: Hearing instrument care and maintenance were discussed and practiced. See handouts for care/use instructions and battery information. Hearing Instrument maintenance in 6 months, or sooner if needed. Recommendations (Other): A noticeable change in speech understanding occurred when the right aid was taken off. Will contact care home as soon as approval for the left aid is received and F/U appointment will be scheduled for 2 weeks after left aid has been picked up by patient. Diagnosis Code(s): Primary Diagnosis: H90.3 Bilateral Sensorineural Hearing Loss Services Performed: [place] (Quantity): 2 SELF Dispensing Fees: MON L SELF Product Codes: [place] 3 L Hearing Aid Fitting Services: Number of Individual Battery Cells: 42 Signature: Provider: Khanh Dumont, CCC-A
== END 2020-12-02 12:23 | disposition home or self-care (01) ==
LOC: HO.HAP 12:22
PROVIDERS: Visit Provider Internal Medicine
DX: Z46.1 Encounter for fitting and adjustment of hearing aid (principal); H90.3 Sensorineural hearing loss, bilateral
CPT/HCPCS: 92594; V5011; V5020; V5241; V5257; V5264; V5266

== ENCOUNTER 2020-12-13 09:34 | Outpatient (REF) | payer MEDICARE, MEDICAID, SELFPAY | END 2020-12-13 09:35 | disposition home or self-care (01) | LOC: HO.HAP 09:34 | PROVIDERS: Visit Provider Internal Medicine | DX: Z46.1 Encounter for fitting and adjustment of hearing aid (principal) | CPT/HCPCS: V5241; V5257; V5264 ==

== ENCOUNTER 2020-12-30 20:03 | Emergency (ER) | payer MEDICARE, MEDICAID, SELFPAY ==
[2020-12-30 20:16] VITALS: BP 144/74; PULSE 127; RESP 18; O2SAT 97; BMI 29.8
[2020-12-30 20:33] LABS: Glucose Urine UA NEG (NEG); Leukocyte Esterase Urine NEG (NEG); Nitrite Urine NEG (NEG); PH 5.5 (5.0-8.0); Specific Gravity - Urine >= 1.030 (1.005-1.025); Urine Blood NEG (NEG); Urine Ketones 15 MG/DL (NEG); Urine Protein 1+ MG/DL (NEG-TRACE)
[2020-12-30 20:34] LABS: Appearance Urine HAZY; Color Urine YELLOW
[2020-12-30 20:41] LABS: Bacteria Urine 1+ /LPF; RBC Urine 0 /HPF (0); WBC Urine 0 /HPF (0-4)
[2020-12-30 21:00] LABS: Amphetamine Screen Urine Not Detected (Not Detect); Barbiturates, Urine Not Detected (Not Detect); Benzodiazepines Screen Urine Not Detected (Not Detect); Cannabinoid Screen Urine POSITIVE (Not Detect); Cocaine Screen Urine Not Detected (Not Detect); Opiate Screen Urine Not Detected (Not Detect); Phencyclidine Screen Urine Not Detected (Not Detect)
--- NOTE | 2020-12-30 21:30 | ED.MEDCLEAR ---
HPI - Medical Clearance General Chief complaint: Medical Clearance Stated complaint: Medical Clearance Time Seen by Provider: 12/30/20 21:30 Source: patient Mode of arrival: ambulatory Limitations: no limitations History of Present Illness HPI Narrative: Here for medical clearance. Left the half-way without permission and smoke marijuana. He otherwise denies any other substance use. MD complaint: medical clearance requested Place: home Alleged Intoxication: No Compliant with Home Medications: Yes Traumatic Symptoms: denies traumatic injury Associated Symptoms: denies other symptoms Treatments Prior to Arrival: none Related Information Home Medications Medication Instructions Recorded Confirmed divalproex [Depakote ER] 2 tab PO BID 09/04/20 09/04/20 docusate sodium 1 cap PO BID 09/04/20 09/04/20 fluoxetine 1 mg PO DAILY 09/04/20 09/04/20 mupirocin TOPICAL 09/04/20 zolpidem 1 tab PO BEDTIME PRN 09/04/20 09/04/20 Previous Rx's Medication Instructions Recorded doxycycline monohydrate 100 mg PO BID 7 Days #14 cap 08/16/20 ondansetron 4 mg PO Q6H PRN #10 tab 09/01/20 doxycycline monohydrate 100 mg PO BID 10 Days #20 cap 09/17/20 Allergies Allergy/AdvReac Type Severity Reaction Status Date / Time trazodone [Trazodone] Allergy Severe SWOLLEN Verified 12/30/20 20:21 TONGUE amoxicillin [Amoxicillin] Allergy Unknown UNKNOWN Verified 12/30/20 20:21 haloperidol [From HALDOL] Allergy Unknown UNKNOWN Verified 12/30/20 20:21 Amoxicillin Allergy Unknown Unknown Uncoded 12/30/20 20:21 Review of Systems Review of Systems: Constitutional: No Weight loss, No Fever, No Chills, No Night Sweats, No Fatigue, No Malaise ENT/Mouth: No Hearing loss, No Ear Pain, No Nasal Congestion, No Sinus Pain, No Hoarseness, No sore throat, No Rhinorrhea, No Swallowing Difficulty Eyes: No Eye Pain, No Swelling, No Redness, No Foreign Body, No Discharge, No Vision Changes Cardiovascular: No Chest Pain, No SOB, No Dyspnea on Exertion, No Orthopnea, No Edema, No Palpitations Respiratory: No Cough, No Sputum, No Wheezing, No Smoke Exposure, No Dyspnea Gastrointestinal: No Nausea, No Vomiting, No Diarrhea, No Constipation, No abdominal Pain, No Hematochezia, No Melena Genitourinary: no irregular bleeding, No Dysuria, No Urinary Frequency, No Hematuria, No Urinary Incontinence, No Urgency, No Flank Pain, No Urinary Flow Changes, No Hesitancy Musculoskeletal: No joint pain, No Myalgias, No Joint Swelling Skin: No Skin Lesions, No rash Neuro: No Weakness, No Numbness, No Paresthesias, No Loss of Consciousness, No Dizziness, No Headache Psych: No Anxiety/Panic, No Depression, No SI/HI/AH/VH, No Social Issues Heme/Lymph: No Bruising, No Bleeding,No Lymphadenopathy Endocrine: No Polyuria, No Polydipsia, No Temperature Intolerance Yes all other systems are reviewed and are negative [facility] Past Medical History Medical History Anxiety Schizoaffective disorder Substance abuse Family History Family History Other Family history non-contributory Social History Social History Substance Use Type: Opiates Advance Directives: No Advance Directives Information Provided: No Physical Exam Vital Signs: Vital Signs: Last Vital Signs Pulse 127 H 12/30/20 20:16 Resp 18 12/30/20 20:16 BP 144/74 H 12/30/20 20:16 Pulse Ox 97 12/30/20 20:16 Body Mass Index 29.8 Reviewed Repeat heart rate 95 Const: General: cooperative and healthy appearing; No acute distress or intoxicated appearing Nutritional Appearance: average body habitus Orientation/consciousness: patient oriented x3 HENMT: Head: Yes normal to inspection Ears: hearing grossly normal bilaterally Eyes: General: appearance normal, both eyes and all related structures Visual Robles: normal visual robles by confrontation Neck: Neck: Yes normal visual inspection, No positive Brudzinski's sign, No positive Kernig's sign and No tender Thyroid: Thyroid normal Chest: Chest palpation & inspection: normal inspection of the chest Resp: Effort & Inspection: normal respiratory effort Auscultation: clear to auscultation bilaterally Cardio: Jugular venous distension: no JVD Rhythm: regular rhythm Heart sounds: S1 normal heart sound present and S2 normal heart sound present GI: Inspection: Yes normal to inspection Palpation (GI): Soft to palpation Percussion: Yes normal to percussion Auscultation: normal bowel sounds : General: Yes no CVA tenderness Back/Spine/Pelvis: Back: no CVA tenderness Skin: General skin exam: no rashes or lesions noted Neuro: General: patient oriented x3 Extrem: General: Yes normal to inspection Course Reevaluation(s) Reevaluation #1: No SI or HI. Tox reviewed Will return back to half-way MDM - Medical Clearance Lab Data Labs: Lab Results 12/30/20 12/30/20 Range/Units 20:28 20:28 Urine Color YELLOW Urine Appearance HAZY Urine pH 5.5 (5.0-8.0) Ur Specific [place] >= 1.030 H (1.005-1.025) Urine Protein 1+ H (NEG-TRACE) MG/DL Urine Glucose (UA) NEG (NEG) MG/DL Urine Ketones 15 (NEG) MG/DL Urine Blood NEG (NEG) Urine Nitrite NEG (NEG) Ur Leukocyte Esterase NEG (NEG) Urine RBC 0 (0) /HPF Urine WBC 0 (0-4) /HPF Ur Squamous Epith Cells NONE /LPF Urine Bacteria 1+ /LPF Urine Opiates Screen Not Detected (Not Detect) Ur Barbiturates Screen Not Detected (Not Detect) Ur Phencyclidine Scrn Not Detected (Not Detect) Ur Amphetamines Screen Not Detected (Not Detect) U Benzodiazepines Scrn Not Detected (Not Detect) Urine Cocaine Screen Not Detected (Not Detect) U Marijuana (THC) Screen POSITIVE H (Not Detect) Discharge Plan Discharge Clinical Impression: Cannabis abuse Patient Disposition: Home, Self-Care Instructions: Cannabis Abuse (ED) Additional Instructions: Drug toxicity screen was positive for marijuana Otherwise negative. Copy provided. Can return to half-way Thank you Prescriptions: No Action doxycycline monohydrate 100 mg capsule 100 mg PO BID 7 Days Qty: 14 RF: 0 ondansetron 4 mg tablet,disintegrating 4 mg PO Q6H PRN (Reason: nausea and vomiting) Qty: 10 RF: 0 divalproex [Depakote ER] 500 mg tablet extended release 24 hr 2 tab PO BID RF: 0 docusate sodium 100 mg capsule 1 cap PO BID RF: 0 mupirocin 2 % ointment topical RF: 0 zolpidem 5 mg tablet 1 tab PO BEDTIME PRN (Reason: Sleep) RF: 0 fluoxetine 20 mg capsule 1 mg PO DAILY RF: 0 doxycycline monohydrate 100 mg capsule 100 mg PO BID 10 Days Qty: 20 RF: 0 Referrals: Elia Argueta MD [Primary Care Provider] - 1 week
[2020-12-30 22:17] VITALS: BP 139/87; PULSE 99; RESP 16; TEMP 36.8; O2SAT 100
== END 2020-12-30 21:33 | disposition home or self-care (01) ==
PROVIDERS: Emergency Provider Emergency Medicine; PCP Internal Medicine
DX: Z02.2 Encounter for examination for admission to residential institution (principal); F12.10 Cannabis abuse, uncomplicated; F25.9 Schizoaffective disorder, unspecified; Z79.899 Other long term (current) drug therapy
CPT/HCPCS: 80307; 81001; 99283

== ENCOUNTER 2021-01-20 22:44 | Emergency (ER) | payer MEDICARE, MEDICAID, SELFPAY ==
[2021-01-20 22:59] VITALS: BP 147/80; PULSE 100; RESP 18; TEMP 36.6; O2SAT 97; BMI 28.1
[2021-01-21] VITALS: RESP 18
--- NOTE | 2021-01-21 00:36 | ED_ITS ---
HPI - Medical Clearance General Chief complaint: Medical Clearance Stated complaint: Medical Clearance Source: patient Mode of arrival: ambulatory Limitations: no limitations History of Present Illness HPI Narrative: 30-year-old male well known to this facility presents with request for medical clearance. He requires medical clearance because he left his prison and they require labs and tox screen prior to acceptance. Patient does not report suicidal ideation, homicidal ideation, does not report any physical complaints at this time. MD complaint: medical clearance requested Onset (ago): hour(s) (Within the hour arrival) Reason for Medical Clearance: psychiatric condition Place: home Alleged Intoxication: Yes Compliant with Home Medications: Yes Traumatic Symptoms: denies traumatic injury Associated Symptoms: denies other symptoms Treatments Prior to Arrival: none Related Information Home Medications Medication Instructions Recorded Confirmed divalproex [Depakote ER] 2 tab PO BID 09/04/20 09/04/20 docusate sodium 1 cap PO BID 09/04/20 09/04/20 fluoxetine 1 mg PO DAILY 09/04/20 09/04/20 mupirocin TOPICAL 09/04/20 zolpidem 1 tab PO BEDTIME PRN 09/04/20 09/04/20 Previous Rx's Medication Instructions Recorded doxycycline monohydrate 100 mg PO BID 7 Days #14 cap 08/16/20 ondansetron 4 mg PO Q6H PRN #10 tab 09/01/20 doxycycline monohydrate 100 mg PO BID 10 Days #20 cap 09/17/20 Allergies Allergy/AdvReac Type Severity Reaction Status Date / Time trazodone [Trazodone] Allergy Severe SWOLLEN Verified 12/30/20 20:21 TONGUE amoxicillin [Amoxicillin] Allergy Unknown UNKNOWN Verified 12/30/20 20:21 haloperidol [From HALDOL] Allergy Unknown UNKNOWN Verified 12/30/20 20:21 Amoxicillin Allergy Unknown Unknown Uncoded 12/30/20 20:21 Review of Systems Review of Systems: Constitutional: No Fever, No Chills ENT/Mouth: No sore throat, No Rhinorrhea Eyes: No Eye Pain, No Swelling, No Redness Cardiovascular: No Chest Pain, No SOB Respiratory: No Cough, No Sputum Gastrointestinal: No Nausea, No Vomiting, No Diarrhea, No abdominal Pain Genitourinary: No Dysuria, No Hematuria Musculoskeletal: No joint pain, No Myalgias, No Joint Swelling Skin: No Skin Lesions, No rash Neuro: No Weakness, No Numbness, No Loss of Consciousness, No Dizziness, No Headache Psych: No Anxiety, No Depression, No SI/HI/AH/VH Heme/Lymph: No Bruising, No Bleeding,No Lymphadenopathy Endocrine: No Polyuria, No Polydipsia Yes all other systems are reviewed and are negative [facility] Past Medical History Attestation statement: The following information was validated with the patient. Source: old records reviewed Medical History Anxiety Schizoaffective disorder Substance abuse Family History Family History Other Family history non-contributory Social History Social History Substance Use Type: Opiates Advance Directives: No Physical Exam Vital Signs: Vital Signs: Last Vital Signs Temp 98 F 01/20/21 22:59 Pulse 100 01/20/21 22:59 Resp 18 01/20/21 22:59 BP 147/80 H 01/20/21 22:59 Pulse Ox 97 01/20/21 22:59 Body Mass Index 28.1 Appearance: Alert. Oriented X3. No acute distress. Eyes: Pupils equal, round and reactive to light. ENT: Pharynx normal. Neck: Normal inspection. Neck supple. CVS: Normal heart rate and rhythm. Pulses normal. Respiratory: No respiratory distress. Breath sounds normal. Abdomen: Soft and nontender. Skin: Skin warm and dry. Normal skin color. Normal skin turgor. Extremities: No lower extremity edema. Neuro: No motor deficit. No sensory deficit. Course Course Course Narrative: 30-year-old male well known to this facility for substance abuse and psychiatric evaluations presents for medical clearance. Will order lab values and tox screen. Lab values are consistent with his priors H&H 12.7/37.4, lymphocytes 14.2 which is an improvement from prior values, BUN 22 which is consistent with mild dehydration and is an improvement from his prior value of 29. Urinalysis is negative. Patient is medically cleared. Plan of care to discharge home. MDM - Medical Clearance MDM Narrative Medical decision making narrative: Medical clearance. Medical Records Attestation: I reviewed the patient's medical records. Lab Data Attestation: I reviewed the patient's lab results. Result diagrams: 01/21/21 00:46 01/21/21 00:46 Labs: Lab Results 01/21/21 01/21/21 01/21/21 Range/Units 00:46 00:46 00:46 WBC 7.2 (4.8-10.8) X10*3/uL RBC 3.82 L (4.60-5.80) X10*6/uL Hgb 12.7 L (14.0-18.0) g/dl Hct 37.4 L (42-52) % MCV 97.9 (80-98) fL MCH 33.2 H (27.0-33.0) pg MCHC 34.0 (31.0-36.0) g/dl RDW 12.5 (11.0-16.0) % Plt Count 245 D (160-400) X10*3/uL MPV 8.4 L (9.4-12.4) fL Immature Gran % (Auto) 0.3 (0.0-0.4) % Neut % (Auto) 72.7 (45-73) % Lymph % (Auto) 14.2 L (20-40) % [place] % (Auto) 12.6 H (2-11) % Eos % (Auto) 0.1 (0-4) % Baso % (Auto) 0.1 (0-2) % Lymph # (Auto) 1.0 L (1.2-4.9) X10*3/uL [place] # (Auto) 0.9 (0.1-1.2) X10*3/uL Eos # (Auto) 0.0 (0.0-0.4) X10*3/uL Baso # (Auto) 0.0 (0.0-0.2) X10*3/uL Abs Immat Gran (auto) 0.02 (0.00-0.03) X10*3/uL Absolute Neuts (auto) 5.3 (2.0-8.3) X10*3/uL Absolute Nucleated RBC 0.000 (0.0-0.012) X10*3/uL Nucleated RBC % (auto) 0.0 (0.0-0.2) /100WBC Sodium 138 (135-145) mmol/L Potassium 4.8 (3.3-5.1) mmol/L Chloride 107 (96-108) mmol/L Carbon Dioxide 22 (22-29) mmol/L Anion Gap 14 (12-20) BUN 22 H (9-16) mg/dL Creatinine 1.36 (0.5-1.4) mg/dL Estim Creat Clear Calc 81.9 Estimated GFR > 60 Random Glucose 83 (60-115) mg/dL Calcium 9.6 (8.4-10.2) mg/dL Urine Color Urine Appearance Urine pH (5.0-8.0) Ur Specific [place] (1.005-1.025) Urine Protein (NEG-TRACE) MG/DL Urine Glucose (UA) (NEG) MG/DL Urine Ketones (NEG) MG/DL Urine Blood (NEG) Urine Nitrite (NEG) Ur Leukocyte Esterase (NEG) Salicylates < 5.0 L (15-30) mg/dL Acetaminophen < 1 (<30) mcg/mL Ethyl Alcohol < 10 mg/dL 01/21/21 Range/Units 01:25 WBC (4.8-10.8) X10*3/uL RBC (4.60-5.80) X10*6/uL Hgb (14.0-18.0) g/dl Hct (42-52) % MCV (80-98) fL MCH (27.0-33.0) pg MCHC (31.0-36.0) g/dl RDW (11.0-16.0) % Plt Count (160-400) X10*3/uL MPV (9.4-12.4) fL Immature Gran % (Auto) (0.0-0.4) % Neut % (Auto) (45-73) % Lymph % (Auto) (20-40) % [place] % (Auto) (2-11) % Eos % (Auto) (0-4) % Baso % (Auto) (0-2) % Lymph # (Auto) (1.2-4.9) X10*3/uL [place] # (Auto) (0.1-1.2) X10*3/uL Eos # (Auto) (0.0-0.4) X10*3/uL Baso # (Auto) (0.0-0.2) X10*3/uL Abs Immat Gran (auto) (0.00-0.03) X10*3/uL Absolute Neuts (auto) (2.0-8.3) X10*3/uL Absolute Nucleated RBC (0.0-0.012) X10*3/uL Nucleated RBC % (auto) (0.0-0.2) /100WBC Sodium (135-145) mmol/L Potassium (3.3-5.1) mmol/L Chloride (96-108) mmol/L Carbon Dioxide (22-29) mmol/L Anion Gap (12-20) BUN (9-16) mg/dL Creatinine (0.5-1.4) mg/dL Estim Creat Clear Calc Estimated GFR Random Glucose (60-115) mg/dL Calcium (8.4-10.2) mg/dL Urine Color YELLOW Urine Appearance CLEAR Urine pH 6.0 (5.0-8.0) Ur Specific [place] 1.025 (1.005-1.025) Urine Protein NEG (NEG-TRACE) MG/DL Urine Glucose (UA) NEG (NEG) MG/DL Urine Ketones 5 (NEG) MG/DL Urine Blood NEG (NEG) Urine Nitrite NEG (NEG) Ur Leukocyte Esterase NEG (NEG) Salicylates (15-30) mg/dL Acetaminophen (<30) mcg/mL Ethyl Alcohol mg/dL Discharge Plan Discharge Clinical Impression: Substance abuse, Encounter for medical clearance for patient hold Patient Disposition: Home, Self-Care Instructions: Medical Clearance for Substance Abuse Treatment (ED) Additional Instructions: You presented to the emergency department for medical clearance. Lab values are within normal limits and consistent with your prior lab values. Thank you for choosing this emergency department for evaluation. Please follow-up with primary care physician as needed. Return to the emergency department for any new, concerning, or worsening symptoms. Prescriptions: No Action doxycycline monohydrate 100 mg capsule 100 mg PO BID 7 Days Qty: 14 RF: 0 ondansetron 4 mg tablet,disintegrating 4 mg PO Q6H PRN (Reason: nausea and vomiting) Qty: 10 RF: 0 divalproex [Depakote ER] 500 mg tablet extended release 24 hr 2 tab PO BID RF: 0 docusate sodium 100 mg capsule 1 cap PO BID RF: 0 mupirocin 2 % ointment topical RF: 0 zolpidem 5 mg tablet 1 tab PO BEDTIME PRN (Reason: Sleep) RF: 0 fluoxetine 20 mg capsule 1 mg PO DAILY RF: 0 doxycycline monohydrate 100 mg capsule 100 mg PO BID 10 Days Qty: 20 RF: 0
[2021-01-21 00:51] LABS: MANUAL DIFF FLAG NO
[2021-01-21 00:52] LABS: Basophils Percent Auto 0.1 % (0-2); Eosinophils Percent Auto 0.1 % (0-4); Hematocrit 37.4 % (42-52); Hemoglobin 12.7 g/dl (14.0-18.0); Imm Gran Abs Auto 0.02 X10*3/uL (0.00-0.03); Imm Gran Pct Auto 0.3 % (0.0-0.4); Lymphocytes Percent Auto 14.2 % (20-40); Mean Corpuscular Hemoglobin 33.2 pg (27.0-33.0); Mean Corpuscular Volume 97.9 fL (80-98); Mean Platelet Volume 8.4 fL (9.4-12.4); Monocytes Absolute Auto 0.9 X10*3/uL (0.1-1.2); Monocytes Percent Auto 12.6 % (2-11); Neutrophils Absolute Auto 5.3 X10*3/uL (2.0-8.3); Neutrophils Percent Auto 72.7 % (45-73); Platelet Count 245 X10*3/uL (160-400); Red Blood Count 3.82 X10*6/uL (4.60-5.80); Red Cell Distribution Width 12.5 % (11.0-16.0); White Blood Count 7.2 X10*3/uL (4.8-10.8)
[2021-01-21 01:19] LABS: Ethanol < 10 mg/dL
[2021-01-21 01:21] LABS: Acetaminophen LAB < 1 mcg/mL (<30); Anion Gap 14 (12-20); Blood Urea Nitrogen 22 mg/dL (9-16); Calcium 9.6 mg/dL (8.4-10.2); Carbon Dioxide 22 mmol/L (22-29); Chloride 107 mmol/L (96-108); Creatinine Clr Calc Pharmacy 81.9; Estimated Glomerular Filt Rate > 60; Glucose Random 83 mg/dL (60-115); Potassium 4.8 mmol/L (3.3-5.1); Salicylate < 5.0 mg/dL (15-30); Sodium 138 mmol/L (135-145)
[2021-01-21 01:43] LABS: Appearance Urine CLEAR; Color Urine YELLOW; Glucose Urine UA NEG (NEG); Leukocyte Esterase Urine NEG (NEG); Nitrite Urine NEG (NEG); Specific Gravity - Urine 1.025 (1.005-1.025); Urine Blood NEG (NEG); Urine Ketones 5 MG/DL (NEG); Urine Protein NEG (NEG-TRACE)
[2021-01-21 02:00] VITALS: RESP 18
[2021-01-21 02:13] LABS: Amphetamine Screen Urine Not Detected (Not Detect); Barbiturates, Urine Not Detected (Not Detect); Benzodiazepines Screen Urine Not Detected (Not Detect); Cannabinoid Screen Urine POSITIVE (Not Detect); Cocaine Screen Urine Not Detected (Not Detect); Opiate Screen Urine POSITIVE (Not Detect); Phencyclidine Screen Urine Not Detected (Not Detect)
== END 2021-01-21 02:55 | disposition home or self-care (01) ==
PROVIDERS: Nurse Practitioner Family; Emergency Provider Student in an Organized Health Care Education/Training Program
DX: Z02.2 Encounter for examination for admission to residential institution (principal); F19.10 Other psychoactive substance abuse, uncomplicated; F25.9 Schizoaffective disorder, unspecified; F41.9 Anxiety disorder, unspecified; Z79.899 Other long term (current) drug therapy
CPT/HCPCS: 36415; 80048; 80143; 80179; 80307; 81003; 82077; 85025; 99283; 99284

== ENCOUNTER 2021-01-26 17:42 | Emergency (ER) | payer MEDICARE, MEDICAID, SELFPAY ==
[2021-01-26 19:03] VITALS: BP 172/74; PULSE 72; RESP 18; TEMP 36.8; O2SAT 96; BMI 27.3
--- NOTE | 2021-01-26 19:36 | ED.GENADULT ---
HPI - General Adult General Chief complaint: General Medical Stated complaint: Crisis Time Seen by Provider: 01/26/21 19:36 Source: patient Mode of arrival: ambulatory Limitations: no limitations History of Present Illness HPI narrative: 30 y/o male with history of schizoaffective disorder, anxiety, substance abuse who is presenting for medical clearance in order to go back to his intermediate. He admits to smoking marijuana and needs to be cleared by N. He was here 5 days ago for the same thing. He denies SI, HI, AH/ VH. He would like to go back to his intermediate. He is calm and cooperative. complaint: medical clearance Onset (ago): hour(s) Severity: mild Associated symptoms: denies other symptoms Treatments prior to arrival: none Related Data Home Medications Medication Instructions Recorded Confirmed divalproex 2 tab PO BID 01/26/21 01/26/21 fluoxetine 1 cap PO DAILY 01/26/21 01/26/21 olanzapine 1 tab PO BID 01/26/21 01/26/21 olanzapine [Zyprexa] 1 tab PO BEDTIME 01/26/21 01/26/21 Allergies Allergy/AdvReac Type Severity Reaction Status Date / Time trazodone [Trazodone] Allergy Severe SWOLLEN Verified 01/26/21 19:03 TONGUE amoxicillin [Amoxicillin] Allergy Unknown UNKNOWN Verified 01/26/21 19:03 haloperidol [From HALDOL] Allergy Unknown UNKNOWN Verified 01/26/21 19:03 Amoxicillin Allergy Unknown Unknown Uncoded 12/30/20 20:21 Review of Systems Review of Systems: Yes all other systems are reviewed and are negative PMFSH Past Medical History Medical History Anxiety Schizoaffective disorder Substance abuse Family History Family History Other Family history non-contributory Social History Social History Alcohol intake: never Substance Use Type: Opiates Advance Directives: No Advance Directives Information Provided: Yes Physical Exam Vital Signs: Vital Signs: Last Vital Signs Temp 98.2 F 01/26/21 19:03 Pulse 72 01/26/21 19:03 Resp 18 01/26/21 19:03 BP 172/74 H 01/26/21 19:03 Pulse Ox 96 01/26/21 19:03 Body Mass Index 27.3 Appearance: Alert. Oriented X3. No acute distress. Eyes: Pupils equal, round and reactive to light. ENT: Pharynx normal. Neck: Normal inspection. Neck supple. CVS: Normal heart rate and rhythm. Pulses normal. Respiratory: No respiratory distress. Breath sounds normal. Abdomen: Soft and nontender. +BS x4 Skin: Skin warm and dry. Normal skin color. Normal skin turgor. No rashes. Extremities: No lower extremity edema. Neuro: Oriented X 3. Calm and cooperative. Steady gait. Course Course Course Narrative: 30 y/o male presenting for medical clearance. Will get labs, depakote level and utox in order to be accepted back to his intermediate. CARE team speaking to intermediate now. Reevaluation(s) Reevaluation #1: Normal depakote level indicating compliance. He has been accepted back and is stable for discharge home. Medical Decision Making Lab Data Result diagrams: 01/26/21 19:52 01/26/21 19:52 Labs: Lab Results 01/26/21 01/26/21 01/26/21 Range/Units 19:43 19:45 19:45 WBC (4.8-10.8) X10*3/uL RBC (4.60-5.80) X10*6/uL Hgb (14.0-18.0) g/dl Hct (42-52) % MCV (80-98) fL MCH (27.0-33.0) pg MCHC (31.0-36.0) g/dl RDW (11.0-16.0) % Plt Count (160-400) X10*3/uL MPV (9.4-12.4) fL Immature Gran % (Auto) (0.0-0.4) % Neut % (Auto) (45-73) % Lymph % (Auto) (20-40) % [place] % (Auto) (2-11) % Eos % (Auto) (0-4) % Baso % (Auto) (0-2) % Lymph # (Auto) (1.2-4.9) X10*3/uL [place] # (Auto) (0.1-1.2) X10*3/uL Eos # (Auto) (0.0-0.4) X10*3/uL Baso # (Auto) (0.0-0.2) X10*3/uL Abs Immat Gran (auto) (0.00-0.03) X10*3/uL Absolute Neuts (auto) (2.0-8.3) X10*3/uL Absolute Nucleated RBC (0.0-0.012) X10*3/uL Nucleated RBC % (auto) (0.0-0.2) /100WBC Sodium (135-145) mmol/L Potassium (3.3-5.1) mmol/L Chloride (96-108) mmol/L Carbon Dioxide (22-29) mmol/L Anion Gap (12-20) BUN (9-16) mg/dL Creatinine (0.5-1.4) mg/dL Estim Creat Clear Calc Estimated GFR Random Glucose (60-115) mg/dL Calcium (8.4-10.2) mg/dL Magnesium (1.6-2.6) mg/dL Total Bilirubin (0.0-1.0) mg/dL Direct Bilirubin (0.0-0.5) mg/dL AST (5-37) U/L ALT (0-40) U/L Alkaline Phosphatase (39-117) U/L Total Protein (6.5-8.0) g/dL Albumin (3.5-5.0) g/dL Urine Color YELLOW Urine Appearance CLEAR Urine pH 6.0 (5.0-8.0) Ur Specific [place] 1.025 (1.005-1.025) Urine Protein NEG (NEG-TRACE) MG/DL Urine Glucose (UA) NEG (NEG) MG/DL Urine Ketones 5 (NEG) MG/DL Urine Blood NEG (NEG) Urine Nitrite NEG (NEG) Ur Leukocyte Esterase NEG (NEG) Urine Opiates Screen Not Detected (Not Detect) Ur Barbiturates Screen Not Detected (Not Detect) Valproic Acid (50.0-100.0) mcg/mL Ur Phencyclidine Scrn Not Detected (Not Detect) Ur Amphetamines Screen Not Detected (Not Detect) U Benzodiazepines Scrn Not Detected (Not Detect) Urine Cocaine Screen Not Detected (Not Detect) U Marijuana (THC) Screen POSITIVE H (Not Detect) Ethyl Alcohol mg/dL COVID-19 (JOAN) Negative (Negative) COVID-19 Clin Com See Note 01/26/21 01/26/21 01/26/21 Range/Units 19:46 19:52 19:52 WBC 6.2 (4.8-10.8) X10*3/uL RBC 4.25 L (4.60-5.80) X10*6/uL Hgb 14.1 (14.0-18.0) g/dl Hct 40.8 L (42-52) % MCV 96.0 (80-98) fL MCH 33.2 H (27.0-33.0) pg MCHC 34.6 (31.0-36.0) g/dl RDW 12.0 (11.0-16.0) % Plt Count 312 D (160-400) X10*3/uL MPV 8.5 L (9.4-12.4) fL Immature Gran % (Auto) 0.3 (0.0-0.4) % Neut % (Auto) 75.6 H (45-73) % Lymph % (Auto) 15.0 L (20-40) % [place] % (Auto) 8.7 (2-11) % Eos % (Auto) 0.2 (0-4) % Baso % (Auto) 0.2 (0-2) % Lymph # (Auto) 0.9 L (1.2-4.9) X10*3/uL [place] # (Auto) 0.5 (0.1-1.2) X10*3/uL Eos # (Auto) 0.0 (0.0-0.4) X10*3/uL Baso # (Auto) 0.0 (0.0-0.2) X10*3/uL Abs Immat Gran (auto) 0.02 (0.00-0.03) X10*3/uL Absolute Neuts (auto) 4.7 (2.0-8.3) X10*3/uL Absolute Nucleated RBC 0.000 (0.0-0.012) X10*3/uL Nucleated RBC % (auto) 0.0 (0.0-0.2) /100WBC Sodium 143 (135-145) mmol/L Potassium 4.7 (3.3-5.1) mmol/L Chloride 106 (96-108) mmol/L Carbon Dioxide 25 (22-29) mmol/L Anion Gap 17 (12-20) BUN 17 H (9-16) mg/dL Creatinine 1.14 (0.5-1.4) mg/dL Estim Creat Clear Calc 92.5 Estimated GFR > 60 Random Glucose 104 (60-115) mg/dL Calcium 10.1 (8.4-10.2) mg/dL Magnesium 2.0 (1.6-2.6) mg/dL Total Bilirubin 0.5 (0.0-1.0) mg/dL Direct Bilirubin 0.2 (0.0-0.5) mg/dL AST 30 D (5-37) U/L ALT 31 (0-40) U/L Alkaline Phosphatase 57 (39-117) U/L Total Protein 8.2 H (6.5-8.0) g/dL Albumin 5.0 (3.5-5.0) g/dL Urine Color Urine Appearance Urine pH (5.0-8.0) Ur Specific [place] (1.005-1.025) Urine Protein (NEG-TRACE) MG/DL Urine Glucose (UA) (NEG) MG/DL Urine Ketones (NEG) MG/DL Urine Blood (NEG) Urine Nitrite (NEG) Ur Leukocyte Esterase (NEG) Urine Opiates Screen Cancelled (Not Detect) Ur Barbiturates Screen Cancelled (Not Detect) Valproic Acid 64.2 (50.0-100.0) mcg/mL Ur Phencyclidine Scrn Cancelled (Not Detect) Ur Amphetamines Screen Cancelled (Not Detect) U Benzodiazepines Scrn Cancelled (Not Detect) Urine Cocaine Screen Cancelled (Not Detect) U Marijuana (THC) Screen Cancelled (Not Detect) Ethyl Alcohol mg/dL COVID-19 (JONA) (Negative) COVID-19 Clin Com 01/26/21 Range/Units 19:52 WBC (4.8-10.8) X10*3/uL RBC (4.60-5.80) X10*6/uL Hgb (14.0-18.0) g/dl Hct (42-52) % MCV (80-98) fL MCH (27.0-33.0) pg MCHC (31.0-36.0) g/dl RDW (11.0-16.0) % Plt Count (160-400) X10*3/uL MPV (9.4-12.4) fL Immature Gran % (Auto) (0.0-0.4) % Neut % (Auto) (45-73) % Lymph % (Auto) (20-40) % [place] % (Auto) (2-11) % Eos % (Auto) (0-4) % Baso % (Auto) (0-2) % Lymph # (Auto) (1.2-4.9) X10*3/uL [place] # (Auto) (0.1-1.2) X10*3/uL Eos # (Auto) (0.0-0.4) X10*3/uL Baso # (Auto) (0.0-0.2) X10*3/uL Abs Immat Gran (auto) (0.00-0.03) X10*3/uL Absolute Neuts (auto) (2.0-8.3) X10*3/uL Absolute Nucleated RBC (0.0-0.012) X10*3/uL Nucleated RBC % (auto) (0.0-0.2) /100WBC Sodium (135-145) mmol/L Potassium (3.3-5.1) mmol/L Chloride (96-108) mmol/L Carbon Dioxide (22-29) mmol/L Anion Gap (12-20) BUN (9-16) mg/dL Creatinine (0.5-1.4) mg/dL Estim Creat Clear Calc Estimated GFR Random Glucose (60-115) mg/dL Calcium (8.4-10.2) mg/dL Magnesium (1.6-2.6) mg/dL Total Bilirubin (0.0-1.0) mg/dL Direct Bilirubin (0.0-0.5) mg/dL AST (5-37) U/L ALT (0-40) U/L Alkaline Phosphatase (39-117) U/L Total Protein (6.5-8.0) g/dL Albumin (3.5-5.0) g/dL Urine Color Urine Appearance Urine pH (5.0-8.0) Ur Specific [place] (1.005-1.025) Urine Protein (NEG-TRACE) MG/DL Urine Glucose (UA) (NEG) MG/DL Urine Ketones (NEG) MG/DL Urine Blood (NEG) Urine Nitrite (NEG) Ur Leukocyte Esterase (NEG) Urine Opiates Screen (Not Detect) Ur Barbiturates Screen (Not Detect) Valproic Acid (50.0-100.0) mcg/mL Ur Phencyclidine Scrn (Not Detect) Ur Amphetamines Screen (Not Detect) U Benzodiazepines Scrn (Not Detect) Urine Cocaine Screen (Not Detect) U Marijuana (THC) Screen (Not Detect) Ethyl Alcohol < 10 mg/dL COVID-19 (JOAN) (Negative) COVID-19 Clin Com Discharge Plan Discharge Clinical Impression: Marijuana use Patient Disposition: Home, Self-Care Instructions: Medicinal Use of Cannabis (ED) Additional Instructions: Take all of your medications as directed. Follow up with your therapist and psychiatrist. Prescriptions: No Action olanzapine 10 mg tablet 1 tab PO BID RF: 0 divalproex 500 mg tablet extended release 24 hr 2 tab PO BID RF: 0 fluoxetine 20 mg capsule 1 cap PO DAILY RF: 0 olanzapine [Zyprexa] 20 mg tablet 1 tab PO BEDTIME RF: 0 Interventions: ED Discharge Assessment Last Done: 01/26/21 22:07 Discharge Date/Time: 01/26/21 22:22
[2021-01-26 19:59] LABS: Glucose Urine UA NEG (NEG); Leukocyte Esterase Urine NEG (NEG); Nitrite Urine NEG (NEG); Specific Gravity - Urine 1.025 (1.005-1.025); Urine Blood NEG (NEG); Urine Ketones 5 MG/DL (NEG); Urine Protein NEG (NEG-TRACE)
[2021-01-26 20:05] LABS: Appearance Urine CLEAR; Color Urine YELLOW
[2021-01-26 20:09] LABS: MANUAL DIFF FLAG NO
[2021-01-26 20:16] LABS: COVID-19 Test Negative (Negative)
[2021-01-26 20:18] LABS: Basophils Percent Auto 0.2 % (0-2); Eosinophils Percent Auto 0.2 % (0-4); Hematocrit 40.8 % (42-52); Hemoglobin 14.1 g/dl (14.0-18.0); Imm Gran Abs Auto 0.02 X10*3/uL (0.00-0.03); Imm Gran Pct Auto 0.3 % (0.0-0.4); Lymphocytes Absolute Auto 0.9 X10*3/uL (1.2-4.9); Mean Corpuscular HGB Conc 34.6 g/dl (31.0-36.0); Mean Corpuscular Hemoglobin 33.2 pg (27.0-33.0); Mean Platelet Volume 8.5 fL (9.4-12.4); Monocytes Absolute Auto 0.5 X10*3/uL (0.1-1.2); Monocytes Percent Auto 8.7 % (2-11); Neutrophils Absolute Auto 4.7 X10*3/uL (2.0-8.3); Neutrophils Percent Auto 75.6 % (45-73); Platelet Count 312 X10*3/uL (160-400); Red Blood Count 4.25 X10*6/uL (4.60-5.80); White Blood Count 6.2 X10*3/uL (4.8-10.8)
[2021-01-26 20:42] LABS: Ethanol < 10 mg/dL
[2021-01-26 20:43] LABS: Alanine Aminotransferase 31 U/L (0-40); Alkaline Phosphatase 57 U/L (39-117); Anion Gap 17 (12-20); Aspartate Amino Transferase 30 U/L (5-37); Bilirubin Direct 0.2 mg/dL (0.0-0.5); Bilirubin Total 0.5 mg/dL (0.0-1.0); Blood Urea Nitrogen 17 mg/dL (9-16); Calcium 10.1 mg/dL (8.4-10.2); Carbon Dioxide 25 mmol/L (22-29); Chloride 106 mmol/L (96-108); Creatinine Clr Calc Pharmacy 92.5; Estimated Glomerular Filt Rate > 60; Glucose Random 104 mg/dL (60-115); Potassium 4.7 mmol/L (3.3-5.1); Sodium 143 mmol/L (135-145); Total Protein 8.2 g/dL (6.5-8.0)
[2021-01-26 20:49] LABS: Amphetamine Screen Urine Not Detected (Not Detect); Barbiturates, Urine Not Detected (Not Detect); Benzodiazepines Screen Urine Not Detected (Not Detect); Cannabinoid Screen Urine POSITIVE (Not Detect); Cocaine Screen Urine Not Detected (Not Detect); Opiate Screen Urine Not Detected (Not Detect); Phencyclidine Screen Urine Not Detected (Not Detect)
[2021-01-26 21:01] LABS: Valproate 64.2 mcg/mL (50.0-100.0)
--- NOTE | 2021-01-26 21:27 | MHC.CARE ---
Pt arrived to ED reporting he smoked cannabis and will like to return back to [facility]. He reported he smoked one blunt today. He is feeling good and denies suicidal and homicidal ideation, plan or intent. Contacted home ([phone], Lita-program supervisor) and it was reported that pt is making this a habit however is able to return to the home once toxic screen is completed.
== END 2021-01-26 22:22 | disposition home or self-care (01) ==
PROVIDERS: Physician Assistant; Emergency Provider Emergency Medicine
DX: Z02.2 Encounter for examination for admission to residential institution (principal); F12.90 Cannabis use, unspecified, uncomplicated; F25.9 Schizoaffective disorder, unspecified; F41.9 Anxiety disorder, unspecified; Z79.899 Other long term (current) drug therapy; Z20.822 Contact with and (suspected) exposure to COVID-19
CPT/HCPCS: 36415; 80048; 80076; 80164; 80307; 81003; 82077; 83735; 85025; 87635; 99282; 99283

== ENCOUNTER 2021-01-29 18:18 | Emergency (ER) | payer MEDICARE, MEDICAID, SELFPAY ==
[2021-01-29 18:44] VITALS: BP 159/69; PULSE 125; RESP 28; TEMP 37.3; O2SAT 95; BMI 31.3
--- NOTE | 2021-01-29 19:45 | ED_ITS ---
HPI - Back Pain/Injury General Chief Complaint: Back Pain/Injury Stated Complaint: BACK PAIN Time Seen by Provider: 01/29/21 19:10 Source: patient Mode of arrival: ambulatory Limitations: no limitations History of Present Illness HPI Narrative: 30-year-old male with past medical history of schizoaffective disorder and substance abuse presents with lumbar back pain after playing basketball. Does not report any symptoms indicating cauda equina, did not report trauma or falls. He does not report any other symptoms at this time. MD elicited complaint: back pain and back injury Onset (ago): hour(s) Timing: constant Severity: mild Similar Symptoms Previously: Yes Quality: aching Location: lumbar spine Radiation: none Exacerbating factors: movement Relieving factors: none Context: playing sports Associated symptoms: denies other symptoms Work related injury: No Related Data Home Medications Medication Instructions Recorded Confirmed divalproex 2 tab PO BID 01/26/21 01/26/21 fluoxetine 1 cap PO DAILY 01/26/21 01/26/21 olanzapine 1 tab PO BID 01/26/21 01/26/21 olanzapine [Zyprexa] 1 tab PO BEDTIME 01/26/21 01/26/21 Allergies Allergy/AdvReac Type Severity Reaction Status Date / Time trazodone [Trazodone] Allergy Severe SWOLLEN Verified 01/26/21 19:03 TONGUE amoxicillin [Amoxicillin] Allergy Unknown UNKNOWN Verified 01/26/21 19:03 haloperidol [From HALDOL] Allergy Unknown UNKNOWN Verified 01/26/21 19:03 Amoxicillin Allergy Unknown Unknown Uncoded 12/30/20 20:21 Review of Systems Review of Systems: Constitutional: No Fever, No Chills ENT/Mouth: No Ear Pain, No Hoarseness, No sore throat Eyes: No Eye Pain, No Swelling, No Redness, No Foreign Body Cardiovascular: No Chest Pain, No SOB Respiratory: No Cough, No Dyspnea Gastrointestinal: No Nausea, No Vomiting, No Diarrhea, No abdominal Pain Genitourinary: No Dysuria, No Hematuria Musculoskeletal: positive lower back pain, No Myalgias, No Joint Swelling Skin: No Skin lacerations, No rash Neuro: No Weakness, No Numbness, No Paresthesias, No Loss of Consciousness, No Dizziness, No Headache Psych: No Anxiety/Panic, No Depression Heme/Lymph: no easy bruising, no Lymphadenopathy Endocrine: No Polyuria, No Polydipsia Yes all other systems are reviewed and are negative [facility] Past Medical History Attestation statement: The following information was validated with the patient. Source: old records reviewed Medical History Anxiety Schizoaffective disorder Substance abuse Family History Family History Other Family history non-contributory Social History Social History Alcohol intake: never Substance Use Type: Opiates Advance Directives: No Advance Directives Information Provided: Yes Physical Exam Vital Signs: Vital Signs: Last Vital Signs Temp 99.0 F 01/29/21 20:02 Pulse 104 H 01/29/21 20:02 Resp 20 01/29/21 20:02 BP 141/67 H 01/29/21 20:02 Pulse Ox 97 01/29/21 20:02 Body Mass Index 31.3 Appearance: Alert. Oriented X3. No acute distress. Eyes: Pupils equal, round and reactive to light. ENT: Pharynx normal. Neck: Normal inspection. Neck supple. CVS: Normal heart rate and rhythm. Pulses normal. Respiratory: No respiratory distress. Breath sounds normal. Abdomen: Soft and nontender. Skin: Skin warm and dry. Normal skin color. Normal skin turgor. Extremities: No lower extremity edema. Neuro: No motor deficit. No sensory deficit. Course Course Course Narrative: 30-year-old male well known to this facility presents with lower back pain after playing basketball. Does not report any trauma. Afebrile, no focal neural deficits, cranial nerves 2-12 intact. No vertebral tenderness or step-offs noted. No indication of cauda equina. Plan of care is for Toradol and muscle relaxer. Patient lives in a longterm, longterm with called by RN, patient has been leaving the longterm on a regular basis, has been accepted back to the longterm as long as he has a ride that can bring him from this facility to theirs. MDM - Back Pain/Injury Differential Diagnosis Differential diagnosis: Likely lumbar radiculopathy and strain of lumbar region Medical Records Attestation: I reviewed the patient's medical records. Lab Data Labs: Lab Results 01/29/21 Range/Units 21:38 Urine Opiates Screen POSITIVE H (Not Detect) Ur Barbiturates Screen Not Detected (Not Detect) Ur Phencyclidine Scrn Not Detected (Not Detect) Ur Amphetamines Screen Not Detected (Not Detect) U Benzodiazepines Scrn Not Detected (Not Detect) Urine Cocaine Screen Not Detected (Not Detect) U Marijuana (THC) Screen POSITIVE H (Not Detect) Discharge Plan Discharge Clinical Impression: Strain of lumbar region Qualifiers: Encounter type: initial encounter Qualified Code(s): S39.012A - Strain of muscle, fascia and tendon of lower back, initial encounter Patient Disposition: Home, Self-Care Instructions: Low Back Strain (ED) Additional Instructions: You were evaluated for lumbar strain after playing basketball. Please take Motrin as needed pain management. Thank you for choosing this emergency department for evaluation. Please follow-up with primary care physician as needed. Return to the emergency department for any new, concerning, or worsening symptoms. Prescriptions: No Action olanzapine 10 mg tablet 1 tab PO BID RF: 0 divalproex 500 mg tablet extended release 24 hr 2 tab PO BID RF: 0 fluoxetine 20 mg capsule 1 cap PO DAILY RF: 0 olanzapine [Zyprexa] 20 mg tablet 1 tab PO BEDTIME RF: 0 Interventions: ED Discharge Assessment Last Done: 01/29/21 22:44 Discharge Date/Time: 01/29/21 22:45
[2021-01-29 20:02] VITALS: BP 141/67; PULSE 104; RESP 20; TEMP 37.2; O2SAT 97
--- NOTE | 2021-01-29 21:22 | PC.NURSE ---
THIS RN SPOKE W/ STAFF AT [facility], PT ALLOWED BACK BUT NEEDS TOX SCREEN FIRST.
[2021-01-29] MEDS: Cyclobenzaprine HCl 10 MG TABLET PO (21:34)
[2021-01-29] MEDS: Ketorolac Tromethamine 60 MG/2 ML VIAL IM (21:34)
[2021-01-29 22:04] LABS: Amphetamine Screen Urine Not Detected (Not Detect); Barbiturates, Urine Not Detected (Not Detect); Benzodiazepines Screen Urine Not Detected (Not Detect); Cannabinoid Screen Urine POSITIVE (Not Detect); Cocaine Screen Urine Not Detected (Not Detect); Opiate Screen Urine POSITIVE (Not Detect); Phencyclidine Screen Urine Not Detected (Not Detect)
== END 2021-01-29 22:45 | disposition home or self-care (01) ==
PROVIDERS: Nurse Practitioner Family; Emergency Provider Emergency Medicine; PCP Internal Medicine
DX: S39.012A Strain of muscle, fascia and tendon of lower back, initial encounter (principal); X58.XXXA Exposure to other specified factors, initial encounter; Y93.67 Activity, basketball; Y92.310 Basketball court as the place of occurrence of the external cause; Y99.9 Unspecified external cause status; F11.10 Opioid abuse, uncomplicated; F25.9 Schizoaffective disorder, unspecified; Z79.899 Other long term (current) drug therapy
CPT/HCPCS: 80307; 96372; 99284; J1885

== ENCOUNTER 2021-01-31 19:31 | Emergency (ER) | payer MEDICARE, MEDICAID, SELFPAY ==
[2021-01-31 19:33] VITALS: BP 154/78; PULSE 115; RESP 18; TEMP 36.4; O2SAT 95; BMI 32.4
[2021-01-31 20:58] LABS: COVID-19 Test Negative (Negative); IDNOW Serial# 9DD0AD1C
--- NOTE | 2021-01-31 22:54 | ED_ITS ---
HPI - Back Pain/Injury General Chief Complaint: Back Pain/Injury Stated Complaint: Right Flank Pain Time Seen by Provider: 01/31/21 22:53 Source: patient and EMS Mode of arrival: EMS Limitations: no limitations History of Present Illness HPI Narrative: 30 y/o male with history of schizoaffective disorder, substance abuse, hard of hearing & recent lumbar strain while playing basketball presents to the ER for evaluation of ongoing right sided middle and lower back pain as well as clearance to go back to his retirement. He reports leaving today because he was lonely, wanted to go play basketball with his friends and see the city. He reports his back pain is overall improving. He played basketball today with no problem. He has no numbness, weakness, tingling or incontinence. MD elicited complaint: back pain Pertinent past history: prior back pain Onset (ago): day(s) Timing: intermittent Severity: mild Similar Symptoms Previously: Yes Quality: aching Location: right flank, right lower back and right upper back Radiation: none Exacerbating factors: movement Relieving factors: sitting upright Context: playing sports Associated symptoms: denies other symptoms Work related injury: No Related Data Home Medications Medication Instructions Recorded Confirmed divalproex 2 tab PO BID 01/26/21 01/26/21 fluoxetine 1 cap PO DAILY 01/26/21 01/26/21 olanzapine 1 tab PO BID 01/26/21 01/26/21 olanzapine [Zyprexa] 1 tab PO BEDTIME 01/26/21 01/26/21 Allergies Allergy/AdvReac Type Severity Reaction Status Date / Time trazodone [Trazodone] Allergy Severe SWOLLEN Verified 01/26/21 19:03 TONGUE amoxicillin [Amoxicillin] Allergy Unknown UNKNOWN Verified 01/26/21 19:03 haloperidol [From HALDOL] Allergy Unknown UNKNOWN Verified 01/26/21 19:03 Amoxicillin Allergy Unknown Unknown Uncoded 12/30/20 20:21 Review of Systems Review of Systems: Constitutional: No Fever, No Chills Cardiovascular: No Chest Pain, No SOB Respiratory: No Cough, No Sputum Gastrointestinal: No Nausea, No Vomiting, No Diarrhea, No abdominal Pain Genitourinary: No urinary incontinence Musculoskeletal: No joint pain, + Myalgias Skin: No Skin Lesions, No rash Neuro: No Weakness, No Numbness Psych: + Anxiety/Panic, No Depression Heme/Lymph: No Bruising, No Lymphadenopathy PMFSH Past Medical History Attestation statement: The following information was validated with the patient. Medical History Anxiety Schizoaffective disorder Substance abuse Family History Family History Other Family history non-contributory Social History Social History Alcohol intake: never Substance Use Type: Opiates Advance Directives: No Advance Directives Information Provided: No Physical Exam Vital Signs: Vital Signs: Last Vital Signs Temp 97.6 F 01/31/21 19:33 Pulse 115 H 01/31/21 19:33 Resp 18 01/31/21 19:33 BP 154/78 H 01/31/21 19:33 Pulse Ox 95 01/31/21 19:33 Body Mass Index 32.4 Appearance: Alert. Oriented X3. No acute distress. Eyes: Pupils equal, round and reactive to light. ENT: Pharynx normal. Neck: Normal inspection. Neck supple. CVS: Normal heart rate and rhythm. Pulses normal. Respiratory: No respiratory distress. Breath sounds normal. Abdomen: Soft and nontender. +BS x4 Skin: Skin warm and dry. Normal skin color. Normal skin turgor. No rashes. Extremities: No lower extremity edema. Neuro: Oriented X 3. No motor deficit. No sensory deficit. Course Course Course Narrative: 30 y/o male presenting with improving right back pain and medical clearance. Exam is benign. Will get Utox and COVID swab per [facility] request. Reevaluation(s) Reevaluation #1: COVID negative. Utox positive for opiates and THC. Detox encouraged. He is stable, ambulating around the ER. Stable for d/c back to retirement. MDM - Back Pain/Injury Lab Data Labs: Lab Results 01/31/21 01/31/21 Range/Units 20:37 23:37 Urine Opiates Screen POSITIVE H (Not Detect) Ur Barbiturates Screen Not Detected (Not Detect) Ur Phencyclidine Scrn Not Detected (Not Detect) Ur Amphetamines Screen Not Detected (Not Detect) U Benzodiazepines Scrn Not Detected (Not Detect) Urine Cocaine Screen Not Detected (Not Detect) U Marijuana (THC) Screen POSITIVE H (Not Detect) COVID-19 (JOAN) Negative (Negative) COVID-19 Clin Com See Note Discharge Plan Discharge Clinical Impression: Substance abuse Patient Disposition: Xfer Other Transfer Details: [facility] Instructions: Polysubstance Abuse (ED) Additional Instructions: You are negative for COVID-19. Your urine test was positive for opiates and marijuana. Recommend detox from drugs. Return to your retirement and take all of your medications as prescribed. Prescriptions: No Action olanzapine 10 mg tablet 1 tab PO BID RF: 0 divalproex 500 mg tablet extended release 24 hr 2 tab PO BID RF: 0 fluoxetine 20 mg capsule 1 cap PO DAILY RF: 0 olanzapine [Zyprexa] 20 mg tablet 1 tab PO BEDTIME RF: 0 Interventions: LWBS Worksheet Last Done: 01/31/21 19:53
[2021-02-01 00:28] LABS: Amphetamine Screen Urine Not Detected (Not Detect); Barbiturates, Urine Not Detected (Not Detect); Benzodiazepines Screen Urine Not Detected (Not Detect); Cannabinoid Screen Urine POSITIVE (Not Detect); Cocaine Screen Urine Not Detected (Not Detect); Opiate Screen Urine POSITIVE (Not Detect); Phencyclidine Screen Urine Not Detected (Not Detect)
== END 2021-02-01 00:38 | disposition home or self-care (01) ==
PROVIDERS: Emergency Medicine; Physician Assistant; Emergency Provider Emergency Medicine
DX: F11.10 Opioid abuse, uncomplicated (principal); F12.10 Cannabis abuse, uncomplicated; Z20.822 Contact with and (suspected) exposure to COVID-19; F41.9 Anxiety disorder, unspecified; F25.9 Schizoaffective disorder, unspecified; Z79.899 Other long term (current) drug therapy
CPT/HCPCS: 36415; 80307; 87635; 99283

== ENCOUNTER 2021-02-01 08:53 | Emergency (ER) | payer MEDICARE, MEDICAID, SELFPAY ==
[2021-02-01 09:14] VITALS: BP 158/90; PULSE 110; PULSE 111; RESP 14; TEMP 37.2; O2SAT 94; BMI 32.5
[2021-02-01 09:51] LABS: MANUAL DIFF FLAG NO
[2021-02-01 09:54] LABS: Basophils Percent Auto 0.1 % (0-2); Eosinophils Percent Auto 0.2 % (0-4); Hematocrit 37.1 % (42-52); Hemoglobin 12.7 g/dl (14.0-18.0); Imm Gran Abs Auto 0.02 X10*3/uL (0.00-0.03); Imm Gran Pct Auto 0.2 % (0.0-0.4); Lymphocytes Absolute Auto 1.1 X10*3/uL (1.2-4.9); Lymphocytes Percent Auto 12.3 % (20-40); Mean Corpuscular HGB Conc 34.2 g/dl (31.0-36.0); Mean Corpuscular Volume 96.4 fL (80-98); Mean Platelet Volume 8.4 fL (9.4-12.4); Monocytes Absolute Auto 0.8 X10*3/uL (0.1-1.2); Monocytes Percent Auto 9.2 % (2-11); Neutrophils Absolute Auto 6.8 X10*3/uL (2.0-8.3); Platelet Count 245 X10*3/uL (160-400); Red Blood Count 3.85 X10*6/uL (4.60-5.80); Red Cell Distribution Width 11.9 % (11.0-16.0); White Blood Count 8.7 X10*3/uL (4.8-10.8)
[2021-02-01 10:16] LABS: Ethanol < 10 mg/dL
[2021-02-01 10:18] LABS: Anion Gap 12 (12-20); Blood Urea Nitrogen 17 mg/dL (9-16); Calcium 8.9 mg/dL (8.4-10.2); Carbon Dioxide 28 mmol/L (22-29); Chloride 98 mmol/L (96-108); Creatinine Clr Calc Pharmacy 137.1; Estimated Glomerular Filt Rate > 60; Glucose Random 100 mg/dL (60-115); Potassium 4.4 mmol/L (3.3-5.1); Sodium 134 mmol/L (135-145)
[2021-02-01 10:20] LABS: Amphetamine Screen Urine Not Detected (Not Detect); Barbiturates, Urine Not Detected (Not Detect); Benzodiazepines Screen Urine Not Detected (Not Detect); Cannabinoid Screen Urine POSITIVE (Not Detect); Cocaine Screen Urine Not Detected (Not Detect); Opiate Screen Urine POSITIVE (Not Detect); Phencyclidine Screen Urine Not Detected (Not Detect)
--- NOTE | 2021-02-01 10:48 | ED_ITS ---
HPI - General Adult General Chief complaint: General Medical Stated complaint: MED CLEARANCE FOR DETOX/REHAB Time Seen by Provider: 02/01/21 09:27 Source: patient Mode of arrival: ambulatory Limitations: no limitations History of Present Illness HPI narrative: Patient sent from detox rehab for medical evaluation. Escape from rehab yesterday and was later found. Patient denies any trauma. Patient's admits to drinking alcohol, smoke week, and a bag of heroin last night. Related Data Home Medications Medication Instructions Recorded Confirmed divalproex 2 tab PO BID 01/26/21 01/26/21 fluoxetine 1 cap PO DAILY 01/26/21 01/26/21 olanzapine 1 tab PO BID 01/26/21 01/26/21 olanzapine [Zyprexa] 1 tab PO BEDTIME 01/26/21 01/26/21 Allergies Allergy/AdvReac Type Severity Reaction Status Date / Time trazodone [Trazodone] Allergy Severe SWOLLEN Verified 01/26/21 19:03 TONGUE amoxicillin [Amoxicillin] Allergy Unknown UNKNOWN Verified 01/26/21 19:03 haloperidol [From HALDOL] Allergy Unknown UNKNOWN Verified 01/26/21 19:03 Amoxicillin Allergy Unknown Unknown Uncoded 12/30/20 20:21 Review of Systems Constitutional: Constitutional: Reports as per HPI and Reports no additional constitutional complaints Eyes: Eyes: Reports as per HPI and Reports no additional eye complaints ENT: Reports system reviewed and no additional complaints, except as documented and Reports as per HPI Cardiovascular: Cardiovascular: Reports as per HPI and Reports no additional cardiovascular complaints Respiratory: Respiratory: Reports as per HPI and Reports no additional respiratory complaints Gastrointestinal: Gastrointestinal: Reports as per HPI and Reports no additional gastrointestinal complaints Genitourinary: Genitourinary: Reports no additional male genitourinary complaints and Reports as per HPI Musculoskeletal: Musculoskeletal: Reports no additional musculoskeletal complaints and Reports as per HPI Neurologic: Reports system reviewed and no additional complaints, except as documented and Reports as per HPI Psychiatric: Psychiatric: Reports no additional psychiatric complaints and Reports as per HPI [facility] Past Medical History Medical History Anxiety Schizoaffective disorder Substance abuse Family History Family History Other Family history non-contributory Social History Social History Alcohol intake: never Substance Use Type: Opiates Advance Directives: No Advance Directives Information Provided: No Physical Exam Vital Signs: Vital Signs: Last Vital Signs Temp 99.0 F 02/01/21 09:14 Pulse 101 H 02/01/21 11:04 Resp 16 02/01/21 11:04 BP 158/80 H 02/01/21 11:04 Pulse Ox 97 02/01/21 11:04 Body Mass Index 32.5 Const: Other: Patient is 95% deaf General: cooperative, healthy appearing, comfortable, no acute distress, well developed, alert and awake Orientation/consciousness: patient oriented x3 HENMT: Head: Yes normal to inspection, Yes No palpable skull fracture present, Yes normocephalic, Yes atraumatic, No abrasion, No Acrocyanosis present, No García's sign, No contusion, No cranial bruits, No hematoma, No laceration, No occipital foramen tenderness, No palpable skull fracture, No raccoon eyes, No scalp lesion, No scalp tenderness, No Temporal artery tenderness present and No periorbital ecchymosis Eyes: General: appearance normal, both eyes and all related structures Neck: Neck: Yes normal visual inspection, Yes full ROM, Yes no lymphadenopathy, Yes no meningeal signs, Yes trachea midline, Yes supple and No tender Chest: Chest palpation & inspection: normal inspection of the chest and normal palpation of entire chest wall Resp: Effort & Inspection: normal respiratory effort and able to speak in complete sentences Auscultation: clear to auscultation bilaterally Cardio: Jugular venous distension: no JVD Heart sounds: S1 normal heart sound present and S2 normal heart sound present GI: Inspection: Yes normal to inspection and No abdominal wall ecchymosis Palpation (GI): Soft to palpation, not firm, nontender, no guarding and not rigid : General: No CVA tenderness and Yes no CVA tenderness Back/Spine/Pelvis: Back: no CVA tenderness, No CVA tenderness and No back tenderness Skin: General skin exam: no rashes or lesions noted and elasticity normal Neuro: General: patient oriented x3, gait normal, no meningeal signs and CN's II-XI intact bilaterally Cranial nerves: Yes CN's II-XII intact bilaterally Extrem: General: Yes normal to inspection and Yes full ROM Psych: Appearance: grossly normal, well kempt and not disheveled Course Course Course Narrative: Patient will have basic labs ordered including alcohol and U tox Reevaluation(s) Reevaluation #1: U tox shows her opiates and marijuana. CBC and BNP normal. Patient is safe discharge Time: 10:52 Medical Decision Making MDM Narrative Medical decision making narrative: Medical clearance Lab Data Result diagrams: 02/01/21 09:46 02/01/21 09:45 Labs: Lab Results 02/01/21 02/01/21 02/01/21 Range/Units 09:45 09:45 09:46 WBC (4.8-10.8) X10*3/uL RBC (4.60-5.80) X10*6/uL Hgb (14.0-18.0) g/dl Hct (42-52) % MCV (80-98) fL MCH (27.0-33.0) pg MCHC (31.0-36.0) g/dl RDW (11.0-16.0) % Plt Count (160-400) X10*3/uL MPV (9.4-12.4) fL Immature Gran % (Auto) (0.0-0.4) % Neut % (Auto) (45-73) % Lymph % (Auto) (20-40) % Montgomery % (Auto) (2-11) % Eos % (Auto) (0-4) % Baso % (Auto) (0-2) % Lymph # (Auto) (1.2-4.9) X10*3/uL Montgomery # (Auto) (0.1-1.2) X10*3/uL Eos # (Auto) (0.0-0.4) X10*3/uL Baso # (Auto) (0.0-0.2) X10*3/uL Abs Immat Gran (auto) (0.00-0.03) X10*3/uL Absolute Neuts (auto) (2.0-8.3) X10*3/uL Absolute Nucleated RBC (0.0-0.012) X10*3/uL Nucleated RBC % (auto) (0.0-0.2) /100WBC Sodium 134 L (135-145) mmol/L Potassium 4.4 (3.3-5.1) mmol/L Chloride 98 (96-108) mmol/L Carbon Dioxide 28 (22-29) mmol/L Anion Gap 12 (12-20) BUN 17 H (9-16) mg/dL Creatinine 0.87 (0.5-1.4) mg/dL Estim Creat Clear Calc 137.1 Estimated GFR > 60 Random Glucose 100 (60-115) mg/dL Calcium 8.9 D (8.4-10.2) mg/dL Urine Opiates Screen POSITIVE H (Not Detect) Ur Barbiturates Screen Not Detected (Not Detect) Ur Phencyclidine Scrn Not Detected (Not Detect) Ur Amphetamines Screen Not Detected (Not Detect) U Benzodiazepines Scrn Not Detected (Not Detect) Urine Cocaine Screen Not Detected (Not Detect) U Marijuana (THC) Screen POSITIVE H (Not Detect) Ethyl Alcohol < 10 mg/dL 02/01/21 Range/Units 09:46 WBC 8.7 (4.8-10.8) X10*3/uL RBC 3.85 L (4.60-5.80) X10*6/uL Hgb 12.7 L (14.0-18.0) g/dl Hct 37.1 L (42-52) % MCV 96.4 (80-98) fL MCH 33.0 (27.0-33.0) pg MCHC 34.2 (31.0-36.0) g/dl RDW 11.9 (11.0-16.0) % Plt Count 245 (160-400) X10*3/uL MPV 8.4 L (9.4-12.4) fL Immature Gran % (Auto) 0.2 (0.0-0.4) % Neut % (Auto) 78.0 H (45-73) % Lymph % (Auto) 12.3 L (20-40) % Montgomery % (Auto) 9.2 (2-11) % Eos % (Auto) 0.2 (0-4) % Baso % (Auto) 0.1 (0-2) % Lymph # (Auto) 1.1 L (1.2-4.9) X10*3/uL Montgomery # (Auto) 0.8 (0.1-1.2) X10*3/uL Eos # (Auto) 0.0 (0.0-0.4) X10*3/uL Baso # (Auto) 0.0 (0.0-0.2) X10*3/uL Abs Immat Gran (auto) 0.02 (0.00-0.03) X10*3/uL Absolute Neuts (auto) 6.8 (2.0-8.3) X10*3/uL Absolute Nucleated RBC 0.000 (0.0-0.012) X10*3/uL Nucleated RBC % (auto) 0.0 (0.0-0.2) /100WBC Sodium (135-145) mmol/L Potassium (3.3-5.1) mmol/L Chloride (96-108) mmol/L Carbon Dioxide (22-29) mmol/L Anion Gap (12-20) BUN (9-16) mg/dL Creatinine (0.5-1.4) mg/dL Estim Creat Clear Calc Estimated GFR Random Glucose (60-115) mg/dL Calcium (8.4-10.2) mg/dL Urine Opiates Screen (Not Detect) Ur Barbiturates Screen (Not Detect) Ur Phencyclidine Scrn (Not Detect) Ur Amphetamines Screen (Not Detect) U Benzodiazepines Scrn (Not Detect) Urine Cocaine Screen (Not Detect) U Marijuana (THC) Screen (Not Detect) Ethyl Alcohol mg/dL Discharge Plan Discharge Clinical Impression: Substance abuse Patient Disposition: Home, Self-Care Instructions: Polysubstance Abuse (ED) Additional Instructions: Return to the ED for any concerning symptoms. The blood work came back normal. Please follow-up with PCP Prescriptions: No Action olanzapine 10 mg tablet 1 tab PO BID RF: 0 divalproex 500 mg tablet extended release 24 hr 2 tab PO BID RF: 0 fluoxetine 20 mg capsule 1 cap PO DAILY RF: 0 olanzapine [Zyprexa] 20 mg tablet 1 tab PO BEDTIME RF: 0 Print Language: Sinhala
[2021-02-01 11:04] VITALS: BP 158/80; PULSE 101; RESP 16; O2SAT 97
--- NOTE | 2021-02-01 13:00 | PC.NURSE ---
CALL TO [facility]. NO ANSWER. 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 PT CLEARED TO RETURN TO PROGRAM. PROVIDER DOES NOT FEEL A CRISIS EVAL IS WARRANTED
== END 2021-02-01 13:59 | disposition home or self-care (01) ==
PROVIDERS: Physician Assistant; Emergency Provider Emergency Medicine Emergency Medical Services; PCP Internal Medicine
DX: Z02.2 Encounter for examination for admission to residential institution (principal); F19.10 Other psychoactive substance abuse, uncomplicated; F25.9 Schizoaffective disorder, unspecified; F41.9 Anxiety disorder, unspecified; F17.210 Nicotine dependence, cigarettes, uncomplicated; F12.90 Cannabis use, unspecified, uncomplicated; Z79.899 Other long term (current) drug therapy
CPT/HCPCS: 36415; 80048; 80307; 82077; 85025; 99283

== ENCOUNTER 2021-02-04 15:32 | Inpatient (IN) | payer MEDICARE, MEDICAID, SELFPAY ==
[2021-02-04 15:52] VITALS: BP 155/77; PULSE 130; RESP 16; TEMP 36.7; O2SAT 100; BMI 35.5
--- NOTE | 2021-02-04 16:18 | ED.PSYCH ---
HPI - Psych General Chief Complaint: Psychiatric Symptoms Stated Complaint: SI Time Seen by Provider: 02/04/21 16:11 Source: patient Mode of arrival: ambulatory Limitations: no limitations History of Present Illness HPI Narrative: Patient comes emergency room complaining of suicidal ideation. Patient states that he uses heroin, lifted. Patient states that he has family. Patient has no specific plan. Patient requesting to see behavioral health network Related Data Home Medications Medication Instructions Recorded Confirmed divalproex 500 mg tablet,extended 2 tab PO BID 01/26/21 01/26/21 release 24 hr fluoxetine 20 mg capsule 1 cap PO DAILY 01/26/21 01/26/21 olanzapine 10 mg tablet 1 tab PO BID 01/26/21 01/26/21 olanzapine 20 mg tablet (Zyprexa) 1 tab PO BEDTIME 01/26/21 01/26/21 Allergies Allergy/AdvReac Type Severity Reaction Status Date / Time trazodone [Trazodone] Allergy Severe SWOLLEN Verified 01/26/21 19:03 TONGUE amoxicillin [Amoxicillin] Allergy Unknown UNKNOWN Verified 01/26/21 19:03 haloperidol [From HALDOL] Allergy Unknown UNKNOWN Verified 01/26/21 19:03 Amoxicillin Allergy Unknown Unknown Uncoded 12/30/20 20:21 Review of Systems Review of Systems: Constitutional : No Weight loss, No Fever, No Chills, No Night Sweats, No Fatigue, No Malaise ENT/Mouth : No Hearing loss, No Ear Pain, No Nasal Congestion, No Sinus Pain, No Hoarseness, No sore throat, No Rhinorrhea, No Swallowing Difficulty Eyes: No Eye Pain, No Swelling, No Redness, No Foreign Body, No Discharge, No Vision Changes Cardiovascular : No Chest Pain, No SOB, No Dyspnea on Exertion, No Orthopnea, No Edema, No Palpitations Respiratory : No Cough, No Sputum, No Wheezing, No Smoke Exposure, No Dyspnea Gastrointestinal : No Nausea, No Vomiting, No Diarrhea, No Constipation, No abdominal Pain, No Hematochezia, No Melena Genitourinary : no irregular bleeding, No Dysuria, No Urinary Frequency, No Hematuria, No Urinary Incontinence, No Urgency, No Flank Pain, No Urinary Flow Changes, No Hesitancy Musculoskeletal : No joint pain, No Myalgias, No Joint Swelling Skin : No Skin Lesions, No rash Neuro : No Weakness, No Numbness, No Paresthesias, No Loss of Consciousness, No Dizziness, No Headache Psych : Complaining of anxiety, depression, vague suicidal ideation, no homicidal ideation Heme/Lymph: No Bruising, No Bleeding,No Lymphadenopathy Endocrine : No Polyuria, No Polydipsia, No Temperature Intolerance [facility] Past Medical History Medical History Anxiety Schizoaffective disorder Substance abuse Family History Family History Other Family history non-contributory Social History Social History Alcohol intake: never Substance Use Type: Opiates Advance Directives: No Advance Directives Information Provided: Yes Physical Exam Vital Signs: Vital Signs: Last Vital Signs Temp 98.0 F 02/04/21 15:52 Pulse 130 H 02/04/21 15:52 Resp 16 02/04/21 15:52 BP 155/77 H 02/04/21 15:52 Pulse Ox 100 02/04/21 15:52 Body Mass Index 35.5 Const: Other: Appearance: Alert. Oriented X3. No acute distress. Eyes: Pupils equal, round and reactive to light. ENT: Pharynx normal. Neck: Normal inspection. Neck supple. No lymph nodes noted. No crepitus CVS: Normal heart rate and rhythm. Pulses normal. Normal S1 and S2 Respiratory: No respiratory distress. Breath sounds normal. No Wheezing. No rales Abdomen: Soft and nontender. No rigidity. No distention. good BS x4 Skin: Skin warm and dry. Multiple healing eschars and face Extremities: No lower extremity edema. No Lacerations. No Rash Neuro: Oriented X 3. No motor deficit. No sensory deficit. Moving all extermities. No slurred speech. Course Course Course Narrative: Urine for drugs of abuse pending. [facility] evaluation pending Discharge Plan Discharge Clinical Impression: Substance abuse, Suicidal ideation Prescriptions: No Action olanzapine 10 mg tablet 1 tab PO BID RF: 0 divalproex 500 mg tablet extended release 24 hr 2 tab PO BID RF: 0 fluoxetine 20 mg capsule 1 cap PO DAILY RF: 0 olanzapine [Zyprexa] 20 mg tablet 1 tab PO BEDTIME RF: 0
--- NOTE | 2021-02-04 17:01 | PC.NURSE ---
pt in hallway stretcher, somewhat disruptive when awake, asking for medications and the location of his hearing aid. Pt also yelling, laughing and putting his feet up on the wall. HE has sitter at bedside. He states he is not safe at home, wants to hurt himself because he misses his family. Pt states he used drugs today, states he smokes 2 marijuana cigarettes and also used one bag of heroin. Will continue to monitor
[2021-02-04 18:24] LABS: Appearance Urine CLEAR; Color Urine YELLOW; Glucose Urine UA NEG (NEG); Leukocyte Esterase Urine NEG (NEG); Nitrite Urine NEG (NEG); Specific Gravity - Urine 1.025 (1.005-1.025); Urine Blood NEG (NEG); Urine Ketones 5 MG/DL (NEG); Urine Protein NEG (NEG-TRACE)
[2021-02-04 18:55] LABS: Amphetamine Screen Urine Not Detected (Not Detect); Barbiturates, Urine Not Detected (Not Detect); Benzodiazepines Screen Urine Not Detected (Not Detect); Cannabinoid Screen Urine POSITIVE (Not Detect); Cocaine Screen Urine Not Detected (Not Detect); Opiate Screen Urine POSITIVE (Not Detect); Phencyclidine Screen Urine Not Detected (Not Detect)
--- NOTE | 2021-02-04 18:55 | MHC.RECOVSUP ---
Recovery Support o Current location: 4 o Identified substance use concern: OPIOID <del>-</del> <del>Overdose</del> <del>-</del> <del>Withdrawal</del> <del>-</del> <del>Seeking</del> <del>ATS</del> <del>(detox)</del> <del>-</del> <del>Support</del> ? Intervention: <del>o</del> <del>ATS</del> <del>bed</del> <del>search</del> <del>started/completed/in</del> <del>process</del> <del>o</del> <del>MAT</del> <del>started</del> <del>or</del> <del>to</del> <del>be</del> <del>started</del> <del>o</del> <del>Community</del> <del>resources</del> <del>provided</del> <del>o</del> <del>Harm</del> <del>reduction</del> <del>discussion</del> ? Plan: <del>o</del> <del>Referral</del> <del>to</del> <del>[facility]</del> <del>o</del> <del>Bed</del> <del>search</del> <del>in</del> <del>progress</del> <del>to</del> <del>o</del> <del>Follow</del> <del>up</del> <del>tomorrow</del> o Patient awaiting crisis evaluation <del>o</del> <del>Patient</del> <del>to</del> <del>follow</del> <del>up</del> <del>with</del> <del>[facility]</del> <del>after</del> <del>discharge</del> ? Additional information: I was able to speak with Kyler and he is currently waiting on [facility] to be evaluated. At the moment, I was not able to talk to him about recovery or have a meaningful conversation with him about recovery because of the higher level of care that he needs at the moment. Coordinated with the care team and briefly explained my conversation with Kyler. He also stated that he can not return to his residential program ([facility]) because he has left 7 times in a week. Pt also stated that he misses his family and that when he thinks of them he gets SI thoughts and then that leads him to using heroin.
[2021-02-04 19:31] LABS: COVID-19 Test Negative (Negative); IDNOW Serial# 08D9AD1C
[2021-02-04] MEDS: LORazepam 1 MG TABLET PO (21:11)
[2021-02-04] MEDS: OLANZapine 10 MG TABLET PO (21:12)
[2021-02-04 22:41] VITALS: BP 138/65; PULSE 82; RESP 18; TEMP 36.3
--- NOTE | 2021-02-04 22:55 | PC.NURSE ---
Pt is a 30 year old male who presents to from [facility] at approx 22:00 on a cv status. Pt is covid- Utox + for THC and opiates. Pt has a PCP and a therapist. Pt resides in a prison ([facility]). Pt has an increase in depression, anxiety and SI with plans. Pt has been recently using heroin and THC to self mediate. Pt is diagnosed with unspecified bipolar and MDD. Pt denied trauma history. Pt denied SI/HI/AVH during admit. Pt wearing hearing aids. Dr Rodriguez called for orders and notified of admission. Stable mood. Start treatment plan and monitor for safety.
[2021-02-05 04:50] VITALS: BP 103/58; PULSE 88; RESP 18; TEMP 35.9; O2SAT 97
[2021-02-05] MEDS: FLUoxetine HCl 20 MG CAPSULE PO (11:23)
[2021-02-05] MEDS: OLANZapine 10 MG TABLET PO ×2 (11:23→21:13)
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
[2021-02-05 18:00] VITALS: BP 126/68; PULSE 90; RESP 16; TEMP 36.1; O2SAT 98
[2021-02-05] MEDS: hydrOXYzine HCL 25 MG TABLET PO (21:13)
[2021-02-05] MEDS: Divalproex Sodium ER 500 MG TAB.ER.24H 1000 MG PO (21:13)
[2021-02-06] MEDS: OLANZapine 10 MG TABLET PO ×2 (08:13→20:39)
[2021-02-06] MEDS: FLUoxetine HCl 20 MG CAPSULE PO (08:13)
[2021-02-06 08:15] VITALS: BP 131/63; PULSE 91; RESP 16; TEMP 36.4; O2SAT 98
[2021-02-06] MEDS: Nicotine Polacrilex 2 MG GUM BUCCAL (16:23)
--- NOTE | 2021-02-06 16:44 | HO.PSYCHPN ---
Subjective Subjective Date of Service: 02/06/21 Reason For Visit: SI Subjective Notes: Conditional Voluntary Interim History: Kyler reports that he feels better He does not want his medication changed further and is expressing a desire to go home Medication Compliance: Yes Side effects from medications: No Attending Groups: No Review of Systems Acute medical concerns: No Medical Review of Systems: unchanged Review of Systems Review of Systems Constitutional : No Weight loss, No Fever, No Chills, No Night Sweats, No Fatigue, No Malaise ENT/Mouth : No Hearing loss, No Ear Pain, No Nasal Congestion, No Sinus Pain, No Hoarseness, No sore throat, No Rhinorrhea, No Swallowing Difficulty Eyes: No Eye Pain, No Swelling, No Redness, No Foreign Body, No Discharge, No Vision Changes Cardiovascular : No Chest Pain, No SOB, No Dyspnea on Exertion, No Orthopnea, No Edema, No Palpitations Respiratory : No Cough, No Sputum, No Wheezing, No Smoke Exposure, No Dyspnea Gastrointestinal : No Nausea, No Vomiting, No Diarrhea, No Constipation, No abdominal Pain, No Hematochezia, No Melena Genitourinary : no irregular bleeding, No Dysuria, No Urinary Frequency, No Hematuria, No Urinary Incontinence, No Urgency, No Flank Pain, No Urinary Flow Changes, No Hesitancy Musculoskeletal : No joint pain, No Myalgias, No Joint Swelling Skin : No Skin Lesions, No rash Neuro : No Weakness, No Numbness, No Paresthesias, No Loss of Consciousness, No Dizziness, No Headache Psych : Complaining of anxiety, depression, vague suicidal ideation, no homicidal ideation Heme/Lymph: No Bruising, No Bleeding,No Lymphadenopathy Endocrine : No Polyuria, No Polydipsia, No Temperature Intolerance Psychiatric: Reports as per HPI, Reports anxiety, Reports depression, Reports hopelessness, Reports anhedonia and Reports suicidal ideation Mental Status Exam Mental Status Exam Patient Appearance: Well Grooomed and Fatigued Patient Orientation: Person, Place, Time and Situation Level of Consciousness: Drowsy Patient Behavior: Cooperative and Isolative Mood Description: Appropriate, Anxious, Sad and Nervous Affect Description: Anxious, Sad and Nervous Ability to Follow Directions: Fair Speech Pattern: Appropriate Memory Description: Normal for Patient Diagnostics Vital Signs (24Hr): Vital Signs - 24 hr 02/05/21 18:00 02/06/21 08:15 Temperature 97 F 97.5 F Pulse Rate 90 91 Respiratory Rate 16 16 Blood Pressure 126/68 131/63 Pulse Oximetry 98 98 Body Mass Index 35.5 Labs Labs: Laboratory Results - last 48 hr 02/04/21 02/04/21 02/04/21 18:19 18:19 19:09 Urine Color YELLOW Urine Appearance CLEAR Urine pH 6.0 Ur Specific [place] 1.025 Urine Protein NEG Urine Glucose (UA) NEG Urine Ketones 5 Urine Blood NEG Urine Nitrite NEG Ur Leukocyte Esterase NEG Urine Opiates Screen POSITIVE H Ur Barbiturates Screen Not Detected Ur Phencyclidine Scrn Not Detected Ur Amphetamines Screen Not Detected U Benzodiazepines Scrn Not Detected Urine Cocaine Screen Not Detected U Marijuana (THC) Screen POSITIVE H COVID-19 (JOAN) Negative COVID-19 Clin Com See Note Medications Medications Current Medications Generic Name Dose Route Start Last Admin Trade Name Freq PRN Reason Stop Dose Admin Acetaminophen 650 mg 02/04/21 21:41 Acetaminophen 325 Mg Tablet PO Q6H PRN Headache/Pain Mild Scale (1-3) Al Hydroxide/Mg Hydroxide 30 ml 02/04/21 21:41 Magnesium Hydrox/Alum Hydrox 30 Ml Oral.Susp PO Q6H PRN Heartburn/Nausea Divalproex Sodium 1,000 mg 02/05/21 21:00 02/05/21 21:13 Divalproex Sodium Er 500 Mg Tab.Er.24h PO 1,000 mg BEDTIME TIANNA Administration Fluoxetine HCl 20 mg 02/05/21 11:15 02/06/21 08:13 Fluoxetine Hcl 20 Mg Capsule PO 20 mg DAILY TIANNA Administration Hydroxyzine HCl 25 mg 02/04/21 21:41 02/05/21 21:13 Hydroxyzine Hcl 25 Mg Tablet PO 25 mg BEDTIME PRN Administration Anxiety Magnesium Hydroxide 30 ml 02/04/21 21:41 Milk Of Magnesia 30 Ml Oral.Susp PO DAILY PRN Constipation Nicotine Polacrilex 2 mg 02/06/21 16:11 02/06/21 16:23 Nicotine Polacrilex 2 Mg Gum BUCCAL 2 mg Q1H PRN Administration Nicotine Cravings Olanzapine 10 mg 02/05/21 11:15 02/06/21 08:13 Olanzapine 10 Mg Tablet PO 10 mg BID TIANNA Administration Quetiapine Fumarate 50 mg 02/04/21 22:09 Quetiapine Fumarate 50 Mg Tablet PO Q4H PRN Anxiety Allergies Allergies Allergy/AdvReac Type Severity Reaction Status Date / Time trazodone [Trazodone] Allergy Severe SWOLLEN Verified 01/26/21 19:03 TONGUE amoxicillin [Amoxicillin] Allergy Unknown UNKNOWN Verified 01/26/21 19:03 haloperidol [From HALDOL] Allergy Unknown UNKNOWN Verified 01/26/21 19:03 Amoxicillin Allergy Unknown Unknown Uncoded 12/30/20 20:21 Assessment & Plan Assessment & Plan (1) Schizoaffective disorder: Status: Acute Code(s): F25.9 - Schizoaffective disorder, unspecified (2) Suicidal ideation: Status: Acute Code(s): R45.851 - Suicidal ideations (3) Substance abuse: Status: Acute Code(s): F19.10 - Other psychoactive substance abuse, uncomplicated Assessment and Plan: 30 year old man who is experiencing an increase in depression and substance use. He has no sx or sx of WD. Historically he has done well with depakote, prozac and olanzapine. It is not clear if he has been taking these nor when he last took them so will re-start and titrate doses as tolerated. Engage with the staff at [facility] regarding potential DC. Greater than 50% of the session was spent on counseling and/or coordination of care Patient educated on: diagnosis, medication risk/benefits and substance abuse Informed Consent: further education needed Reason for contiued inpatient stay Substantial Risk for: inability to function and rapid decompensation
[2021-02-06 18:00] VITALS: BP 131/66; PULSE 76; TEMP 36.5
[2021-02-06] MEDS: Divalproex Sodium ER 500 MG TAB.ER.24H 1000 MG PO (20:39)
[2021-02-07 06:00] VITALS: BP 126/60; PULSE 78; RESP 18; TEMP 36.1; O2SAT 98
[2021-02-07] MEDS: FLUoxetine HCl 20 MG CAPSULE PO (08:53)
[2021-02-07] MEDS: OLANZapine 10 MG TABLET PO ×2 (08:53→20:31)
[2021-02-07 08:54] LABS: Valproate 34.2 mcg/mL (50.0-100.0)
[2021-02-07] MEDS: Nicotine Polacrilex 2 MG GUM BUCCAL ×3 (08:55→14:06)
--- NOTE | 2021-02-07 10:04 | HO.PSYCHPN ---
Subjective Subjective Date of Service: 02/07/21 Reason For Visit: SI Interim History: Patient was calm and friendly on approach. He said that his depression has resolved, his mood is good and that all SI has resolved. He says he thinks he was just feeling lonely, missing his mother which triggered him to use. Patient also shared that he has chronic suicidal ideation and depression which is intermittent and that he has been working on this with his therapist for quite some time. He says he has a motor coach tour operator who is also hard of hearing which has been helpful. Patient asked for discharge. He said he got here last Sunday, needed a place to take a breath, feeling like his back was hurting and wanted a new bed for a few days, and that he needed people to talk...he reports he now feels 100% better and ready to go back to [facility]. Patient said that he feels he has a very supportive group around him and will be able to remain sober. Oil And Gas Field Technician discussed with him the risks and his vulnerability to relapse, and explained about medications that can help him resist heroin, specifically Suboxone verse Naltrexone/Vivitrol. Patient said that he is not feeling the need for these meds at this time, but will consider it. Towards the end of the interview patient became adamant that he should be discharged today or at least tomorrow and had a difficult time accepting that newspaper writer was covering for his primary inpt provider and that his inpatient team needed to connect with his outpatient team at [facility] prior to his discharge. Patient became fixated on feeling staff had lied to him about who his primary provider was on the inpatient unit and would not except newspaper writer's explanation; patient continued to express feeling lied to and continued to push for discharge. Oil And Gas Field Technician reiterated that there is a need to evaluate him for safety, find out from [facility] if he is able to return and that this will have to take place before he is discharged. Patient continued to have a difficult time accepting this however said he would be patient while newspaper writer and social work pursued corroborating information. Social Work was able to get a hold of [facility] who said they wanted to have a conversation with patient on Sunday morning prior to him returning. This was explained to patient who accepted it and even said that he would stay longer on the unit if necessary. He also said that he was willing to try maintenance medication for opioid abuse and wanted to discuss it more. Patient was thankful for social and political studies professor and newspaper writer's help. Patient reported he was taking his Depakote daily despite the fact that his level was low on admission and wants to continue with it. Mental Status Exam Mental Status Exam Narrative: Pt is alert and oriented; behavior is cooperative, friendly and calm however became mildly agitated when told he was not discharging today; patient is not in distress; dressed in casual attire, with adequate hygiene and hearing aids; mood is described as good and affect congruent; eye contact appropriate; Speech is normal rate, volume and prosody and not pressured; no psychomotor agitation/retardation present; thought process organized, and goal directed but concrete. Thought content is on discharge, becoming perseverative; otherwise mostly pertinent to relevant topics; denies any SI/HI. There is no evidence of perceptual disturbance. ?Patients insight and judgment appear fair.. Diagnostics Vital Signs (24Hr): Vital Signs - 24 hr 02/06/21 18:00 02/07/21 06:00 Temperature 97.7 F 96.9 F Pulse Rate 76 78 Respiratory Rate 18 Blood Pressure 131/66 126/60 Pulse Oximetry 98 Body Mass Index 35.5 Labs Labs: Laboratory Results - last 48 hr 02/07/21 07:21 Valproic Acid 34.2 L Medications Medications Current Medications Generic Name Dose Route Start Last Admin Trade Name Freq PRN Reason Stop Dose Admin Acetaminophen 650 mg 02/04/21 21:41 Acetaminophen 325 Mg Tablet PO Q6H PRN Headache/Pain Mild Scale (1-3) Al Hydroxide/Mg Hydroxide 30 ml 02/04/21 21:41 Magnesium Hydrox/Alum Hydrox 30 Ml Oral.Susp PO Q6H PRN Heartburn/Nausea Divalproex Sodium 1,000 mg 02/05/21 21:00 02/06/21 20:39 Divalproex Sodium Er 500 Mg Tab.Er.24h PO 1,000 mg BEDTIME TIANNA Administration Fluoxetine HCl 20 mg 02/05/21 11:15 02/07/21 08:53 Fluoxetine Hcl 20 Mg Capsule PO 20 mg DAILY TIANNA Administration Hydroxyzine HCl 25 mg 02/04/21 21:41 02/05/21 21:13 Hydroxyzine Hcl 25 Mg Tablet PO 25 mg BEDTIME PRN Administration Anxiety Magnesium Hydroxide 30 ml 02/04/21 21:41 Milk Of Magnesia 30 Ml Oral.Susp PO DAILY PRN Constipation Nicotine Polacrilex 2 mg 02/06/21 16:11 02/07/21 08:55 Nicotine Polacrilex 2 Mg Gum BUCCAL 2 mg Q1H PRN Administration Nicotine Cravings Olanzapine 10 mg 02/05/21 11:15 02/07/21 08:53 Olanzapine 10 Mg Tablet PO 10 mg BID TIANNA Administration Quetiapine Fumarate 50 mg 02/04/21 22:09 Quetiapine Fumarate 50 Mg Tablet PO Q4H PRN Anxiety Allergies Allergies Allergy/AdvReac Type Severity Reaction Status Date / Time trazodone [Trazodone] Allergy Severe SWOLLEN Verified 01/26/21 19:03 TONGUE amoxicillin [Amoxicillin] Allergy Unknown UNKNOWN Verified 01/26/21 19:03 haloperidol [From HALDOL] Allergy Unknown UNKNOWN Verified 01/26/21 19:03 Amoxicillin Allergy Unknown Unknown Uncoded 12/30/20 20:21 Assessment & Plan Assessment & Plan (1) Schizoaffective disorder: Status: Acute Code(s): F25.9 - Schizoaffective disorder, unspecified (2) Suicidal ideation: Status: Acute Code(s): R45.851 - Suicidal ideations (3) Substance abuse: Status: Acute Code(s): F19.10 - Other psychoactive substance abuse, uncomplicated Assessment and Plan: Oil And Gas Field Technician covering for Nissa Pierce 30 year old man who is experiencing an increase in depression and substance use. He has no sx or sx of WD. Historically he has done well with depakote, prozac and olanzapine which were restarted/continued plan: Will get lab work, including Depakote level Social Work discussed with detention at [facility] patient's disposition; they will accept him back however want to have a phone conversation with him about their expectations and rules prior to this; patient agrees Greater than 50% of the session was spent on counseling and/or coordination of care Reason for contiued inpatient stay Substantial Risk for: med/psych decompensation
[2021-02-07] MEDS: QUEtiapine Fumarate 50 MG TABLET PO (14:22)
--- NOTE | 2021-02-07 14:35 | PC.NURSE ---
Pt signed a 3-Day Notice on Sunday02/07/21 up on 02/10/21.
[2021-02-07] MEDS: Acetaminophen 325 MG TABLET 650 MG PO (17:25)
[2021-02-07 18:00] VITALS: BP 128/66; PULSE 80; RESP 16; TEMP 36.1
[2021-02-07] MEDS: Divalproex Sodium ER 500 MG TAB.ER.24H 1000 MG PO (20:31)
[2021-02-08 06:00] VITALS: BP 126/59; PULSE 78; RESP 18; TEMP 36; O2SAT 98
[2021-02-08 07:38] LABS: Ammonia 47 umol/L (13-55)
[2021-02-08 07:51] LABS: Alanine Aminotransferase 59 U/L (0-40); Albumin Level 4.3 g/dL (3.5-5.0); Alkaline Phosphatase 60 U/L (39-117); Aspartate Amino Transferase 47 U/L (5-37); Bilirubin Direct 0.2 mg/dL (0.0-0.5); Bilirubin Total 0.4 mg/dL (0.0-1.0)
[2021-02-08 07:56] LABS: Valproate 34.3 mcg/mL (50.0-100.0)
[2021-02-08] MEDS: FLUoxetine HCl 20 MG CAPSULE PO (09:01)
[2021-02-08] MEDS: OLANZapine 10 MG TABLET PO (09:01)
[2021-02-08] MEDS: Nicotine Polacrilex 2 MG GUM BUCCAL ×2 (09:08→13:27)
--- NOTE | 2021-02-08 13:25 | PM.PSYDC ---
DS: Providers Provider Date of Service: 02/08/21 Date of admission: 02/04/21 21:41 Date of discharge: 02/08/21 Primary care physician: Unknown Physician Admitting clinician: Brendon Kearns Attending physician on admission: Brendon Kearns Consults: 02/04/21 16:17 Consult to Crisis Stat Reason for consultation: si Attending physician on discharge: Brendon Kearns DS: Diagnosis Discharge Diagnosis (1) Schizoaffective disorder: Status: Acute (2) Suicidal ideation: Status: Acute (3) Substance abuse: Status: Acute DS: Medications Discharge Medications Home Medications: Home Medications Medication Instructions Recorded Confirmed acetaminophen 500 mg tablet 500 mg PO Q6H PRN 02/04/21 02/04/21 divalproex 500 mg tablet,extended 1,000 mg PO BID 02/04/21 02/04/21 release 24 hr fluoxetine 20 mg capsule 60 mg PO DAILY 02/04/21 02/08/21 ibuprofen 400 mg tablet 400 mg PO Q6H PRN 02/04/21 02/04/21 olanzapine 10 mg tablet 15 mg PO BID 02/04/21 02/04/21 Previous Rx's Medication Instructions Recorded nicotine (polacrilex) 4 mg gum 4 mg BUCCAL Q2H #100 ea 02/08/21 Mental Status Exam Mental Status Exam Narrative: Pt is alert and oriented; behavior is cooperative, friendly and calm however became mildly agitated when told he was not discharging today; patient is not in distress; dressed in casual attire, with adequate hygiene and hearing aids; mood is described as good and affect congruent; eye contact appropriate; Speech is normal rate, volume and prosody and not pressured; no psychomotor agitation/retardation present; thought process organized, and goal directed but concrete. Thought content is on discharge, becoming perseverative; otherwise mostly pertinent to relevant topics; denies any SI/HI. There is no evidence of perceptual disturbance. ?Patients insight and judgment appear fair. Data Data Completed and Pending Completed studies during hospitalization [Text1]: 02/04/21 02/04/21 02/04/21 18:19 18:19 19:09 Total Bilirubin Direct Bilirubin AST ALT Alkaline Phosphatase Ammonia Total Protein Albumin Urine Color YELLOW Urine Appearance CLEAR Urine pH 6.0 Ur Specific [place] 1.025 Urine Protein NEG Urine Glucose (UA) NEG Urine Ketones 5 Urine Blood NEG Urine Nitrite NEG Ur Leukocyte Esterase NEG Urine Opiates Screen POSITIVE H Ur Barbiturates Screen Not Detected Valproic Acid Ur Phencyclidine Scrn Not Detected Ur Amphetamines Screen Not Detected U Benzodiazepines Scrn Not Detected Urine Cocaine Screen Not Detected U Marijuana (THC) Screen POSITIVE H COVID-19 (JOAN) Negative COVID-19 Clin Com See Note 02/07/21 02/08/21 02/08/21 07:21 07:10 07:10 Total Bilirubin 0.4 Direct Bilirubin 0.2 AST 47 H D ALT 59 H Alkaline Phosphatase 60 Ammonia 47 Total Protein 7.0 Albumin 4.3 Urine Color Urine Appearance Urine pH Ur Specific [place]ney Urine Protein Urine Glucose (UA) Urine Ketones Urine Blood Urine Nitrite Ur Leukocyte Esterase Urine Opiates Screen Ur Barbiturates Screen Valproic Acid 34.2 L 34.3 L Ur Phencyclidine Scrn Ur Amphetamines Screen U Benzodiazepines Scrn Urine Cocaine Screen U Marijuana (THC) Screen COVID-19 (JOAN) COVID-19 Clin Com DS: Summary Hospital Course Hospital Course: Patient is a 30-year-old male with history of schizoaffective disorder, childhood trauma and PTSD, substance abuse and hearing disorder, 94% deaf presents for depression and SI. Patient signed a CV. On admission, patient reported that he is feeling much better, his depression is gone, mood is good and SI fully resolved. He says he has been down in the ED for few days, taking all his medications and feels good and ready to go. Patient shares that he thinks that he was just feeling increasingly lonely, missing his mother who has been out of town for a month and was thus triggered to use opiates. Patient shared he has chronic SI depression which is intermittent but that he works on this with this therapist and overall is doing better. He also has a monomer recovery operator which he says is helpful. Patient wants to continue on his current medications. He was at 1st dismissive of medications like naltrexone/Vivitrol and did not want Suboxone at all, however he reconsider this and said he would like to try naltrexone/Vivitrol since he agrees that it is a struggle to resist months a craving sets in. Patient was very adamant about being discharged and at 1st had a difficult time accepting that he needed to remain on the unit while his inpatient team connected with his outpatient team at [facility]. However patient was able to calm down and asked her house reported that he was welcome to come back however they just wanted to have a conversation with him prior to. Patient was thankful and agreed to remain, though he did sign a 3 day notice. Patient remained in good mood, with bright affect, without depression or SI and optimistic about staying sober. Patient continued to deny any suicidal or homicidal ideation during admission and demonstrated appropriate behaviors and impulse control on the unit. He reported sleeping well and eating well and looking forward to reengaging with treatment. While patient remains vulnerable to relapse, he is open to treatment, on helpful medications, has a follow-up appointment where he is considering getting on naltrexone, and is returning to a supportive environment. Patientis not in imminent risk for harm to self or others and his request for discharge honored. On day of discharge, patient's lab work came back where his Depakote level is subtherapeutic and his liver enzymes were mildly elevated. Technical Staff Engineer held acetaminophen home medication until his primary care physician could further assess. Patient was made aware of these lab values; the results discussed and pt further informed to hold from taking any acetaminophen products; magnetic tape typewriter operator offered for patient to remain on unit for further her treatment/ follow up lab work, however he politely declined, wanting discharge and saying he will get lab work and following up with his PCP as an outpatient. Time spent discussing smoking cessation with patient: 3 to 10 minutes Status at Discharge Cognitive/behavioral status at discharge: intact/appropriate Overall status at discharge: patient is back to baseline Time Spent with Patient Time attestation: Total time spent providing and/or coordinating discharge services: Discharge Plan Discharge Patient Disposition: Home, Self-Care Discharge Diagnosis: Schizoaffective, disorder, depressed type Referrals: [facility] Intake [Other] - 02/10/21 2:15 pm (This appointment is in office.) Physician,Unknown [Primary Care Provider] - 1 Week (Telephone call was made to PCP office, Zofia zuñiga Titus. Voice message left by hospital executive secretary social welfare for them to call pt with a PCP f/u) Discharge Medications: New nicotine (polacrilex) 4 mg gum 4 mg buccal Q2H Qty: 100 RF: 0 Continued olanzapine 10 mg tablet 15 mg PO BID RF: 0 divalproex 500 mg tablet extended release 24 hr 1,000 mg PO BID RF: 0 fluoxetine 20 mg capsule 60 mg PO DAILY RF: 0 ibuprofen 400 mg Tablet 400 mg PO Q6H PRN (Reason: Pain) RF: 0 Held acetaminophen 500 mg Tablet 500 mg PO Q6H PRN (Reason: Pain) RF: 0 Hold Instructions: hold for PCP to assess Discharge Orders: Discharge Order (Routine); Ordered 02/08/21 Ordered By: Brendon Kearns Diet: regular diet Activity on Discharge: As tolerated Stand Alone Forms: Patient Portal Discharge page, Community Support Other Ambulatory Orders: Liver Panel (Routine) Timeframe: 1 Day Facility: [facility] - Location: Laboratory Ordered By: Brendon Kearns Care Plan Goals: Maintain mood and safe behaviors Take medications as prescribed Continue to pursue sobriety Practice coping skills Continue with outpatient providers and reach out to them as needed ? Health Concerns: Mood instability and behaviors Substance abuse Plan of Treatment: Follow up with your psychiatric provider regarding above concerns Take medications as prescribed Consider starting Naltrexone/Vivitrol Assessment: Risk assessment at time of discharge:? Patient has been observed closely by nursing and unit staff throughout admission; patient has not engaged in any behaviors that suggest dangerousness to self or others and has demonstrated appropriate behaviors and impulse control. Patient was interviewed prior to discharge and found to be fully oriented and without any SI or HI. Patient has insight and demonstrates good judgment in terms of wanting to pursue treatment. Patient is not in imminent risk of harm to self or others and has a safety plan that includes presenting to the closest ER or calling 911 if feeling unsafe.?
== END 2021-02-08 14:30 | disposition home or self-care (01) | DRG 885 ==
LOC: HO.ED 21:22 → HO.PM5 21:50
PROVIDERS: Psychiatry & Neurology Psychiatry; Admitting Provider Psychiatry & Neurology Psychiatry; Emergency Provider Emergency Medicine; Visit Provider Social Worker
DX: F25.9 Schizoaffective disorder, unspecified (principal); R45.851 Suicidal ideations; F17.210 Nicotine dependence, cigarettes, uncomplicated; Z71.6 Tobacco abuse counseling; F11.10 Opioid abuse, uncomplicated; Z20.822 Contact with and (suspected) exposure to COVID-19; Z88.0 Allergy status to penicillin; Z79.1 Long term (current) use of non-steroidal anti-inflammatories (NSAID); Z79.899 Other long term (current) drug therapy
CPT/HCPCS: 36415; 80076; 80164; 80307; 81003; 82140; 87635; 99285

== ENCOUNTER → 2021-02-10 14:16 | Outpatient (BNVA) | payer MEDICARE, MEDICAID, SELFPAY | PROVIDERS: Visit Provider Nurse Practitioner Psychiatric/Mental Health | DX: F11.20 Opioid dependence, uncomplicated (principal); Z51.81 Encounter for therapeutic drug level monitoring; Z79.899 Other long term (current) drug therapy | CPT/HCPCS: 80305; 99212 ==

== ENCOUNTER → 2021-02-17 14:08 | Outpatient (BNVA) | payer MEDICARE, MEDICAID, SELFPAY | PROVIDERS: Visit Provider Nurse Practitioner Psychiatric/Mental Health | DX: F11.99 Opioid use, unspecified with unspecified opioid-induced disorder (principal); F12.10 Cannabis abuse, uncomplicated; F17.210 Nicotine dependence, cigarettes, uncomplicated; Z51.81 Encounter for therapeutic drug level monitoring | CPT/HCPCS: 99212 ==

== ENCOUNTER 2021-02-28 11:47 | Outpatient (REF) | payer MEDICARE, MEDICAID, SELFPAY ==
--- NOTE | 2021-02-28 11:54 | MHC.AU.P13 ---
Hearing Instrument Problem Date of Visit: 02/28/21 Right Ear: Shrimp Peeling Machine Operator: Phonak Model: Audeo P70-13T Serial Number: [id number] Repair Warranty: 12/29/2023 Loss and Damage Warranty: 12/29/2023 Battery Size: 13 Color: Sand Beige Furnace Charging Machine Operator: Size 2 UP Type of Mold: C-Shell SN: [id number] Warranty: 01/29/2021 Type of Wax Guard: Cerustop Dispensed By: [facility] Date of Fittin12/06/2018 Left Ear: Shrimp Peeling Machine Operator: Phonak Model: International Cardio CorporationEO P 70-13T Serial Number: [id number] Repair Warranty: 12/29/2023 Loss and Damage Warranty: 12/29/2023 Battery Size: 13 Color: Sand Beige Furnace Charging Machine Operator: #2 UP Type of Mold: Phonak Clear Canal C-Shell #[id number] warranty expires 01/29/21 Type of Wax Guard: CeruStop Dispensed By: [facility] Date of Fittin08/24/2017 Follow-Up Summary: Patient came in to fill out L&D for left hearing aid - faxed to [employer]. Recommendations: Recommendations: Patient will be contacted when materials have arrived. Signature: Provider: KELLI Joseph-HIS
== END 2021-02-28 11:48 | disposition home or self-care (01) ==
LOC: HO.HAP 11:47
PROVIDERS: Visit Provider Internal Medicine
DX: Z13.89 Encounter for screening for other disorder (principal)

== ENCOUNTER 2021-03-08 10:07 | Outpatient (REF) | payer MEDICARE, MEDICAID, SELFPAY | END 2021-03-08 10:08 | disposition home or self-care (01) | LOC: HO.HAP 10:07 | DX: Z13.89 Encounter for screening for other disorder (principal) ==

== ENCOUNTER → 2021-03-10 11:17 | Outpatient (BNVA) | payer MEDICARE, MEDICAID, SELFPAY | PROVIDERS: Visit Provider Nurse Practitioner Psychiatric/Mental Health | DX: F11.20 Opioid dependence, uncomplicated (principal) | CPT/HCPCS: 80305; 96372; 99212; J2315 ==

== ENCOUNTER 2021-04-26 14:58 | Emergency (ER) | payer MEDICARE, MEDICAID, SELFPAY | END 2021-04-26 17:15 | disposition left against medical advice (07) | LOC: HO.ED 16:22 | PROVIDERS: Emergency Provider Emergency Medicine; PCP Internal Medicine | DX: Z13.9 Encounter for screening, unspecified (principal) ==

== ENCOUNTER 2021-04-27 09:57 | Emergency (ER) | payer MEDICARE, MEDICAID, SELFPAY ==
[2021-04-27 10:06] VITALS: BP 151/81; PULSE 105; RESP 18; TEMP 36.8; O2SAT 96; BMI 32.4
--- NOTE | 2021-04-27 11:10 | ED.GENADULT ---
HPI - General Adult General Chief complaint: General Medical Stated complaint: MEDICAL CLEARENCE Time Seen by Provider: 04/27/21 10:53 Source: patient and family Mode of arrival: ambulatory Limitations: no limitations History of Present Illness MD complaint: med clearance Onset (ago): day(s) (today) Severity: mild Relieving factors: none Exacerbating factors: none Associated symptoms: denies other symptoms Treatments prior to arrival: none Related Data Home Medications Medication Instructions Recorded Confirmed acetaminophen 500 mg tablet 500 mg PO Q6H PRN 02/04/21 02/04/21 divalproex 500 mg tablet,extended 1,000 mg PO BID 02/04/21 02/04/21 release 24 hr fluoxetine 20 mg capsule 60 mg PO DAILY 02/04/21 02/08/21 ibuprofen 400 mg tablet 400 mg PO Q6H PRN 02/04/21 02/04/21 olanzapine 10 mg tablet 15 mg PO BID 02/04/21 02/04/21 Previous Rx's Medication Instructions Recorded nicotine (polacrilex) 4 mg gum 4 mg BUCCAL Q2H #100 ea 02/08/21 naltrexone 50 mg tablet 50 mg PO DAILY #30 tab 02/10/21 naltrexone microspheres 380 mg 380 mg IM Q4W #1 ea 02/17/21 intramuscular suspension,extended release (Vivitrol) Allergies Allergy/AdvReac Type Severity Reaction Status Date / Time trazodone [Trazodone] Allergy Severe SWOLLEN Verified 04/27/21 10:06 TONGUE amoxicillin [Amoxicillin] Allergy Unknown UNKNOWN Verified 04/27/21 10:06 haloperidol [From HALDOL] Allergy Unknown UNKNOWN Verified 04/27/21 10:06 Amoxicillin Allergy Unknown Unknown Uncoded 12/30/20 20:21 Review of Systems Review of Systems: Constitutional : No Fever, No Chills ENT/Mouth : No sore throat, No Rhinorrhea Eyes: No Eye Pain, No Swelling, No Redness Cardiovascular : No Chest Pain, No SOB Respiratory : No Cough, No Sputum, No Wheezing Gastrointestinal : No Nausea, No Vomiting, No Diarrhea, Genitourinary : No Dysuria, No Urinary Frequency, No Hematuria, Musculoskeletal : No joint pain, No Myalgias, No Joint Swelling Skin : No Skin Lesions, No rash Neuro : No Weakness, No Numbness, No Dizziness, No Headache PMFSH Past Medical History Attestation statement: The following information was validated with the patient. Medical History Anxiety Schizoaffective disorder Substance abuse Family History Family History Other Family history non-contributory Social History Social History Household Members: None and Other Housing: Other Housing Other:: [facility] Alcohol intake: unknown Patient Tobacco Use Status: Tobacco use Unknown Tobacco use type: Cigarette Cigarette Packs Per Day: 1 Cigarettes Per Day: 20.0 Years Smoked: 11 Second Hand Smoke Exposure: Yes Substance Use Type: Heroin and Marijuana Advance Directives: No Advance Directives Information Provided: Yes service: No Sexual orientation: Straight/Heterosexual Physical Exam Vital Signs: Vital Signs: Last Vital Signs Temp 98.2 F 04/27/21 11:31 Pulse 100 04/27/21 11:31 Resp 20 04/27/21 11:31 BP 129/66 04/27/21 11:31 Pulse Ox 97 04/27/21 11:31 Body Mass Index 32.4 Appearance: Alert. Oriented X3. No acute distress. Eyes: Pupils equal, round and reactive to light. ENT: Pharynx normal. Neck: Normal inspection. Neck supple. CVS: Normal heart rate and rhythm. Pulses normal. Respiratory: No respiratory distress. Breath sounds normal. Abdomen: Soft and nontender. Skin: Skin warm and dry. Normal skin color. Normal skin turgor. Extremities: No lower extremity edema. No calf ttp Neuro: Oriented X 3. No motor deficit. No sensory deficit. Medical Decision Making [facility] Narrative Medical decision making narrative: 30 yo male here requesting urine drug screen so he can get back into program - has no complaints, no medical issues, VS stable Lab Data Labs: Lab Results 04/27/21 Range/Units 11:05 Urine Opiates Screen Not Detected (Not Detect) Urine Fentanyl Screen Not Detected (Not Detect) Ur Barbiturates Screen Not Detected (Not Detect) Ur Phencyclidine Scrn Not Detected (Not Detect) Ur Amphetamines Screen Not Detected (Not Detect) U Benzodiazepines Scrn Not Detected (Not Detect) Urine Cocaine Screen Not Detected (Not Detect) U Marijuana (THC) Screen POSITIVE H (Not Detect) Discharge Plan Discharge Clinical Impression: Normal exam Patient Disposition: Home, Self-Care Instructions: Normal Exam (ED) Additional Instructions: return to ED for any worsening symptoms or concerns positive THC only Prescriptions: No Action olanzapine 10 mg tablet 15 mg PO BID RF: 0 divalproex 500 mg tablet extended release 24 hr 1,000 mg PO BID RF: 0 fluoxetine 20 mg capsule 60 mg PO DAILY RF: 0 acetaminophen 500 mg Tablet 500 mg PO Q6H PRN (Reason: Pain) RF: 0 Hold Instructions: hold for PCP to assess ibuprofen 400 mg Tablet 400 mg PO Q6H PRN (Reason: Pain) RF: 0 nicotine (polacrilex) 4 mg gum 4 mg buccal Q2H Qty: 100 RF: 0 naltrexone 50 mg tablet 50 mg PO DAILY Qty: 30 RF: 0 Vivitrol 380 mg suspension,extended rel recon 380 mg IM Q4W Qty: 1 RF: 5
[2021-04-27 11:31] VITALS: BP 129/66; PULSE 100; RESP 20; TEMP 36.8; O2SAT 97
[2021-04-27 11:34] LABS: Amphetamine Screen Urine Not Detected (Not Detect); Barbiturates, Urine Not Detected (Not Detect); Benzodiazepines Screen Urine Not Detected (Not Detect); Cannabinoid Screen Urine POSITIVE (Not Detect); Cocaine Screen Urine Not Detected (Not Detect); Fentanyl, urine Not Detected (Not Detect); Opiate Screen Urine Not Detected (Not Detect); Phencyclidine Screen Urine Not Detected (Not Detect)
== END 2021-04-27 11:49 | disposition home or self-care (01) ==
PROVIDERS: Emergency Provider Emergency Medicine; PCP Internal Medicine
DX: Z03.89 Encounter for observation for other suspected diseases and conditions ruled out (principal); F41.9 Anxiety disorder, unspecified; F25.9 Schizoaffective disorder, unspecified; Z79.899 Other long term (current) drug therapy
CPT/HCPCS: 80307; 99283

== ENCOUNTER 2021-05-06 01:01 | Emergency (ER) | payer MEDICARE, MEDICAID, SELFPAY ==
--- NOTE | 2021-05-06 01:03 | ED.PSYCH ---
HPI - Psych General Chief Complaint: ETOH/Substance Use Stated Complaint: Anxiety Time Seen by Provider: 05/06/21 01:02 Source: patient Mode of arrival: ambulatory Limitations: no limitations History of Present Illness MD complaint: anxiety (feels people are following him) Onset (ago): minute(s) Duration: constant History of same: Yes Relieving factors: none Exacerbating factors: drug use (did cocaine) Context: recent drug abuse and other (not in his program anymore) Associated psychiatric symptoms: none Associated symptoms: denies other symptoms Treatments prior to arrival: none Related Data Home Medications Medication Instructions Recorded Confirmed acetaminophen 500 mg tablet 500 mg PO Q6H PRN 02/04/21 02/04/21 divalproex 500 mg tablet,extended 1,000 mg PO BID 02/04/21 02/04/21 release 24 hr fluoxetine 20 mg capsule 60 mg PO DAILY 02/04/21 02/08/21 ibuprofen 400 mg tablet 400 mg PO Q6H PRN 02/04/21 02/04/21 olanzapine 10 mg tablet 15 mg PO BID 02/04/21 02/04/21 Previous Rx's Medication Instructions Recorded nicotine (polacrilex) 4 mg gum 4 mg BUCCAL Q2H #100 ea 02/08/21 naltrexone 50 mg tablet 50 mg PO DAILY #30 tab 02/10/21 naltrexone microspheres 380 mg 380 mg IM Q4W #1 ea 02/17/21 intramuscular suspension,extended release (Vivitrol) Allergies Allergy/AdvReac Type Severity Reaction Status Date / Time trazodone [Trazodone] Allergy Severe SWOLLEN Verified 04/27/21 10:06 TONGUE amoxicillin [Amoxicillin] Allergy Unknown UNKNOWN Verified 04/27/21 10:06 haloperidol [From HALDOL] Allergy Unknown UNKNOWN Verified 04/27/21 10:06 Amoxicillin Allergy Unknown Unknown Uncoded 12/30/20 20:21 Review of Systems Review of Systems: Constitutional : No Fever, No Chills ENT/Mouth : No Ear Pain, No Nasal Congestion, No sore throat Eyes: No Eye Pain, No Swelling, No Redness Cardiovascular : No Chest Pain, No SOB Respiratory : No Cough, No Sputum, No Dyspnea Gastrointestinal : No Nausea, No Vomiting, No Diarrhea, No Hematochezia, No Melena Genitourinary : No Dysuria, No Urinary Frequency, No Hematuria Musculoskeletal : No Myalgias Skin : No Skin Lesions, No rash Neuro : No Weakness, No Numbness, No Paresthesias, No Dizziness, No Headache Psych : positive Anxiety, no Depression, no SI/HI Heme/Lymph: No Lymphadenopathy Endocrine : No Polyuria, No Polydipsia All other systems reviewed and are negative [facility] Past Medical History Attestation statement: The following information was validated with the patient. Medical History Anxiety Schizoaffective disorder Substance abuse Family History Family History Other Family history non-contributory Social History Social History (Updated 05/06/21 @ 01:03 by Brunilda Rogers DO) Household Members: None and Other Housing: Other Housing Other:: [facility] Alcohol intake: unknown Patient Tobacco Use Status: Tobacco use Unknown Tobacco use type: Cigarette Cigarette Packs Per Day: 1 Cigarettes Per Day: 20.0 Years Smoked: 11 Second Hand Smoke Exposure: Yes Use of substances other than those prescribed or required for medical reasons: Yes Substance Use Type: Crack/Cocaine, Heroin and Marijuana Substance Use Frequency: Chronic Longstanding Last Used Substance: Hours (ago) Any prior treatment program specific to substance use: Yes Advance Directives: No Advance Directives Information Provided: No service: No Sexual orientation: Straight/Heterosexual Physical Exam Vital Signs: Vital Signs: Last Vital Signs Temp 98.2 F 05/06/21 01:59 Pulse 94 05/06/21 01:59 Resp 16 05/06/21 02:44 BP 138/62 05/06/21 01:59 Pulse Ox 94 05/06/21 01:59 Body Mass Index 30.5 Appearance: Alert. Oriented X3. No acute distress. Anxious Eyes: Pupils equal, round and reactive to light. ENT: Pharynx normal. Neck: Normal inspection. Neck supple. CVS: Normal heart rate and rhythm. Pulses normal. Respiratory: No respiratory distress. Breath sounds normal. Abdomen: Soft and non-tender. Skin: Skin warm and diaphoretic. Normal skin color. Normal skin turgor. Extremities: No lower extremity edema. No calf ttp Neuro: Oriented X 3. No motor deficit. No sensory deficit. CN2-12 intact Psych: no SI/HI, pos anxiety Course Course Course Narrative: CARE team involved - can go back to senior care we plan to keep him until the AM so senior care can pick him up I cannot section him he has no SI - but he is very upset he cannot watch TV right now and likely plans to leave if we cannot provide him a TV. He has a steady gait and is alert and oriented x 3. MDM - Psych MDM Narrative Medical decision making narrative: 30 yo male with mental health and substance abuse issues did cocaine tonight and now feels people are out to get him. He is no longer in his program. Will observe til more calm, give PO ativan, COVID swab and drug screen. Dispo per results and improvement Lab Data Labs: Lab Results 05/06/21 Range/Units 01:17 COVID-19 (JOAN) Negative (Negative) COVID-19 Clin Com See Note Discharge Plan Discharge Clinical Impression: Anxiety, Cocaine abuse Patient Disposition: Home, Self-Care Instructions: Cocaine Abuse (ED), Anxiety (ED) Additional Instructions: return to ED for any worsening symptoms or concerns Prescriptions: No Action olanzapine 10 mg tablet 15 mg PO BID RF: 0 divalproex 500 mg tablet extended release 24 hr 1,000 mg PO BID RF: 0 fluoxetine 20 mg capsule 60 mg PO DAILY RF: 0 acetaminophen 500 mg Tablet 500 mg PO Q6H PRN (Reason: Pain) RF: 0 Hold Instructions: hold for PCP to assess ibuprofen 400 mg Tablet 400 mg PO Q6H PRN (Reason: Pain) RF: 0 nicotine (polacrilex) 4 mg gum 4 mg buccal Q2H Qty: 100 RF: 0 naltrexone 50 mg tablet 50 mg PO DAILY Qty: 30 RF: 0 Vivitrol 380 mg suspension,extended rel recon 380 mg IM Q4W Qty: 1 RF: 5
[2021-05-06 01:04] VITALS: BP 187/92; PULSE 100; RESP 20; TEMP 37.4; O2SAT 96; BMI 30.5
[2021-05-06] MEDS: LORazepam 1 MG TABLET 2 MG PO (01:14)
--- NOTE | 2021-05-06 01:20 | PC.NURSE ---
pt a&o, no sob or chest pain. pt has increase anxiety. pt reports people are chasing him. medicated per mar. Covid swab collected and sent.
--- NOTE | 2021-05-06 01:35 | MHC.CARE ---
T/W spoke with Lita Ceballos (Chair Caner) from [facility] ([phone]). Lita reports that when pt does not like rules or doesn't get his way he goes AWOL. Pt had left the program this evening and went and used. Lita reports she does not think pt is in crisis and has been presenting with baseline behaviors. Pt has wyatt hx of using substance which does impact his mental health. Lita states he is able to return the program however pt needs to be medically cleared and requests a tox screen prior to discharge. Lita requests he remain in the ED and someone will be able to pick him up after 10am. Information was verbalized to Dr. Rogers who is in agreement with plan.
[2021-05-06 01:44] LABS: COVID-19 Test Negative (Negative)
[2021-05-06 01:55] VITALS: RESP 16
--- NOTE | 2021-05-06 01:56 | PC.NURSE ---
Pt given a sandwich and juice at this time.
[2021-05-06 01:59] VITALS: BP 138/62; PULSE 94; TEMP 36.8; O2SAT 94
[2021-05-06 02:44] VITALS: RESP 16
--- NOTE | 2021-05-06 04:13 | MHC.MBSS ---
PT CONTINUE TO BE REDIRECTED TO STAY IN BED. PT REQUESTING FOOD. SANDWICH AND DRINK PROVIDED. PT CONTINUES TO PICK AT FACE AND HEAD. REDIRECTED SEVERAL TIMES.
[2021-05-06 06:05] VITALS: RESP 16
--- NOTE | 2021-05-06 06:06 | PC.NURSE ---
pt is sleeping at this time. no sign of distress. Plan is for patient to discharge to [facility]
--- NOTE | 2021-05-06 06:12 | PC.NURSE ---
pt continue to keep picking for head and face. redirected multiple times, provider is aware.
--- NOTE | 2021-05-06 08:19 | PC.NURSE ---
The pt is alert and oriented x 3, resting in hallway stretcher awaiting dispo. Per ED MD the pt is discharged, however [facility] staff has requested we obtain a UTox prior to D/C nd notify them of the result. Pt ambulated to the bathroom independently and with steady gait and provided a urine sample without difficulty. He denies pain. Respirations non-labored.
[2021-05-06 08:39] LABS: Amphetamine Screen Urine Not Detected (Not Detect); Barbiturates, Urine Not Detected (Not Detect); Benzodiazepines Screen Urine Not Detected (Not Detect); Cannabinoid Screen Urine POSITIVE (Not Detect); Cocaine Screen Urine Not Detected (Not Detect); Fentanyl, urine POSITIVE (Not Detect); Opiate Screen Urine Not Detected (Not Detect); Phencyclidine Screen Urine Not Detected (Not Detect)
--- NOTE | 2021-05-06 08:47 | PC.NURSE ---
I spoke with staff from [facility] to noitfy them that this patient is discharged, They requested he provide a urine tox prior to DC nd that we notify them of results. We performed it, it was positive for marijuana and fentanyl, and I notified Lita at [facility] that he is prepared for DC. Her responswe to me was could you please do a crisis eval on him because hes been paranoid, delusional and leaving the program and his family intends to pursue a section 35.
--- NOTE | 2021-05-06 09:06 | PC.NURSE ---
I spoke with fabiana from [facility] and informed her that our care team has come to the conclusion that Kyler does not require a crisis eval and he is ready for discharge back to [facility]. Staff at [facility] state we dont know when he will be picked up because we're really short staffed. will arrange for a LYFT and notify [facility] Kendrick.
--- NOTE | 2021-05-06 09:21 | PC.NURSE ---
This RN attempted to contact [facility] to notify that CARE team is arranging LYFT for patient transport. no answer from number provided in previous noted to [facility] office or at main number. patient brought out to waiting room to wait for LYFT.
--- NOTE | 2021-05-06 09:31 | PC.NURSE ---
Discharged at this time. LYFT provided by [facility], pt D/C'd to waiting room and is awaiting LYFT back to [facility].
== END 2021-05-06 09:33 | disposition home or self-care (01) ==
LOC: HO.ED 01:18
PROVIDERS: Emergency Provider Emergency Medicine; PCP Internal Medicine
DX: F41.9 Anxiety disorder, unspecified (principal); F14.10 Cocaine abuse, uncomplicated; Z20.822 Contact with and (suspected) exposure to COVID-19
CPT/HCPCS: 36415; 80307; 87635; 99285

== ENCOUNTER 2021-05-25 15:37 | Outpatient (REF) | payer MEDICARE, MEDICAID, SELFPAY | END 2021-05-25 15:38 | disposition home or self-care (01) | LOC: HO.HAP 15:37 | PROVIDERS: Visit Provider Internal Medicine | DX: Z46.1 Encounter for fitting and adjustment of hearing aid (principal); H90.3 Sensorineural hearing loss, bilateral | CPT/HCPCS: V5264 ==

== ENCOUNTER 2021-09-01 09:24 | Outpatient (REF) | payer MEDICARE, MEDICAID, SELFPAY | END 2021-09-01 09:25 | disposition home or self-care (01) | LOC: HO.HAP 09:24 | PROVIDERS: Visit Provider Internal Medicine | DX: Z13.89 Encounter for screening for other disorder (principal) ==

== ENCOUNTER 2021-09-12 09:26 | Outpatient (REF) | payer MEDICARE, MEDICAID, SELFPAY | END 2021-09-12 09:27 | disposition home or self-care (01) | LOC: HO.HAP 09:26 | PROVIDERS: Visit Provider Internal Medicine | DX: Z13.89 Encounter for screening for other disorder (principal) ==

== ENCOUNTER 2021-09-13 09:29 | Outpatient (REF) | payer MEDICARE, MEDICAID, SELFPAY | END 2021-09-13 09:30 | disposition home or self-care (01) | LOC: HO.HAP 09:29 | PROVIDERS: Visit Provider Internal Medicine | DX: Z13.89 Encounter for screening for other disorder (principal) ==

== ENCOUNTER 2021-09-22 12:35 | Outpatient (REF) | payer MEDICARE, MEDICAID, SELFPAY | END 2021-09-22 12:36 | disposition home or self-care (01) | LOC: HO.HAP 12:35 | PROVIDERS: Visit Provider Internal Medicine | DX: Z46.1 Encounter for fitting and adjustment of hearing aid (principal); H90.3 Sensorineural hearing loss, bilateral | CPT/HCPCS: V5264 ==

== ENCOUNTER 2021-10-26 14:48 | Emergency (ER) | payer MEDICARE, MEDICAID, SELFPAY ==
--- NOTE | ~2021-10-26 | XR_ITS ---
EXAMINATION: XR CHEST CLINICAL INFORMATION: Evaluate for pneumonia COMPARISON: 09/01/2020 TECHNIQUE: Frontal view of the chest was obtained. FINDINGS: No acute finding. Low lung volumes. No infiltrate. There is no effusion. The cardiac silhouette is within normal limits. The hilar regions do not appear pathologically enlarged. XR/XR chest 1V IMPRESSION: No acute finding
[2021-10-26 15:28] VITALS: BP 136/63; PULSE 120; RESP 19; TEMP 37.6; O2SAT 92; BMI 37.9
--- NOTE | 2021-10-26 17:10 | ED_ITS ---
HPI - General Adult General Chief complaint: Back Pain/Injury Stated complaint: back pain Time Seen by Provider: 10/26/21 16:07 Source: patient Mode of arrival: ambulatory Limitations: no limitations History of Present Illness HPI narrative: 31-year-old male history of schizophrenia and opiate abuse presents to ED to be tested for medical clearance he could go to detox program. Patient states presently staying [facility] and got into argument with staff member and then call to be brought to the ER streaky have medical evaluation to go to detox program where he has a bed. Patient is on a [address] by his mother. Patient also states chronic back pain for the past year but does not have any nausea, vo miting, fever, chills, dysuria, hematuria, flank pain, or any urinary/bowel incontinence. Patient also states not feeling well. Patient states at baseline he has 95% hearing loss in both ears. Related Data Home Medications Medication Instructions Recorded Confirmed acetaminophen 500 mg tablet 500 mg PO Q6H PRN 02/04/21 02/04/21 divalproex 500 mg tablet,extended 1,000 mg PO BID 02/04/21 02/04/21 release 24 hr fluoxetine 20 mg capsule 60 mg PO DAILY 02/04/21 02/08/21 ibuprofen 400 mg tablet 400 mg PO Q6H PRN 02/04/21 02/04/21 olanzapine 10 mg tablet 15 mg PO BID 02/04/21 02/04/21 Previous Rx's Medication Instructions Recorded nicotine (polacrilex) 4 mg gum 4 mg BUCCAL Q2H #100 ea 02/08/21 naltrexone 50 mg tablet 50 mg PO DAILY #30 tab 02/10/21 naltrexone microspheres 380 mg 380 mg IM Q4W #1 ea 02/17/21 intramuscular suspension,extended release (Vivitrol) Allergies Allergy/AdvReac Type Severity Reaction Status Date / Time trazodone [Trazodone] Allergy Severe SWOLLEN Verified 04/27/21 10:06 TONGUE amoxicillin [Amoxicillin] Allergy Unknown UNKNOWN Verified 04/27/21 10:06 haloperidol [From HALDOL] Allergy Unknown UNKNOWN Verified 04/27/21 10:06 Amoxicillin Allergy Unknown Unknown Uncoded 12/30/20 20:21 Review of Systems Review of Systems: Chronic back pain. Medical clearance for detox. Yes all other systems are reviewed and are negative PMFSH Past Medical History Medical History Anxiety Schizoaffective disorder Substance abuse Family History Family History Other Family history non-contributory Social History Social History (Updated 05/06/21 @ 01:03 by Brunilda Rogers DO) Household Members: None and Other Housing: Other Housing Other:: [facility] Alcohol intake: unknown Patient Tobacco Use Status: Tobacco use Unknown Tobacco use type: Cigarette Cigarette Packs Per Day: 1 Cigarettes Per Day: 20.0 Years Smoked: 11 Second Hand Smoke Exposure: Yes Substance Use Type: Crack/Cocaine, Heroin and Marijuana Advance Directives: No Advance Directives Information Provided: No service: No Sexual orientation: Straight/Heterosexual Physical Exam ED Vital Signs: Vital Signs - 24 hr 10/26/21 15:28 10/26/21 17:40 10/26/21 18:57 Temperature 99.6 F 99.0 F 98.8 F Pulse Rate 120 H 110 H 104 H Respiratory Rate 19 18 20 Blood Pressure 136/63 129/65 121/61 Pulse Oximetry 92 95 94 10/26/21 19:19 10/26/21 20:20 Temperature 98 F Pulse Rate 99 94 Respiratory Rate 20 20 Blood Pressure 112/46 L 117/59 L Pulse Oximetry 95 95 BMI result Body Mass Index 37.9 Const Other: Patient is at his baseline. General: cooperative, healthy appearing, comfortable, no acute distress, well developed, alert, awake and Physically active Orientation/consciousness: oriented to person, oriented to place, oriented to time and patient oriented x3 HENMT Head: Yes normal to inspection, Yes No palpable skull fracture present, Yes normocephalic, Yes atraumatic and No abrasion Eyes General: appearance normal, both eyes and all related structures Neck Neck: Yes normal visual inspection, Yes full ROM, Yes no lymphadenopathy, Yes no meningeal signs, Yes trachea midline, Yes supple, No anterior neck swelling and No tender Chest Chest palpation & inspection: normal inspection of the chest and normal palpation of entire chest wall Resp Effort & Inspection: normal respiratory effort and able to speak in complete sentences Auscultation: clear to auscultation bilaterally Cardio Jugular venous distension: no JVD Heart sounds: S1 normal heart sound present and S2 normal heart sound present GI Inspection: Yes normal to inspection and No abdominal wall ecchymosis Palpation (GI): Soft to palpation, not firm, nontender, no guarding and not rigid General: No CVA tenderness and Yes no CVA tenderness Back/Spine/Pelvis Back: no CVA tenderness, No CVA tenderness and No back tenderness Skin General skin exam: no rashes or lesions noted and elasticity normal Neuro General: oriented to person, oriented to place, oriented to time, patient oriented x3, gait normal, no meningeal signs and CN's II-XI intact bilaterally Extrem General: Yes normal to inspection and Yes full ROM Psych Appearance: grossly normal, well kempt and not disheveled Course Course Course Narrative: Have seen patient before and patient is at his baseline mentally. Labs were ordered initially before so patient and patient stating not feeling well alhtough he is well appearing. Will Follow up with labs. ESR and CRP added. Will add CPK to check for signs of dehydration. Patient is not altered. Reevaluation(s) Reevaluation #1: History physical exam does not indicate epidural abscess or cauda equina syndrome.. Patient does not have any elevated white blood cell count. ESR and CRP is normal. Patient not in any distress in the ER. Patient watching television. Negative for spine tenderness. Patient ate 2 chips, sandwich, and drinking drill. Patient has normal gait. Patient like to be discharged. Labs are normal. CPK shows mild dehydration and was given fluids. Vital signs are stable. patient states feeling well. Patient's SARS negative and UA negative for UTI. Time: 19:17 Reevaluation #2: Chest x-ray normal. Patient is safe for discharge. No need for cardiac evaluation. Patient denied having any chest pain or shortness of breath. Patient currently asymptomatic. Patient watching television and eating multiple rounds of food. 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 Case discussed with Dr. Alcocer who agreed with plan. NO need for back xray. negative for any spine tenderness. Time: 20:21 Medical Decision Making MDM Narrative Medical decision making narrative: Medical clearance Lab Data Result diagrams: 10/26/21 17:41 10/26/21 17:41 Labs: Lab Results 10/26/21 10/26/21 10/26/21 Range/Units 17:40 17:41 17:41 WBC 5.7 (4.8-10.8) X10*3/uL RBC 3.98 L (4.60-5.80) X10*6/uL Hgb 13.1 L (14.0-18.0) g/dl Hct 37.2 L (42.0-52.0) % MCV 93.5 (80.0-98.0) fL MCH 32.9 (27.0-33.0) pg MCHC 35.2 (31.0-36.0) g/dl RDW 13.2 (11.0-16.0) % Plt Count 262 (160-400) X10*3/uL MPV 8.7 L (9.4-12.4) fL Immature Gran % (Auto) 0.5 H (0.0-0.4) % Neut % (Auto) 74.0 H (45-73) % Lymph % (Auto) 17.8 L (20-40) % [place] % (Auto) 7.3 (2-11) % Eos % (Auto) 0.2 (0-4) % Baso % (Auto) 0.2 (0-2) % Lymph # (Auto) 1.0 L (1.2-4.9) X10*3/uL [place] # (Auto) 0.4 (0.1-1.2) X10*3/uL Eos # (Auto) 0.0 (0.0-0.4) X10*3/uL Baso # (Auto) 0.0 (0.0-0.2) X10*3/uL Abs Immat Gran (auto) 0.03 (0.00-0.03) X10*3/uL Absolute Neuts (auto) 4.2 (2.0-8.3) x10*3/uL Absolute Nucleated RBC 0.000 (0.0-0.012) X10*3/uL Nucleated RBC % (auto) 0.0 (0.0-0.2) /100WBC ESR (0-15) MM/HR Sodium 139 (135-145) mmol/L Potassium 4.6 (3.3-5.1) mmol/L Chloride 106 (96-108) mmol/L Carbon Dioxide 25 (22-29) mmol/L Anion Gap 13 (12-20) BUN 14 (9-16) mg/dL Creatinine 1.01 (0.5-1.4) mg/dL Estim Creat Clear Calc 122.4 Estimated GFR > 60 Random Glucose 126 H (60-115) mg/dL Lactic Acid (0.5-2.0) mmol/L Calcium 9.7 D (8.4-10.2) mg/dL Total Bilirubin 0.4 (0.0-1.0) mg/dL AST 49 H (5-37) U/L ALT 68 H (0-40) U/L Alkaline Phosphatase 68 (39-117) U/L Total Creatine Kinase (38-174) U/L C-Reactive Protein (< or = 0.50) mg/dL Total Protein 7.2 (6.5-8.0) g/dL Albumin 4.2 (3.5-5.0) g/dL Urine Color Urine Appearance Urine pH (5.0-8.0) Ur Specific [place] (1.005-1.025) Urine Protein (NEG-TRACE) MG/DL Urine Glucose (UA) (NEG) MG/DL Urine Ketones (NEG) MG/DL Urine Blood (NEG) Urine Nitrite (NEG) Ur Leukocyte Esterase (NEG) Urine Opiates Screen (Not Detect) Urine Fentanyl Screen (Not Detect) Ur Barbiturates Screen (Not Detect) Ur Phencyclidine Scrn (Not Detect) Ur Amphetamines Screen (Not Detect) U Benzodiazepines Scrn (Not Detect) Urine Cocaine Screen (Not Detect) U Marijuana (THC) Screen (Not Detect) Ethyl Alcohol < 10 mg/dL Influenza Type A (PCR) (Negative) Influenza Type B (PCR) (Negative) RSV RNA Qual (PCR) (Negative) SARS-CoV-2 RNA (RT-PCR) (Negative) 10/26/21 10/26/21 10/26/21 Range/Units 17:41 17:41 17:41 WBC (4.8-10.8) X10*3/uL RBC (4.60-5.80) X10*6/uL Hgb (14.0-18.0) g/dl Hct (42.0-52.0) % MCV (80.0-98.0) fL MCH (27.0-33.0) pg MCHC (31.0-36.0) g/dl RDW (11.0-16.0) % Plt Count (160-400) X10*3/uL MPV (9.4-12.4) fL Immature Gran % (Auto) (0.0-0.4) % Neut % (Auto) (45-73) % Lymph % (Auto) (20-40) % [place] % (Auto) (2-11) % Eos % (Auto) (0-4) % Baso % (Auto) (0-2) % Lymph # (Auto) (1.2-4.9) X10*3/uL [place] # (Auto) (0.1-1.2) X10*3/uL Eos # (Auto) (0.0-0.4) X10*3/uL Baso # (Auto) (0.0-0.2) X10*3/uL Abs Immat Gran (auto) (0.00-0.03) X10*3/uL Absolute Neuts (auto) (2.0-8.3) x10*3/uL Absolute Nucleated RBC (0.0-0.012) X10*3/uL Nucleated RBC % (auto) (0.0-0.2) /100WBC ESR (0-15) MM/HR Sodium (135-145) mmol/L Potassium (3.3-5.1) mmol/L Chloride (96-108) mmol/L Carbon Dioxide (22-29) mmol/L Anion Gap (12-20) BUN (9-16) mg/dL Creatinine (0.5-1.4) mg/dL Estim Creat Clear Calc Estimated GFR Random Glucose (60-115) mg/dL Lactic Acid 1.7 (0.5-2.0) mmol/L Calcium (8.4-10.2) mg/dL Total Bilirubin (0.0-1.0) mg/dL AST (5-37) U/L ALT (0-40) U/L Alkaline Phosphatase (39-117) U/L Total Creatine Kinase (38-174) U/L C-Reactive Protein (< or = 0.50) mg/dL Total Protein (6.5-8.0) g/dL Albumin (3.5-5.0) g/dL Urine Color Urine Appearance Urine pH (5.0-8.0) Ur Specific [place] (1.005-1.025) Urine Protein (NEG-TRACE) MG/DL Urine Glucose (UA) (NEG) MG/DL Urine Ketones (NEG) MG/DL Urine Blood (NEG) Urine Nitrite (NEG) Ur Leukocyte Esterase (NEG) Urine Opiates Screen Not Detected (Not Detect) Urine Fentanyl Screen Not Detected (Not Detect) Ur Barbiturates Screen Not Detected (Not Detect) Ur Phencyclidine Scrn Not Detected (Not Detect) Ur Amphetamines Screen Not Detected (Not Detect) U Benzodiazepines Scrn Not Detected (Not Detect) Urine Cocaine Screen Not Detected (Not Detect) U Marijuana (THC) Screen POSITIVE H (Not Detect) Ethyl Alcohol mg/dL Influenza Type A (PCR) NEGATIVE (Negative) Influenza Type B (PCR) NEGATIVE (Negative) RSV RNA Qual (PCR) NEGATIVE (Negative) SARS-CoV-2 RNA (RT-PCR) NEGATIVE (Negative) 10/26/21 10/26/21 10/26/21 Range/Units 17:41 17:41 18:54 WBC (4.8-10.8) X10*3/uL RBC (4.60-5.80) X10*6/uL Hgb (14.0-18.0) g/dl Hct (42.0-52.0) % MCV (80.0-98.0) fL MCH (27.0-33.0) pg MCHC (31.0-36.0) g/dl RDW (11.0-16.0) % Plt Count (160-400) X10*3/uL MPV (9.4-12.4) fL Immature Gran % (Auto) (0.0-0.4) % Neut % (Auto) (45-73) % Lymph % (Auto) (20-40) % [place] % (Auto) (2-11) % Eos % (Auto) (0-4) % Baso % (Auto) (0-2) % Lymph # (Auto) (1.2-4.9) X10*3/uL [place] # (Auto) (0.1-1.2) X10*3/uL Eos # (Auto) (0.0-0.4) X10*3/uL Baso # (Auto) (0.0-0.2) X10*3/uL Abs Immat Gran (auto) (0.00-0.03) X10*3/uL Absolute Neuts (auto) (2.0-8.3) x10*3/uL Absolute Nucleated RBC (0.0-0.012) X10*3/uL Nucleated RBC % (auto) (0.0-0.2) /100WBC ESR 2 (0-15) MM/HR Sodium (135-145) mmol/L Potassium (3.3-5.1) mmol/L Chloride (96-108) mmol/L Carbon Dioxide (22-29) mmol/L Anion Gap (12-20) BUN (9-16) mg/dL Creatinine (0.5-1.4) mg/dL Estim Creat Clear Calc Estimated GFR Random Glucose (60-115) mg/dL Lactic Acid (0.5-2.0) mmol/L Calcium (8.4-10.2) mg/dL Total Bilirubin (0.0-1.0) mg/dL AST (5-37) U/L ALT (0-40) U/L Alkaline Phosphatase (39-117) U/L Total Creatine Kinase 343 H (38-174) U/L C-Reactive Protein 0.24 (< or = 0.50) mg/dL Total Protein (6.5-8.0) g/dL Albumin (3.5-5.0) g/dL Urine Color YELLOW Urine Appearance CLEAR Urine pH 7.0 (5.0-8.0) Ur Specific [place] 1.020 (1.005-1.025) Urine Protein NEG (NEG-TRACE) MG/DL Urine Glucose (UA) NEG (NEG) MG/DL Urine Ketones 5 (NEG) MG/DL Urine Blood NEG (NEG) Urine Nitrite NEG (NEG) Ur Leukocyte Esterase NEG (NEG) Urine Opiates Screen (Not Detect) Urine Fentanyl Screen (Not Detect) Ur Barbiturates Screen (Not Detect) Ur Phencyclidine Scrn (Not Detect) Ur Amphetamines Screen (Not Detect) U Benzodiazepines Scrn (Not Detect) Urine Cocaine Screen (Not Detect) U Marijuana (THC) Screen (Not Detect) Ethyl Alcohol mg/dL Influenza Type A (PCR) (Negative) Influenza Type B (PCR) (Negative) RSV RNA Qual (PCR) (Negative) SARS-CoV-2 RNA (RT-PCR) (Negative) Discharge Plan Discharge Clinical Impression: Encounter for medical clearance for patient hold Patient Disposition: Home, Self-Care Instructions: Medical Clearance for Substance Abuse Treatment (ED) Additional Instructions: Your labs came back normal. Chest x-ray negative for pneumonia. Your influenza/COVID/RSV came back negative. Return to the ED for any chest pain, shortness of breath, altered mental status, abdominal pain, fevers, chills, diarrhea, blood in stool, headache, dizziness, slurred speech, facial droop, loss of vision, paralysis of extremities, or any other concerning symptoms. Please follow-up with your detox program and primary care provider. Prescriptions: No [facility] olanzapine 10 mg tablet 15 mg PO BID 0RF divalproex 500 mg tablet extended release 24 hr 1,000 mg PO BID 0RF fluoxetine 20 mg capsule 60 mg PO DAILY 0RF acetaminophen 500 mg Tablet 500 mg PO Q6H PRN (Reason: Pain) 0RF Hold Instructions: hold for PCP to assess ibuprofen 400 mg Tablet 400 mg PO Q6H PRN (Reason: Pain) 0RF nicotine (polacrilex) 4 mg gum 4 mg buccal Q2H Qty: 100 0RF naltrexone 50 mg tablet 50 mg PO DAILY Qty: 30 0RF Rx Instructions: Take 1/2 tab daily for 2 days then increase to one full tab daily Vivitrol 380 mg suspension,extended rel recon 380 mg IM Q4W Qty: 1 5RF Interventions: ED Discharge Assessment Last Done: 10/26/21 20:36 Discharge Date/Time: 10/26/21 20:36 Print Language: Irish
[2021-10-26 17:40] VITALS: BP 129/65; PULSE 110; RESP 18; TEMP 37.2; O2SAT 95
[2021-10-26 17:51] LABS: MANUAL DIFF FLAG NO
[2021-10-26] MEDS: 0.9 % Sodium Chloride 1,000 ML 999 ML IV ×2 (17:55)
[2021-10-26 17:57] LABS: Basophils Percent Auto 0.2 % (0-2); Eosinophils Percent Auto 0.2 % (0-4); Hematocrit 37.2 % (42.0-52.0); Hemoglobin 13.1 g/dl (14.0-18.0); Imm Gran Abs Auto 0.03 X10*3/uL (0.00-0.03); Imm Gran Pct Auto 0.5 % (0.0-0.4); Lymphocytes Percent Auto 17.8 % (20-40); Mean Corpuscular HGB Conc 35.2 g/dl (31.0-36.0); Mean Corpuscular Hemoglobin 32.9 pg (27.0-33.0); Mean Corpuscular Volume 93.5 fL (80.0-98.0); Mean Platelet Volume 8.7 fL (9.4-12.4); Monocytes Absolute Auto 0.4 X10*3/uL (0.1-1.2); Monocytes Percent Auto 7.3 % (2-11); Neutrophils Absolute Auto 4.2 x10*3/uL (2.0-8.3); Platelet Count 262 X10*3/uL (160-400); Red Blood Count 3.98 X10*6/uL (4.60-5.80); Red Cell Distribution Width 13.2 % (11.0-16.0); White Blood Count 5.7 X10*3/uL (4.8-10.8)
[2021-10-26 18:09] LABS: C Reactive Protein 0.24 mg/dL (< or = 0.50); Lactic Acid 1.7 mmol/L (0.5-2.0)
[2021-10-26 18:10] LABS: Ethanol < 10 mg/dL
[2021-10-26 18:11] LABS: Amphetamine Screen Urine Not Detected (Not Detect); Barbiturates, Urine Not Detected (Not Detect); Benzodiazepines Screen Urine Not Detected (Not Detect); Cannabinoid Screen Urine POSITIVE (Not Detect); Cocaine Screen Urine Not Detected (Not Detect); Fentanyl, urine Not Detected (Not Detect); Opiate Screen Urine Not Detected (Not Detect); Phencyclidine Screen Urine Not Detected (Not Detect)
[2021-10-26 18:13] LABS: Alanine Aminotransferase 68 U/L (0-40); Albumin Level 4.2 g/dL (3.5-5.0); Alkaline Phosphatase 68 U/L (39-117); Anion Gap 13 (12-20); Aspartate Amino Transferase 49 U/L (5-37); Bilirubin Total 0.4 mg/dL (0.0-1.0); Blood Urea Nitrogen 14 mg/dL (9-16); Calcium 9.7 mg/dL (8.4-10.2); Carbon Dioxide 25 mmol/L (22-29); Chloride 106 mmol/L (96-108); Creatinine Clr Calc Pharmacy 122.4; Estimated Glomerular Filt Rate > 60; Glucose Random 126 mg/dL (60-115); Potassium 4.6 mmol/L (3.3-5.1); Sodium 139 mmol/L (135-145); Total Protein 7.2 g/dL (6.5-8.0)
[2021-10-26 18:33] LABS: Influenza A PCR NEGATIVE (Negative); Influenza B PCR NEGATIVE (Negative); Resp Syncy Virus RNA Qual PCR NEGATIVE (Negative); SARS COV2 PCR INHOUSE NEGATIVE (Negative)
[2021-10-26 18:46] LABS: Erythrocyte Sedimentation Rate 2 MM/HR (0-15)
[2021-10-26 18:57] VITALS: BP 121/61; PULSE 104; RESP 20; TEMP 37.1; O2SAT 94
[2021-10-26 19:07] LABS: Appearance Urine CLEAR; Color Urine YELLOW; Glucose Urine UA NEG (NEG); Leukocyte Esterase Urine NEG (NEG); Nitrite Urine NEG (NEG); Urine Blood NEG (NEG); Urine Ketones 5 MG/DL (NEG); Urine Protein NEG (NEG-TRACE)
[2021-10-26 19:19] VITALS: BP 112/46; PULSE 99; RESP 20; O2SAT 95
[2021-10-26 20:20] VITALS: BP 117/59; PULSE 94; RESP 20; TEMP 36.6; O2SAT 95
== END 2021-10-26 20:36 | disposition home or self-care (01) ==
PROVIDERS: Physician Assistant; Emergency Provider Emergency Medicine Emergency Medical Services; PCP Internal Medicine
DX: Z02.2 Encounter for examination for admission to residential institution (principal); F11.10 Opioid abuse, uncomplicated; E86.0 Dehydration; Z20.822 Contact with and (suspected) exposure to COVID-19
CPT/HCPCS: 0241U; 36415; 71045; 80053; 80307; 81003; 82077; 82550; 83605; 85025; 85652; 86140; 87040; 96360; 99284; 99285

== ENCOUNTER 2021-11-02 12:03 | Emergency (ER) | payer MEDICARE, MEDICAID, SELFPAY ==
[2021-11-02 12:31] VITALS: BP 134/76; PULSE 72; O2SAT 97
[2021-11-02 12:32] VITALS: BP 157/69; PULSE 97; RESP 18; TEMP 36.8; O2SAT 93
--- NOTE | 2021-11-02 12:36 | ED_ITS ---
HPI - Altered Mental Status General Chief Complaint: ETOH/Substance Use Stated Complaint: CONFUSION S/P MARIJUANA USE PER RICARDO Time Seen by Provider: 11/02/21 12:21 Source: patient, EMS and old records reviewed Mode of arrival: EMS Limitations: no limitations History of Present Illness HPI narrative: 31 y/o male with history of schizoaffective disorder, opiate use disorder, substance abuse who presents to the ER with confusion after smoking marijuana. [facility] responded to a male sleeping in the grass. Patient was awoken and was confused. He admits to smoking marijuana earlier today. He denies any othe r drug use. He denies any fall or injury. He states he feels happy and calm. 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 Initial heart rate in the [facility] was thought to be 223 was brought to the main ER. MD complaint: confusion Onset (ago): hour(s) Severity: mild Consistency of symptoms: waxing and waning Context: drug abuse Associated symptoms: denies other symptoms Related Data Home Medications Medication Instructions Recorded Confirmed acetaminophen 500 mg tablet 500 mg PO Q6H PRN 02/04/21 02/04/21 divalproex 500 mg tablet,extended 1,000 mg PO BID 02/04/21 02/04/21 release 24 hr fluoxetine 20 mg capsule 60 mg PO DAILY 02/04/21 02/08/21 ibuprofen 400 mg tablet 400 mg PO Q6H PRN 02/04/21 02/04/21 olanzapine 10 mg tablet 15 mg PO BID 02/04/21 02/04/21 Previous Rx's Medication Instructions Recorded nicotine (polacrilex) 4 mg gum 4 mg BUCCAL Q2H #100 ea 02/08/21 naltrexone 50 mg tablet 50 mg PO DAILY #30 tab 02/10/21 naltrexone microspheres 380 mg 380 mg IM Q4W #1 ea 02/17/21 intramuscular suspension,extended release (Vivitrol) Allergies Allergy/AdvReac Type Severity Reaction Status Date / Time trazodone [Trazodone] Allergy Severe SWOLLEN Verified 04/27/21 10:06 TONGUE amoxicillin [Amoxicillin] Allergy Unknown UNKNOWN Verified 04/27/21 10:06 haloperidol [From HALDOL] Allergy Unknown UNKNOWN Verified 04/27/21 10:06 Amoxicillin Allergy Unknown Unknown Uncoded 12/30/20 20:21 Review of Systems Review of Systems: Constitutional: No Fever, No Chills ENT/Mouth: No sore throat, No Rhinorrhea Eyes: No vision changes Cardiovascular: No Chest Pain, No SOB, No Orthopnea, No Edema Respiratory: No Cough, No Sputum, No Wheezing, No dyspnea Gastrointestinal: No Nausea, No Vomiting, No Diarrhea, No abdominal Pain Genitourinary: No Dysuria, No Urinary Frequency, No Hematuria Musculoskeletal: No joint pain, No Myalgias Skin: No Skin Lesions, No rash Neuro: No Weakness, No Numbness, No Dizziness, No Headache Psych: No Anxiety/Panic, No Depression Heme/Lymph: No Bruising, No Lymphadenopathy PMFSH Past Medical History Medical History Anxiety Schizoaffective disorder Substance abuse Family History Family History Other Family history non-contributory Social History Social History (Updated 05/06/21 @ 01:03 by Brunilda Rogers DO) Household Members: None and Other Housing: Other Housing Other:: [facility] Alcohol intake: unknown Patient Tobacco Use Status: Never used Tobacco Tobacco use type: Cigarette Cigarette Packs Per Day: 1 Cigarettes Per Day: 20.0 Years Smoked: 11 Second Hand Smoke Exposure: Yes Use of substances other than those prescribed or required for medical reasons: Yes Substance Use Type: Marijuana Advance Directives: No Advance Directives Information Provided: No service: No Sexual orientation: Straight/Heterosexual Physical Exam ED Vital Signs: Vital Signs - 24 hr 11/02/21 12:32 11/02/21 12:59 Temperature 98.2 F 97.7 F Pulse Rate 97 117 H Respiratory Rate 18 18 Blood Pressure 157/69 H 119/50 L Pulse Oximetry 93 95 BMI result Body Mass Index 0.0 Appearance: Alert. Oriented X3. No acute distress. Eyes: Pupils equal, round and sluggish to respond bilaterally. ENT: Pharynx normal. Neck: Normal inspection. Neck supple. CVS: Tachycardic, regular rhythm. Pulses normal. Respiratory: No respiratory distress. Breath sounds normal. Abdomen: Soft and nontender. +BS x4 Skin: Skin warm and dry. Normal skin color. Normal skin turgor. No rashes. Extremities: No lower extremity edema. No signs of IV drug use Neuro: Oriented X 3. No motor deficit. No sensory deficit. Course Course Course Narrative: 31-year-old male with history of substance abuse, schizoaffective disorder presents to the ER via EMS after he was found sleeping in the grass. He was woken and was confused. Admits to smoking marijuana prior to falling asleep. Denies any injury or trauma. He denies any other substance use. 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 Initially heart rate thought to be 223 so he is brought to the main ER. On telemetry is heart rate is 113. He is calm and cooperative. Reevaluation(s) Reevaluation #1: Patient stable for d/c. Awake, alert and appropriate. Steady gait. Stable for d/c. Critical Care Time Critical Care Time Critical Care Time: No Discharge Plan Discharge Clinical Impression: Marijuana intoxication Patient Disposition: Home, Self-Care Instructions: Medicinal Use of Cannabis (ED) Additional Instructions: Do not use illicit drugs Follow up with your doctors as needed If you develop new or worsening symptoms call 911 or come back to the ER for further evaluation. Prescriptions: No [facility] olanzapine 10 mg tablet 15 mg PO BID 0RF divalproex 500 mg tablet extended release 24 hr 1,000 mg PO BID 0RF fluoxetine 20 mg capsule 60 mg PO DAILY 0RF acetaminophen 500 mg Tablet 500 mg PO Q6H PRN (Reason: Pain) 0RF Hold Instructions: hold for PCP to assess ibuprofen 400 mg Tablet 400 mg PO Q6H PRN (Reason: Pain) 0RF nicotine (polacrilex) 4 mg gum 4 mg buccal Q2H Qty: 100 0RF naltrexone 50 mg tablet 50 mg PO DAILY Qty: 30 0RF Rx Instructions: Take 1/2 tab daily for 2 days then increase to one full tab daily Vivitrol 380 mg suspension,extended rel recon 380 mg IM Q4W Qty: 1 5RF
--- NOTE | 2021-11-02 12:41 | PC.NURSE ---
Pt presents to ER via [facility], pt appears confused, not forthcoming with information. noticeable odor of marijuana. Author attempted to obtain additional information regarding substance use, denies marijuana came from a dispensary and would not disclose where it was procured. Pt denied other drug use. However pt did disclose to author that he used to use heroin. While in triage, pt SpO2 was 93% on RA, HR 227 bpm. Pt was placed on 2L via NC, pt HR decreased to 118 then back up to 200 BPM. Pt was transferred to main ED, HR at time of transfer 117bpm
[2021-11-02 12:59] VITALS: BP 119/50; PULSE 117; RESP 18; TEMP 36.5; O2SAT 95
== END 2021-11-02 14:01 | disposition home or self-care (01) ==
PROVIDERS: Emergency Provider Emergency Medicine
DX: F12.929 Cannabis use, unspecified with intoxication, unspecified (principal); F25.9 Schizoaffective disorder, unspecified; F17.210 Nicotine dependence, cigarettes, uncomplicated
CPT/HCPCS: 99282; 99284

== ENCOUNTER 2021-11-28 10:10 | Outpatient (REF) | payer MEDICARE, MEDICAID, SELFPAY ==
--- NOTE | 2021-11-28 12:03 | MHC.AU.HFU ---
Hearing Instrument Follow-Up- Binaural Date of Visit: 11/28/21 Right Ear: Mold Breaker: Phonak Model: Audeo P70-13T Serial Number: [id number] Repair Warranty: 12/29/2023 Loss and Damage Warranty: 12/29/2023 Battery Size: 13 Color: Sand Beige Rasper Machine Operator: Size 2 UP Type of Mold: C-Shell SN: [id number] Warranty: 01/11/2022 Type of Wax Guard: Cerustop Dispensed By: [facility] Date of Fittin12/13/2020 Left Ear:Mold Breaker: Phonak Model: AUDEO P 70-13T Serial Number: [id number] Repair Warranty: 12/29/2023 Loss and Damage Warranty: 12/29/2023 Battery Size: 13 Color: Sand Beige Rasper Machine Operator: #2 UP Type of Mold: Phonak Clear Canal C-Shell #[id number] warranty expires 01/29/21 Type of Wax Guard: CeruStop Dispensed By: [facility] Date of Fittin12/02/2020 Follow-Up Summary: Left aid emergency department technician wire broken and pin fell out of aid so could not provide a new emergency department technician and dome while integrated c-shell is being repaired. Sending the left aid and c-shell for repair under warranty. Provided an old Phonak Audeo V 90-13 #[id number] from the drawer above the hearing aid sink to use with #2 Power emergency department technician and medium power dome. Cleaned the right aid, changed wax guard with improved sound quality. Performed cerumen removal for the left ear without complication. Steve reports he is hearing better with the 2 aids now. Right ear otoscopy indicated the canal is red, but no occluding cerumen. Steve says he does not feel any pain in the ear, but will try to pay attention if pain does develop. Paired the right Audeo P aid to Steve's [employer] Cell Phone and demonstrated how to listen to his music through the hearing aid bluetooth. He was VERY happy to be listening to music through his hearing aid. Patient extensively discussed the problems he is having with people from his Rehab Care Home - [facility] in [place] - and his mother not understanding the significance of his hearing loss and the difficulties he has with understanding speech. He is very depressed and getting in trouble with the staff because they think he is purposely not listening or saying he can't understand, yet he responds to them. Also tends to get in trouble when he raises his voice when he is not wearing one or both hearing aids because he cannot hear himself talking and automatically increases his voice level. Steve signed a release of information to contact the Accountant Bookkeeper and his mother. I would like to schedule an hour appointment when the left aid repair is received. I plan to use the Hearing Loss Simulator and provide counseling to the Order Worker and his mother about the hearing loss, realistic expectations, and communication strategies. Will contact Order Worker and mother now to talk about meeting together and find times which may work for everyone. Recommendations: Give chart to Megan when repair in. WILL SCHEDULE APPOINTMENT WITH STEVE, CHIEF CLINICAL OFFICER, AND HIS MOTHER Diagnosis Code(s):Primary Diagnosis: H90.3 Bilateral Sensorineural Hearing Loss Services Performed:SELF Non-Quantity Charges: HACHECKB (MH>1 yr or new to us) Face to face appointment Signature:Provider: Khanh Dumont, CCC-A
== END 2021-11-28 10:11 | disposition home or self-care (01) ==
LOC: HO.HAP 10:10
PROVIDERS: Visit Provider Internal Medicine
DX: Z46.1 Encounter for fitting and adjustment of hearing aid (principal); H90.3 Sensorineural hearing loss, bilateral
CPT/HCPCS: 92593

== ENCOUNTER 2021-12-15 10:33 | Outpatient (REF) | payer MEDICARE, MEDICAID, SELFPAY ==
--- NOTE | 2021-12-15 16:16 | MHC.AU.HFU ---
Hearing Instrument Follow-Up- Binaural Date of Visit: 12/15/21 Right Ear: Faith Healer: Phonak Model: Audeo P70-13T Serial Number: [id number] Repair Warranty: 12/29/2023 Loss and Damage Warranty: 12/29/2023 Battery Size: 13 Color: Sand Beige Chief Sustainability Officer: Size 2 UP Type of Mold: C-Shell SN: [id number] Warranty: 01/11/2022 Type of Wax Guard: Cerustop Dispensed By: [facility] Date of Fittin12/13/2020 Left Ear: Faith Healer: Phonak Model: AUDEO P 70-13T Serial Number: [id number] Repair Warranty: 12/29/2023 Loss and Damage Warranty: 12/29/2023 Battery Size: 13 Color: Sand Beige Chief Sustainability Officer: #2 UP Type of Mold: Phonak Clear Canal C-Shell #[id number] warranty expires 01/29/21 Type of Wax Guard: CeruStop Dispensed By: [facility] Date of Fittin12/02/2020 Follow-Up Summary: Fit the repaired left hearing aid and programmed with the right aid. Patient reports much improved hearing ability while in office. Reviewed care of the hearing aids and how to insert/remove aids to reduce the amount of repairs. Today's appointment was also meant to be with Kyler's accounting advisory services manager and staff for counseling about Kyler's hearing loss and how to try to improve his understanding of verbal information as Kyler expressed significant concerns and frustrations at the last office visit. One staff member brought Kyler to today's appointment, but no one else from the detention came. Discussed further with Kyler today if he indeed wanted to pursue the meeting originally planned for today at a different time. Kyler reports he will be moving into his own apartment within the Rehab program within the next few months. He expects he will not have the same communication frustrations when this transition takes place and does not want the group meeting to take place at this time. Discussed this with the staff member who drove Kyler today. Kyler and his team will discuss and schedule an appointment for staff counseling if Kyler wants to pursue. Handouts are in the chart if the meeting takes place. Recommendations: Hearing instrument follow-up or maintenance as needed. Please contact our clinic with any questions or concerns. Diagnosis Code(s):Primary Diagnosis: H90.3 Bilateral Sensorineural Hearing Loss Services Performed:SELF Non-Quantity Charges: HACHECKB (MH>1 yr or new to us) Face to face appointment Signature: Provider: Khanh Dumont, CCC-A
== END 2021-12-15 10:34 | disposition home or self-care (01) ==
LOC: HO.HAP 10:33
PROVIDERS: Visit Provider Internal Medicine
DX: Z46.1 Encounter for fitting and adjustment of hearing aid (principal); H90.3 Sensorineural hearing loss, bilateral
CPT/HCPCS: 92593

== ENCOUNTER 2022-03-08 14:48 | Outpatient (REF) | payer MEDICARE, MEDICAID, SELFPAY ==
--- NOTE | 2022-03-08 15:24 | MHC.AU.HFU ---
Hearing Instrument Follow-Up- Binaural Date of Visit: 03/08/22 Right Ear: Sports Physician: Phonak Model: Mobyparkeo P70-13T Serial Number: [id number] Repair Warranty: 12/29/2023 Loss and Damage Warranty: 12/29/2023 Battery Size: 13 Type of Mold: C-Shell SN: [id number] Warranty: 01/11/2022 Type of Wax Guard: Cerustop Left Ear: Sports Physician: Phonak Model: MegaBitsEO P 70-13T Serial Number: [id number] Repair Warranty: 12/29/2023 Loss and Damage Warranty: 12/29/2023 Battery Size: 13 Type of Mold: Phonak Clear Canal C-Shell #[id number] warranty expires 01/29/21 Type of Wax Guard: CeruStop Follow-Up Summary: Patient requested a gain increase on the left hearing aid. He reports that since he got it back in December it sounds too soft. He also reports he was sweating one day, and the right hearing aid stopped working. He took it off and let it air out, but it has not helped. Both hearing aids were inspected. Both cShells did not have wax guards in place. Wax was inside the left cShell/extras casting director. The wax was suctioned out of the cShell. Both hearing aids were placed in the electric skein yarn drier for several minutes. The left side is amplifying clearly. The right side is still not turning on. The right side was sent to [facility] for repair under warranty. Overall gain was raised significantly on the left hearing aid, until patient said it was perfect . Patient is pleased with the adjustments, but it is concerning it had to be turned up so much. When patient picks up the repaired right hearing aid, otoscopy should be performed and left hearing aid should be re-inspected. Recommendations: Patient will be contacted when materials have arrived. Diagnosis Code(s): Primary Diagnosis: H90.3 Bilateral Sensorineural Hearing Loss Signature: Provider: Khanh Farley, [facility]
== END 2022-03-08 14:49 | disposition home or self-care (01) ==
LOC: HO.HAP 14:48
PROVIDERS: Visit Provider Internal Medicine
DX: Z46.1 Encounter for fitting and adjustment of hearing aid (principal); H90.3 Sensorineural hearing loss, bilateral
CPT/HCPCS: 92593

== ENCOUNTER 2022-03-27 14:58 | Emergency (ER) | payer MEDICARE, MEDICAID, SELFPAY ==
[2022-03-27 15:14] VITALS: BP 151/64; PULSE 97; RESP 18; TEMP 35.7; O2SAT 100; BMI 36.9
[2022-03-27 15:33] LABS: MANUAL DIFF FLAG NO
[2022-03-27 15:34] LABS: Eosinophils Percent Auto 0.5 % (0-4); Hematocrit 37.9 % (42.0-52.0); Hemoglobin 13.5 g/dl (14.0-18.0); Imm Gran Abs Auto 0.02 X10*3/uL (0.00-0.03); Imm Gran Pct Auto 0.5 % (0.0-0.4); Lymphocytes Absolute Auto 1.3 X10*3/uL (1.2-4.9); Lymphocytes Percent Auto 34.9 % (20-40); Mean Corpuscular HGB Conc 35.6 g/dl (31.0-36.0); Mean Corpuscular Hemoglobin 32.3 pg (27.0-33.0); Mean Corpuscular Volume 90.7 fL (80.0-98.0); Mean Platelet Volume 9.2 fL (9.4-12.4); Monocytes Absolute Auto 0.4 X10*3/uL (0.1-1.2); Neutrophils Absolute Auto 1.9 x10*3/uL (2.0-8.3); Neutrophils Percent Auto 53.1 % (45-73); Platelet Count 261 X10*3/uL (160-400); Red Blood Count 4.18 X10*6/uL (4.60-5.80); Red Cell Distribution Width 12.9 % (11.0-16.0); White Blood Count 3.6 X10*3/uL (4.8-10.8)
[2022-03-27 15:47] LABS: Acetone, serum QL Negative (Negative)
[2022-03-27 15:47] LABS: Glucose, Whole Blood > 600 mg/dL (60-115)
[2022-03-27 15:48] LABS: Glucose, Whole Blood > 600 mg/dL (60-115)
[2022-03-27 15:48] LABS: COVID-19 Test Negative (Negative)
[2022-03-27 15:55] LABS: Alanine Aminotransferase 73 U/L (0-40); Albumin Level 4.3 g/dL (3.5-5.0); Alkaline Phosphatase 109 U/L (39-117); Anion Gap 17 (12-20); Aspartate Amino Transferase 55 U/L (5-37); Bilirubin Direct 0.2 mg/dL (0.0-0.5); Bilirubin Total 0.6 mg/dL (0.0-1.0); Blood Urea Nitrogen 15 mg/dL (9-16); Calcium 9.7 mg/dL (8.4-10.2); Carbon Dioxide 25 mmol/L (22-29); Chloride 92 mmol/L (96-108); Creatinine Clr Calc Pharmacy 81.2; Estimated Glomerular Filt Rate 49; Glucose Random 670 mg/dL (60-115); Potassium 4.7 mmol/L (3.3-5.1); Sodium 129 mmol/L (135-145); Total Protein 7.9 g/dL (6.5-8.0)
[2022-03-27 16:00] VITALS: BP 153/80; PULSE 87; RESP 18; TEMP 36.6; O2SAT 95
--- NOTE | 2022-03-27 16:07 | ED.RECABL ---
HPI - Recheck/Abnormal Lab/Rx General Chief Complaint: Recheck/Abnormal Lab/Rx Stated Complaint: high blood sugar Time Seen by Provider: 03/27/22 16:00 Source: patient Mode of arrival: ambulatory Limitations: no limitations History of Present Illness HPI narrative: 31-year-old male presents from [place] urgent care for urinary incontinence and elevated blood sugar. Patient presents with his alf staff. Patient has not complained of symptoms indicating hyperglycemia in the past few weeks, and reported urinary incontinence this morning. Patient's house staff noted fruity breath, and brought patient to the urgent care for evaluation. Patient had labs drawn at urgent care, and noted to have an elevated blood sugar over 600. Patient was referred to the emergency department for evaluation. MD complaint: abnormal lab Context: other (Refer to emergency department from urgent care for elevated glucose) Associated symptoms: other (Urinary incontinence) Related Data Home Medications Medication Instructions Recorded Confirmed acetaminophen 500 mg tablet 500 mg PO Q6H PRN Pain 02/04/21 02/04/21 divalproex 500 mg tablet,extended 1,000 mg PO BID 02/04/21 02/04/21 release 24 hr fluoxetine 20 mg capsule 60 mg PO DAILY 02/04/21 02/08/21 ibuprofen 400 mg tablet 400 mg PO Q6H PRN Pain 02/04/21 02/04/21 olanzapine 10 mg tablet 15 mg PO BID 02/04/21 02/04/21 Previous Rx's Medication Instructions Recorded nicotine (polacrilex) 4 mg gum 4 mg buccal Q2H #100 ea 02/08/21 naltrexone 50 mg tablet 50 mg PO DAILY #30 tabs 02/10/21 naltrexone microspheres 380 mg 380 mg IM Q4W #1 ea 02/17/21 intramuscular suspension,extended release (Vivitrol) metformin 850 mg tablet 850 mg PO BID 30 days #60 tabs 03/27/22 Allergies Allergy/AdvReac Type Severity Reaction Status Date / Time trazodone [Trazodone] Allergy Severe SWOLLEN Verified 04/27/21 10:06 TONGUE amoxicillin [Amoxicillin] Allergy Unknown UNKNOWN Verified 04/27/21 10:06 haloperidol [From HALDOL] Allergy Unknown UNKNOWN Verified 04/27/21 10:06 Amoxicillin Allergy Unknown Unknown Uncoded 12/30/20 20:21 Review of Systems Review of Systems: Constitutional: No Fever, No Chills ENT/Mouth: No Ear Pain, No Hoarseness, No sore throat Eyes: No Eye Pain, No Swelling, No Redness, No Foreign Body Cardiovascular: No Chest Pain, No SOB Respiratory: No Cough, No Dyspnea Gastrointestinal: No Nausea, No Vomiting, No Diarrhea, No abdominal Pain Genitourinary: Positive incontinence, No Dysuria, No Hematuria Musculoskeletal: No joint pain, No Myalgias, No Joint Swelling Skin: No Skin lacerations, No rash Neuro: No Weakness, No Numbness, No Paresthesias, No Loss of Consciousness, No Dizziness, No Headache Psych: No Anxiety/Panic, No Depression Heme/Lymph: no easy bruising, no Lymphadenopathy Endocrine: No Polyuria, No Polydipsia Yes all other systems are reviewed and are negative REPLACED BY [facility] Past Medical History Attestation statement: The following information was validated with the patient. Source: old records reviewed Medical History Anxiety Schizoaffective disorder Substance abuse Family History Family History Other Family history non-contributory Social History Social History Household Members: None and Other Housing: Other Housing Other:: [facility] Alcohol intake: unknown Patient Tobacco Use Status: Never used Tobacco Tobacco use type: Cigarette Cigarette Packs Per Day: 1 Cigarettes Per Day: 20.0 Years Smoked: 11 Second Hand Smoke Exposure: Yes Substance Use Type: Marijuana Advance Directives: No Advance Directives Information Provided: No service: No Sexual orientation: Straight/Heterosexual Physical Exam Vital Signs: Vital Signs: Last Vital Signs Temp 97.0 F 03/27/22 18:36 Pulse 85 03/27/22 19:32 Resp 16 03/27/22 19:32 BP 125/75 03/27/22 19:32 Pulse Ox 96 03/27/22 19:32 O2 Del Method 03/27/22 19:32 BMI result Body Mass Index 36.9 Appearance: Alert. Oriented X3. No acute distress. Eyes: Pupils equal, round and reactive to light. ENT: Pharynx normal. Neck: Normal inspection. Neck supple. CVS: Normal heart rate and rhythm. Pulses normal. Respiratory: No respiratory distress. Breath sounds normal. Abdomen: Soft and nontender. Skin: Skin warm and dry. Normal skin color. Normal skin turgor. Extremities: No lower extremity edema. Gait well-balanced well coordinated. Neuro: No motor deficit. No sensory deficit. Cranial nerves 2-12 intact. Course Course Course Narrative: 31-year-old male with past medical history of schizophrenia, and substance abuse disorder currently sober presents with elevated glucose of 670. He presents with his house staff, he lives in a alf and has been doing very well be physically as well emotionally. Has been sober for several months. He reported incontinence to his house staff earlier today, which is abnormal for him. House staff noted fruity breath, and brought patient to urgent care for evaluation. Labs at urgent care indicated an elevated glucose, labs while he was in the emergency department waiting room were obtained and indicates OB glucose of 670 with creatinine of 1.65. Plan of care is to treat for hyperglycemia and mild AZAR. 16:08 corrected sodium 138 with blood sugar of 670. Patient is alert and oriented, per baseline. Will give insulin 10 units subQ, 10 units IV, 2 L of normal saline, potassium 4.7, gap 17, creatinine 1.65, baseline creatinine is 1.01, H&H is 13.5/37.9 which is consistent with his prior values dating back to 2019. Considering there is no gap, acetone is negative, patient is not in DKA. Patient does have even unlabored respirations and is speaking in complete sentences. 17:21 patient doing well, blood sugars are trending down 19:36 creatinine 1.15, markedly improved, glucose 311. Plan of care is to discharge home with new prescription for metformin and have patient follow-up with primary care physician. MDM - Recheck/Abnormal Lab/Rx MDM Narrative Medical decision making narrative: Hyperglycemia Medical Records Attestation: I reviewed the patient's medical records. Lab Data Attestation: I reviewed the patient's lab results. Result diagrams: 03/27/22 15:27 03/27/22 19:07 Labs: Lab Results 03/27/22 03/27/22 03/27/22 Range/Units 15:16 15:19 15:24 WBC (4.8-10.8) X10*3/uL RBC (4.60-5.80) X10*6/uL Hgb (14.0-18.0) g/dl Hct (42.0-52.0) % MCV (80.0-98.0) fL MCH (27.0-33.0) pg MCHC (31.0-36.0) g/dl RDW (11.0-16.0) % Plt Count (160-400) X10*3/uL MPV (9.4-12.4) fL Immature Gran % (Auto) (0.0-0.4) % Neut % (Auto) (45-73) % Lymph % (Auto) (20-40) % [place] % (Auto) (2-11) % Eos % (Auto) (0-4) % Baso % (Auto) (0-2) % Lymph # (Auto) (1.2-4.9) X10*3/uL [place] # (Auto) (0.1-1.2) X10*3/uL Eos # (Auto) (0.0-0.4) X10*3/uL Baso # (Auto) (0.0-0.2) X10*3/uL Abs Immat Gran (auto) (0.00-0.03) X10*3/uL Absolute Neuts (auto) (2.0-8.3) x10*3/uL Absolute Nucleated RBC (0.0-0.012) X10*3/uL Nucleated RBC % (auto) (0.0-0.2) /100WBC Sodium (135-145) mmol/L Potassium (3.3-5.1) mmol/L Chloride (96-108) mmol/L Carbon Dioxide (22-29) mmol/L Anion Gap (12-20) BUN (9-16) mg/dL Creatinine (0.5-1.4) mg/dL Estim Creat Clear Calc Estimated GFR POC Glucose > 600 H* > 600 H* (60-115) mg/dL Random Glucose (60-115) mg/dL Calcium (8.4-10.2) mg/dL Total Bilirubin (0.0-1.0) mg/dL Direct Bilirubin (0.0-0.5) mg/dL AST (5-37) U/L ALT (0-40) U/L Alkaline Phosphatase (39-117) U/L Total Protein (6.5-8.0) g/dL Albumin (3.5-5.0) g/dL Urine Color Urine Appearance Urine pH (5.0-9.0) Ur Specific [place] (1.005-1.025) Urine Protein (Neg-Trace) mg/dL Urine Glucose (UA) (Negative) mg/dL Urine Ketones (Negative) mg/dL Urine Blood (Negative) Urine Nitrite (Negative) Ur Leukocyte Esterase (Negative) Urine RBC (0-2) /HPF Urine WBC (0-5) /HPF Ur Squamous Epith Cells (0-2) /HPF Urine Bacteria (None Seen) Hyaline Casts (0-2) /LPF Acetone, Qual (Negative) COVID-19 (JOAN) Negative (Negative) COVID-19 Clin Com See Note 03/27/22 03/27/22 03/27/22 Range/Units 15:27 15:27 16:18 WBC 3.6 L (4.8-10.8) X10*3/uL RBC 4.18 L (4.60-5.80) X10*6/uL Hgb 13.5 L (14.0-18.0) g/dl Hct 37.9 L (42.0-52.0) % MCV 90.7 (80.0-98.0) fL MCH 32.3 (27.0-33.0) pg MCHC 35.6 (31.0-36.0) g/dl RDW 12.9 (11.0-16.0) % Plt Count 261 (160-400) X10*3/uL MPV 9.2 L (9.4-12.4) fL Immature Gran % (Auto) 0.5 H (0.0-0.4) % Neut % (Auto) 53.1 (45-73) % Lymph % (Auto) 34.9 (20-40) % [place] % (Auto) 11.0 (2-11) % Eos % (Auto) 0.5 (0-4) % Baso % (Auto) 0.0 (0-2) % Lymph # (Auto) 1.3 (1.2-4.9) X10*3/uL [place] # (Auto) 0.4 (0.1-1.2) X10*3/uL Eos # (Auto) 0.0 (0.0-0.4) X10*3/uL Baso # (Auto) 0.0 (0.0-0.2) X10*3/uL Abs Immat Gran (auto) 0.02 (0.00-0.03) X10*3/uL Absolute Neuts (auto) 1.9 L (2.0-8.3) x10*3/uL Absolute Nucleated RBC 0.000 (0.0-0.012) X10*3/uL Nucleated RBC % (auto) 0.0 (0.0-0.2) /100WBC Sodium 129 L (135-145) mmol/L Potassium 4.7 (3.3-5.1) mmol/L Chloride 92 L (96-108) mmol/L Carbon Dioxide 25 (22-29) mmol/L Anion Gap 17 (12-20) BUN 15 (9-16) mg/dL Creatinine 1.65 H (0.5-1.4) mg/dL Estim Creat Clear Calc 81.2 Estimated GFR 49 POC Glucose 545 H* (60-115) mg/dL Random Glucose 670 H* (60-115) mg/dL Calcium 9.7 (8.4-10.2) mg/dL Total Bilirubin 0.6 (0.0-1.0) mg/dL Direct Bilirubin 0.2 (0.0-0.5) mg/dL AST 55 H (5-37) U/L ALT 73 H (0-40) U/L Alkaline Phosphatase 109 D (39-117) U/L Total Protein 7.9 (6.5-8.0) g/dL Albumin 4.3 (3.5-5.0) g/dL Urine Color Urine Appearance Urine pH (5.0-9.0) Ur Specific [place] (1.005-1.025) Urine Protein (Neg-Trace) mg/dL Urine Glucose (UA) (Negative) mg/dL Urine Ketones (Negative) mg/dL Urine Blood (Negative) Urine Nitrite (Negative) Ur Leukocyte Esterase (Negative) Urine RBC (0-2) /HPF Urine WBC (0-5) /HPF Ur Squamous Epith Cells (0-2) /HPF Urine Bacteria (None Seen) Hyaline Casts (0-2) /LPF Acetone, Qual Negative (Negative) COVID-19 (JOAN) (Negative) COVID-19 Clin Com 03/27/22 03/27/22 03/27/22 Range/Units 16:19 17:30 18:14 WBC (4.8-10.8) X10*3/uL RBC (4.60-5.80) X10*6/uL Hgb (14.0-18.0) g/dl Hct (42.0-52.0) % MCV (80.0-98.0) fL MCH (27.0-33.0) pg MCHC (31.0-36.0) g/dl RDW (11.0-16.0) % Plt Count (160-400) X10*3/uL MPV (9.4-12.4) fL Immature Gran % (Auto) (0.0-0.4) % Neut % (Auto) (45-73) % Lymph % (Auto) (20-40) % [place] % (Auto) (2-11) % Eos % (Auto) (0-4) % Baso % (Auto) (0-2) % Lymph # (Auto) (1.2-4.9) X10*3/uL [place] # (Auto) (0.1-1.2) X10*3/uL Eos # (Auto) (0.0-0.4) X10*3/uL Baso # (Auto) (0.0-0.2) X10*3/uL Abs Immat Gran (auto) (0.00-0.03) X10*3/uL Absolute Neuts (auto) (2.0-8.3) x10*3/uL Absolute Nucleated RBC (0.0-0.012) X10*3/uL Nucleated RBC % (auto) (0.0-0.2) /100WBC Sodium (135-145) mmol/L Potassium (3.3-5.1) mmol/L Chloride (96-108) mmol/L Carbon Dioxide (22-29) mmol/L Anion Gap (12-20) BUN (9-16) mg/dL Creatinine (0.5-1.4) mg/dL Estim Creat Clear Calc Estimated GFR POC Glucose 375 H* 309 H (60-115) mg/dL Random Glucose (60-115) mg/dL Calcium (8.4-10.2) mg/dL Total Bilirubin (0.0-1.0) mg/dL Direct Bilirubin (0.0-0.5) mg/dL AST (5-37) U/L ALT (0-40) U/L Alkaline Phosphatase (39-117) U/L Total Protein (6.5-8.0) g/dL Albumin (3.5-5.0) g/dL Urine Color Yellow Urine Appearance Clear Urine pH 6.5 (5.0-9.0) Ur Specific [place] >= 1.030 H (1.005-1.025) Urine Protein Negative (Neg-Trace) mg/dL Urine Glucose (UA) >=1000 H (Negative) mg/dL Urine Ketones Negative (Negative) mg/dL Urine Blood Negative (Negative) Urine Nitrite Negative (Negative) Ur Leukocyte Esterase Negative (Negative) Urine RBC 0-2 (0-2) /HPF Urine WBC 0-5 (0-5) /HPF Ur Squamous Epith Cells 0-2 (0-2) /HPF Urine Bacteria None Seen (None Seen) Hyaline Casts 0-2 (0-2) /LPF Acetone, Qual (Negative) COVID-19 (JOAN) (Negative) COVID-19 Clin Com 03/27/22 03/27/22 03/27/22 Range/Units 18:52 19:07 19:28 WBC (4.8-10.8) X10*3/uL RBC (4.60-5.80) X10*6/uL Hgb (14.0-18.0) g/dl Hct (42.0-52.0) % MCV (80.0-98.0) fL MCH (27.0-33.0) pg MCHC (31.0-36.0) g/dl RDW (11.0-16.0) % Plt Count (160-400) X10*3/uL MPV (9.4-12.4) fL Immature Gran % (Auto) (0.0-0.4) % Neut % (Auto) (45-73) % Lymph % (Auto) (20-40) % [place] % (Auto) (2-11) % Eos % (Auto) (0-4) % Baso % (Auto) (0-2) % Lymph # (Auto) (1.2-4.9) X10*3/uL [place] # (Auto) (0.1-1.2) X10*3/uL Eos # (Auto) (0.0-0.4) X10*3/uL Baso # (Auto) (0.0-0.2) X10*3/uL Abs Immat Gran (auto) (0.00-0.03) X10*3/uL Absolute Neuts (auto) (2.0-8.3) x10*3/uL Absolute Nucleated RBC (0.0-0.012) X10*3/uL Nucleated RBC % (auto) (0.0-0.2) /100WBC Sodium 136 (135-145) mmol/L Potassium 4.0 (3.3-5.1) mmol/L Chloride 100 (96-108) mmol/L Carbon Dioxide 26 (22-29) mmol/L Anion Gap 14 (12-20) BUN 14 (9-16) mg/dL Creatinine 1.15 (0.5-1.4) mg/dL Estim Creat Clear Calc 116.6 Estimated GFR > 60 POC Glucose 311 H 251 H (60-115) mg/dL Random Glucose 305 H D (60-115) mg/dL Calcium 8.7 D (8.4-10.2) mg/dL Total Bilirubin (0.0-1.0) mg/dL Direct Bilirubin (0.0-0.5) mg/dL AST (5-37) U/L ALT (0-40) U/L Alkaline Phosphatase (39-117) U/L Total Protein (6.5-8.0) g/dL Albumin (3.5-5.0) g/dL Urine Color Urine Appearance Urine pH (5.0-9.0) Ur Specific [place] (1.005-1.025) Urine Protein (Neg-Trace) mg/dL Urine Glucose (UA) (Negative) mg/dL Urine Ketones (Negative) mg/dL Urine Blood (Negative) Urine Nitrite (Negative) Ur Leukocyte Esterase (Negative) Urine RBC (0-2) /HPF Urine WBC (0-5) /HPF Ur Squamous Epith Cells (0-2) /HPF Urine Bacteria (None Seen) Hyaline Casts (0-2) /LPF Acetone, Qual (Negative) COVID-19 (JOAN) (Negative) COVID-19 Clin Com 03/27/22 Range/Units 19:45 WBC (4.8-10.8) X10*3/uL RBC (4.60-5.80) X10*6/uL Hgb (14.0-18.0) g/dl Hct (42.0-52.0) % MCV (80.0-98.0) fL MCH (27.0-33.0) pg MCHC (31.0-36.0) g/dl RDW (11.0-16.0) % Plt Count (160-400) X10*3/uL MPV (9.4-12.4) fL Immature Gran % (Auto) (0.0-0.4) % Neut % (Auto) (45-73) % Lymph % (Auto) (20-40) % [place] % (Auto) (2-11) % Eos % (Auto) (0-4) % Baso % (Auto) (0-2) % Lymph # (Auto) (1.2-4.9) X10*3/uL [place] # (Auto) (0.1-1.2) X10*3/uL Eos # (Auto) (0.0-0.4) X10*3/uL Baso # (Auto) (0.0-0.2) X10*3/uL Abs Immat Gran (auto) (0.00-0.03) X10*3/uL Absolute Neuts (auto) (2.0-8.3) x10*3/uL Absolute Nucleated RBC (0.0-0.012) X10*3/uL Nucleated RBC % (auto) (0.0-0.2) /100WBC Sodium (135-145) mmol/L Potassium (3.3-5.1) mmol/L Chloride (96-108) mmol/L Carbon Dioxide (22-29) mmol/L Anion Gap (12-20) BUN (9-16) mg/dL Creatinine (0.5-1.4) mg/dL Estim Creat Clear Calc Estimated GFR POC Glucose 251 H (60-115) mg/dL Random Glucose (60-115) mg/dL Calcium (8.4-10.2) mg/dL Total Bilirubin (0.0-1.0) mg/dL Direct Bilirubin (0.0-0.5) mg/dL AST (5-37) U/L ALT (0-40) U/L Alkaline Phosphatase (39-117) U/L Total Protein (6.5-8.0) g/dL Albumin (3.5-5.0) g/dL Urine Color Urine Appearance Urine pH (5.0-9.0) Ur Specific [place] (1.005-1.025) Urine Protein (Neg-Trace) mg/dL Urine Glucose (UA) (Negative) mg/dL Urine Ketones (Negative) mg/dL Urine Blood (Negative) Urine Nitrite (Negative) Ur Leukocyte Esterase (Negative) Urine RBC (0-2) /HPF Urine WBC (0-5) /HPF Ur Squamous Epith Cells (0-2) /HPF Urine Bacteria (None Seen) Hyaline Casts (0-2) /LPF Acetone, Qual (Negative) COVID-19 (JOAN) (Negative) COVID-19 Clin Com Discharge Plan Discharge Clinical Impression: Acute hyperglycemia, New onset type 2 diabetes mellitus Patient Disposition: Home, Self-Care Instructions: Type 2 Diabetes in Adults: New Diagnosis (ED), Diabetic Hyperglycemia (ED), Diabetes and Your Skin (ED), Diabetes and Your Mouth (ED), Diabetes and Nutrition (ED), Diabetes and Exercise (ED), How to Check your Blood Sugar (ED) Additional Instructions: You were evaluated for elevated blood sugar. We gave you 2 L of fluid, and insulin while in the emergency department. I prescribed metformin 850 mg by mouth twice a day. Take this medication every day until you see your primary care physician. You must follow-up with primary care physician in the next 2 weeks. Drink plenty of fluids. Maintain a healthy diet. Thank you for choosing this emergency department for evaluation. Please follow-up with primary care physician as needed. Return to the emergency department for any new, concerning, or worsening symptoms. Prescriptions: New metformin 850 mg tablet 850 mg PO BID 30 Days Qty: 60 1RF No Action olanzapine 10 mg tablet 15 mg PO BID divalproex 500 mg tablet extended release 24 hr 1,000 mg PO BID fluoxetine 20 mg capsule 60 mg PO DAILY acetaminophen 500 mg Tablet 500 mg PO Q6H PRN (Reason: Pain) Hold Instructions: hold for PCP to assess ibuprofen 400 mg Tablet 400 mg PO Q6H PRN (Reason: Pain) nicotine (polacrilex) 4 mg gum 4 mg buccal Q2H Qty: 100 0RF naltrexone 50 mg tablet 50 mg PO DAILY Qty: 30 0RF Rx Instructions: Take 1/2 tab daily for 2 days then increase to one full tab daily Vivitrol 380 mg suspension,extended rel recon 380 mg IM Q4W Qty: 1 5RF Referrals: Elia Argueta III, MD [Primary Care Provider] - (New onset diabetes) Interventions: ED Discharge Assessment Last Done: 03/27/22 20:23 Discharge Date/Time: 03/27/22 20:24
[2022-03-27 16:21] LABS: Glucose, Whole Blood 545 mg/dL (60-115)
[2022-03-27 16:29] LABS: Appearance Urine Clear; Color Urine Yellow; Glucose Urine UA >=1000 mg/dL (Negative); Leukocyte Esterase Urine Negative (Negative); Nitrite Urine Negative (Negative); PH 6.5 (5.0-9.0); Specific Gravity - Urine >= 1.030 (1.005-1.025); UMIC TRIGGER UACC YES; Urine Blood Negative (Negative); Urine Ketones Negative (Negative); Urine Protein Negative (Neg-Trace)
[2022-03-27] MEDS: 0.9 % Sodium Chloride 1,000 ML 999 ML IVCONT ×2 (16:34→17:40)
[2022-03-27] MEDS: Insulin Lispro 100 UNIT/ML 3 ML VIAL 10 UNIT SUBCUT (16:43)
[2022-03-27] MEDS: Insulin Regular, Human 100 UNIT/ML 3 ML VIAL IVPUSH (16:44)
[2022-03-27 16:51] LABS: Bacteria Urine None Seen (None Seen); Hyaline Casts Urine 0-2 /LPF (0-2); RBC Urine 0-2 /HPF (0-2); Squamous Epithelial Cell Urine 0-2 /HPF (0-2); WBC Urine 0-5 /HPF (0-5)
[2022-03-27 17:37] LABS: Glucose, Whole Blood 375 mg/dL (60-115)
[2022-03-27 18:19] LABS: Glucose, Whole Blood 309 mg/dL (60-115)
[2022-03-27 18:36] VITALS: BP 123/62; PULSE 87; RESP 18; TEMP 36.1; O2SAT 98
--- NOTE | 2022-03-27 18:47 | PC.NURSE ---
pt presented to ED with Russell HERNANDEZ. Russell states that for any changes/updates we should contact him @ [phone]. for when pt is ready to be picked up we should call direct care staff diana [phone] OR rodolfo [phone]
[2022-03-27 18:58] LABS: Glucose, Whole Blood 311 mg/dL (60-115)
[2022-03-27 19:32] VITALS: BP 125/75; PULSE 85; RESP 16; O2SAT 96
--- NOTE | 2022-03-27 19:32 | PC.NURSE ---
Assumed care of pt. at 1900. Pt. requesting ice water and food. Will check [facility] provider. BS down to 251. VS stable. Pt. resting in bed, under no apparent distress.
[2022-03-27 19:34] LABS: Anion Gap 14 (12-20); Blood Urea Nitrogen 14 mg/dL (9-16); Calcium 8.7 mg/dL (8.4-10.2); Carbon Dioxide 26 mmol/L (22-29); Chloride 100 mmol/L (96-108); Creatinine Clr Calc Pharmacy 116.6; Estimated Glomerular Filt Rate > 60; Glucose Random 305 mg/dL (60-115); Sodium 136 mmol/L (135-145)
[2022-03-27 19:38] LABS: Glucose, Whole Blood 251 mg/dL (60-115)
[2022-03-27 19:54] LABS: Glucose, Whole Blood 251 mg/dL (60-115)
== END 2022-03-27 20:24 | disposition home or self-care (01) ==
PROVIDERS: Emergency Medicine; Nurse Practitioner Family; Emergency Provider Emergency Medicine; PCP Internal Medicine
DX: E11.65 Type 2 diabetes mellitus with hyperglycemia (principal); Z20.822 Contact with and (suspected) exposure to COVID-19; F25.9 Schizoaffective disorder, unspecified; F19.10 Other psychoactive substance abuse, uncomplicated; F17.210 Nicotine dependence, cigarettes, uncomplicated
CPT/HCPCS: 36415; 80048; 80053; 81001; 82009; 82248; 82947; 85025; 87635; 96361; 96374; 99284; 99285

== ENCOUNTER 2022-03-30 15:12 | Emergency (ER) | payer MEDICARE, MEDICAID, SELFPAY ==
[2022-03-30 15:22] VITALS: BP 145/67; PULSE 95; RESP 18; TEMP 37.2; O2SAT 94; BMI 36.6
[2022-03-30 15:39] LABS: Glucose, Whole Blood 535 mg/dL (60-115)
[2022-03-30 15:42] LABS: MANUAL DIFF FLAG NO
[2022-03-30 15:53] LABS: Appearance Urine Clear; Color Urine Yellow; Glucose Urine UA >=1000 mg/dL (Negative); Leukocyte Esterase Urine Negative (Negative); Nitrite Urine Negative (Negative); PH 6.5 (5.0-9.0); Specific Gravity - Urine >= 1.030 (1.005-1.025); UMIC TRIGGER UACC YES; Urine Blood Negative (Negative); Urine Ketones Trace mg/dL (Negative); Urine Protein Negative (Neg-Trace)
[2022-03-30 15:58] LABS: Bacteria Urine None Seen (None Seen); COVID-19 Test Negative (Negative); Hyaline Casts Urine 0-2 /LPF (0-2); RBC Urine 0-2 /HPF (0-2); Squamous Epithelial Cell Urine 0-2 /HPF (0-2); WBC Urine 0-5 /HPF (0-5)
--- NOTE | 2022-03-30 16:00 | PC.NURSE ---
susana ann, after school program teacher, would like to be contacted regarding care plans re pt. [phone]
[2022-03-30 16:33] LABS: Basophils Percent Auto 0.7 % (0-2); Eosinophils Percent Auto 0.3 % (0-4); Hematocrit 34.6 % (42.0-52.0); Hemoglobin 12.5 g/dl (14.0-18.0); Imm Gran Abs Auto 0.04 X10*3/uL (0.00-0.03); Imm Gran Pct Auto 1.4 % (0.0-0.4); Lymphocytes Absolute Auto 1.1 X10*3/uL (1.2-4.9); Lymphocytes Percent Auto 38.7 % (20-40); Mean Corpuscular HGB Conc 36.1 g/dl (31.0-36.0); Mean Corpuscular Hemoglobin 32.6 pg (27.0-33.0); Mean Corpuscular Volume 90.1 fL (80.0-98.0); Mean Platelet Volume 9.9 fL (9.4-12.4); Monocytes Absolute Auto 0.3 X10*3/uL (0.1-1.2); Monocytes Percent Auto 10.5 % (2-11); NRBC Pct Auto 0.7 /100WBC (0.0-0.2); Neutrophils Absolute Auto 1.4 x10*3/uL (2.0-8.3); Neutrophils Percent Auto 48.4 % (45-73); Platelet Count 237 X10*3/uL (160-400); Red Blood Count 3.84 X10*6/uL (4.60-5.80); Red Cell Distribution Width 13.2 % (11.0-16.0); White Blood Count 2.9 X10*3/uL (4.8-10.8)
[2022-03-30 16:54] LABS: Acetone, serum QL Negative (Negative)
[2022-03-30 17:17] LABS: Alanine Aminotransferase 60 U/L (0-40); Albumin Level 4.3 g/dL (3.5-5.0); Alkaline Phosphatase 118 U/L (39-117); Anion Gap 23 (12-20); Aspartate Amino Transferase 50 U/L (5-37); Bilirubin Direct < 0.2 mg/dL (0.0-0.5); Bilirubin Total 0.5 mg/dL (0.0-1.0); Blood Urea Nitrogen 11 mg/dL (9-16); Calcium 9.7 mg/dL (8.4-10.2); Carbon Dioxide 20 mmol/L (22-29); Chloride 94 mmol/L (96-108); Creatinine Clr Calc Pharmacy 85.7; Estimated Glomerular Filt Rate 55; Glucose Random 591 mg/dL (60-115); Lipase 68 U/L (8-78); Potassium 4.9 mmol/L (3.3-5.1); Sodium 132 mmol/L (135-145); Total Protein 7.8 g/dL (6.5-8.0)
--- NOTE | 2022-03-30 17:33 | ED.RECABL ---
HPI - Recheck/Abnormal Lab/Rx General Chief Complaint: Recheck/Abnormal Lab/Rx Stated Complaint: Hyperglycemia Time Seen by Provider: 03/30/22 17:32 Source: patient Mode of arrival: ambulatory Limitations: no limitations History of Present Illness HPI narrative: This is a 31-year-old male past medical history significant for opiate use disorder, schizoaffective disorder presenting to the emergency department for abnormal glucose levels at PCPs office. According to group fitness manager and patient's mother patient was recently diagnosed with diabetes and was placed on 850 mg p.o. b.i.d. of metformin, patient has been taking this, despite taking metformin his sugars have been elevated. Patient tells me he has been drinking a lot of water and peeing more than usual. Patient also tells me that he has been feeling much more fatigued than usual and reports intermittent numbness and tingling to bilateral lower extremities. He tells me he was seen in the emergency department not long ago for dizziness and at that time he also had an elevated sugar. correction staff member tells me that for the past 3 weeks patient has been having frequent urination and at times he just goes in his bed. Patient tells me that this is been happening to him for the past few months however he never said anything. Patient denies fevers, chills, chest pain, shortness of breath, nausea, vomiting, abdominal pain, back pain, headache, dizziness, vision changes. Related Data Home Medications Medication Instructions Recorded Confirmed acetaminophen 500 mg tablet 500 mg PO Q6H PRN Pain 02/04/21 02/04/21 divalproex 500 mg tablet,extended 1,000 mg PO BID 02/04/21 02/04/21 release 24 hr fluoxetine 20 mg capsule 60 mg PO DAILY 02/04/21 02/08/21 ibuprofen 400 mg tablet 400 mg PO Q6H PRN Pain 02/04/21 02/04/21 olanzapine 10 mg tablet 15 mg PO BID 02/04/21 02/04/21 Previous Rx's Medication Instructions Recorded nicotine (polacrilex) 4 mg gum 4 mg buccal Q2H #100 ea 02/08/21 naltrexone 50 mg tablet 50 mg PO DAILY #30 tabs 02/10/21 naltrexone microspheres 380 mg 380 mg IM Q4W #1 ea 02/17/21 intramuscular suspension,extended release (Vivitrol) metformin 850 mg tablet 850 mg PO BID 30 days #60 tabs 03/27/22 metformin 500 mg tablet 1,000 mg PO BID #30 tabs 03/30/22 Allergies Allergy/AdvReac Type Severity Reaction Status Date / Time trazodone [Trazodone] Allergy Severe SWOLLEN Verified 04/27/21 10:06 TONGUE amoxicillin [Amoxicillin] Allergy Unknown UNKNOWN Verified 04/27/21 10:06 haloperidol [From HALDOL] Allergy Unknown UNKNOWN Verified 04/27/21 10:06 Amoxicillin Allergy Unknown Unknown Uncoded 12/30/20 20:21 Review of Systems Review of Systems: Constitutional : No Weight loss, No Fever, No Chills, No Fatigue, No Malaise ENT/Mouth : No sore throat, No Rhinorrhea Eyes: No Eye Pain, No Swelling, No Redness Cardiovascular : No Chest Pain, No SOB, No Dyspnea on Exertion, No Orthopnea, No Edema, No Palpitations Respiratory : No Cough, No Sputum, No Wheezing Gastrointestinal : No Nausea, No Vomiting, No Diarrhea, No Constipation, No abdominal Pain, No Hematochezia, No Melena Genitourinary : No Dysuria, No Urinary Frequency, No Hematuria, Musculoskeletal : No joint pain, No Myalgias, No Joint Swelling Skin : No Skin Lesions, No rash Neuro : No Weakness, No Numbness, No Dizziness, No Headache Endocrine : + Polyuria, + Polydipsia All other systems reviewed and are negative Yes all other systems are reviewed and are negative [facility] Past Medical History Attestation statement: The following information was validated with the patient. Source: old records reviewed and nursing notes reviewed Medical History Anxiety Schizoaffective disorder Substance abuse Family History Family History (Updated 03/30/22 @ 18:00 by Carlotta Valdovinos RN) Brother Family history non-contributory Other Hypertrophic cardiomyopathy Social History Social History Household Members: None and Other Housing: Other Housing Other:: [facility] Alcohol intake: unknown Patient Tobacco Use Status: Never used Tobacco Tobacco use type: Cigarette Cigarette Packs Per Day: 1 Cigarettes Per Day: 20.0 Years Smoked: 11 Second Hand Smoke Exposure: Yes Substance Use Type: Marijuana Advance Directives: No Advance Directives Information Provided: No service: No Sexual orientation: Straight/Heterosexual Physical Exam Vital Signs: Vital Signs: Last Vital Signs Temp 98.9 F 03/30/22 15:22 Pulse 86 03/30/22 19:53 Resp 14 03/30/22 19:53 BP 134/71 03/30/22 19:53 Pulse Ox 96 03/30/22 19:53 O2 Del Method 03/30/22 19:53 BMI result Body Mass Index 36.6 vss Appearance: Alert.? Oriented X3.? No acute distress.? Head: Normocephalic, atraumatic, no step-offs or deformities Eyes: Pupils equal, round and reactive to light.? ENT: Pharynx normal.? Neck: Normal inspection.? Neck supple.? CVS: Normal heart rate and rhythm.? Pulses normal.? Respiratory: No respiratory distress.? Breath sounds normal.? Abdomen: Soft and nontender.? Skin: Skin warm and dry.? Normal skin color.? Normal skin turgor.? Extremities: No lower extremity edema.? No calf ttp. 5/5 strength to bilateral upper and lower extremities Neuro: Oriented X 3.? No motor deficit.? No sensory deficit. CN 2-12 intact Course Course Course Narrative: Discussed this case with Dr. Steel who agrees w/ my tx plan. Reevaluation(s) Reevaluation #1: CBC appears to be around patient's baseline. Chemistry significant for a slightly low sodium, anion gap, elevated creatinine, sugar of 591. at this time patient will continue with IV hydration with normal saline. Acetone negative. Urine with trace ketones. I have ordered additional laboratory studies that were not ordered by triage nurse including a VBG. Time: 17:38 Reevaluation #2: Patient with only trace ketones in urine, acetone negative, VBG not acidotic, unlikely that this is DKA, likely uncontrolled diabetes. At this time patient receiving fluids, repeat POC 321 with soley hydration.. Will recheck POC at a later time. Time: 18:31 Reevaluation #3: Patient reports he feels back to normal, requesting to go home. Patient will be sent home with metformin 1000 mg PO BID instructed to stop taking 850 mg po BID. I educated patient on proper dietary habits, advised follow-up with PCP and return with new or worsening symptoms. At this time I feel comfortable discharge. Time: 21:15 MDM - Recheck/Abnormal Lab/Rx MDM Narrative Medical decision making narrative: 1736 31-year-old male presents with abnormal blood glucose level, noted to have ketones in his urine on an outpatient appointment. I would patient currently on metformin 850 mg p.o. b.i.d.. Physical examination benign. Concerns for possible diabetic ketoacidosis or HHS although less likely. However likely uncontrolled DM. At this time is to obtain basic labs, urine, VBG, acetone. Will start IV hydration with normal saline. Will rule out electrolyte abnormalities as well. Medical Records Attestation: I reviewed the patient's medical records. Lab Data Attestation: I reviewed the patient's lab results. Result diagrams: 03/30/22 15:34 03/30/22 15:34 Labs: Lab Results 03/30/22 03/30/22 03/30/22 Range/Units 15:32 15:34 15:34 WBC 2.9 L (4.8-10.8) X10*3/uL RBC 3.84 L (4.60-5.80) X10*6/uL Hgb 12.5 L (14.0-18.0) g/dl Hct 34.6 L (42.0-52.0) % MCV 90.1 (80.0-98.0) fL MCH 32.6 (27.0-33.0) pg MCHC 36.1 H (31.0-36.0) g/dl RDW 13.2 (11.0-16.0) % Plt Count 237 (160-400) X10*3/uL MPV 9.9 (9.4-12.4) fL Immature Gran % (Auto) 1.4 H (0.0-0.4) % Neut % (Auto) 48.4 (45-73) % Lymph % (Auto) 38.7 (20-40) % [place] % (Auto) 10.5 (2-11) % Eos % (Auto) 0.3 (0-4) % Baso % (Auto) 0.7 (0-2) % Lymph # (Auto) 1.1 L (1.2-4.9) X10*3/uL [place] # (Auto) 0.3 (0.1-1.2) X10*3/uL Eos # (Auto) 0.0 (0.0-0.4) X10*3/uL Baso # (Auto) 0.0 (0.0-0.2) X10*3/uL Abs Immat Gran (auto) 0.04 H (0.00-0.03) X10*3/uL Absolute Neuts (auto) 1.4 L (2.0-8.3) x10*3/uL Absolute Nucleated RBC 0.020 H (0.0-0.012) X10*3/uL Nucleated RBC % (auto) 0.7 H (0.0-0.2) /100WBC VBG pH (7.32-7.43) VBG pCO2 mmHg VBG pO2 mmHg VBG HCO3 (22-26) mmol/L VBG O2 Saturation % VBG Base Excess mmol/L Sodium 132 L (135-145) mmol/L Potassium 4.9 D (3.3-5.1) mmol/L Chloride 94 L (96-108) mmol/L Carbon Dioxide 20 L (22-29) mmol/L Anion Gap 23 H (12-20) BUN 11 (9-16) mg/dL Creatinine 1.51 H (0.5-1.4) mg/dL Estim Creat Clear Calc 85.7 Estimated GFR 55 POC Glucose 535 H* (60-115) mg/dL Random Glucose 591 H* (60-115) mg/dL Estimat Average Glucose mg/dL Hemoglobin A1c % % Calcium 9.7 D (8.4-10.2) mg/dL Total Bilirubin 0.5 (0.0-1.0) mg/dL Direct Bilirubin < 0.2 (0.0-0.5) mg/dL AST 50 H (5-37) U/L ALT 60 H (0-40) U/L Alkaline Phosphatase 118 H (39-117) U/L Total Protein 7.8 (6.5-8.0) g/dL Albumin 4.3 (3.5-5.0) g/dL Lipase 68 (8-78) U/L Urine Color Urine Appearance Urine pH (5.0-9.0) Ur Specific [place] (1.005-1.025) Urine Protein (Neg-Trace) mg/dL Urine Glucose (UA) (Negative) mg/dL Urine Ketones (Negative) mg/dL Urine Blood (Negative) Urine Nitrite (Negative) Ur Leukocyte Esterase (Negative) Urine RBC (0-2) /HPF Urine WBC (0-5) /HPF Ur Squamous Epith Cells (0-2) /HPF Urine Bacteria (None Seen) Hyaline Casts (0-2) /LPF Acetone, Qual Negative (Negative) COVID-19 (JOAN) (Negative) COVID-19 Clin Com 03/30/22 03/30/22 03/30/22 Range/Units 15:36 15:36 18:04 WBC (4.8-10.8) X10*3/uL RBC (4.60-5.80) X10*6/uL Hgb (14.0-18.0) g/dl Hct (42.0-52.0) % MCV (80.0-98.0) fL MCH (27.0-33.0) pg MCHC (31.0-36.0) g/dl RDW (11.0-16.0) % Plt Count (160-400) X10*3/uL MPV (9.4-12.4) fL Immature Gran % (Auto) (0.0-0.4) % Neut % (Auto) (45-73) % Lymph % (Auto) (20-40) % [place] % (Auto) (2-11) % Eos % (Auto) (0-4) % Baso % (Auto) (0-2) % Lymph # (Auto) (1.2-4.9) X10*3/uL [place] # (Auto) (0.1-1.2) X10*3/uL Eos # (Auto) (0.0-0.4) X10*3/uL Baso # (Auto) (0.0-0.2) X10*3/uL Abs Immat Gran (auto) (0.00-0.03) X10*3/uL Absolute Neuts (auto) (2.0-8.3) x10*3/uL Absolute Nucleated RBC (0.0-0.012) X10*3/uL Nucleated RBC % (auto) (0.0-0.2) /100WBC VBG pH (7.32-7.43) VBG pCO2 mmHg VBG pO2 mmHg VBG HCO3 (22-26) mmol/L VBG O2 Saturation % VBG Base Excess mmol/L Sodium (135-145) mmol/L Potassium (3.3-5.1) mmol/L Chloride (96-108) mmol/L Carbon Dioxide (22-29) mmol/L Anion Gap (12-20) BUN (9-16) mg/dL Creatinine (0.5-1.4) mg/dL Estim Creat Clear Calc Estimated GFR POC Glucose (60-115) mg/dL Random Glucose (60-115) mg/dL Estimat Average Glucose 240 mg/dL Hemoglobin A1c % 10.0 % Calcium (8.4-10.2) mg/dL Total Bilirubin (0.0-1.0) mg/dL Direct Bilirubin (0.0-0.5) mg/dL AST (5-37) U/L ALT (0-40) U/L Alkaline Phosphatase (39-117) U/L Total Protein (6.5-8.0) g/dL Albumin (3.5-5.0) g/dL Lipase (8-78) U/L Urine Color Yellow Urine Appearance Clear Urine pH 6.5 (5.0-9.0) Ur Specific [place] >= 1.030 H (1.005-1.025) Urine Protein Negative (Neg-Trace) mg/dL Urine Glucose (UA) >=1000 H (Negative) mg/dL Urine Ketones Trace (Negative) mg/dL Urine Blood Negative (Negative) Urine Nitrite Negative (Negative) Ur Leukocyte Esterase Negative (Negative) Urine RBC 0-2 (0-2) /HPF Urine WBC 0-5 (0-5) /HPF Ur Squamous Epith Cells 0-2 (0-2) /HPF Urine Bacteria None Seen (None Seen) Hyaline Casts 0-2 (0-2) /LPF Acetone, Qual (Negative) COVID-19 (JOAN) Negative (Negative) COVID-19 Clin Com See Note 03/30/22 03/30/22 03/30/22 Range/Units 18:09 18:32 19:57 WBC (4.8-10.8) X10*3/uL RBC (4.60-5.80) X10*6/uL Hgb (14.0-18.0) g/dl Hct (42.0-52.0) % MCV (80.0-98.0) fL MCH (27.0-33.0) pg MCHC (31.0-36.0) g/dl RDW (11.0-16.0) % Plt Count (160-400) X10*3/uL MPV (9.4-12.4) fL Immature Gran % (Auto) (0.0-0.4) % Neut % (Auto) (45-73) % Lymph % (Auto) (20-40) % [place] % (Auto) (2-11) % Eos % (Auto) (0-4) % Baso % (Auto) (0-2) % Lymph # (Auto) (1.2-4.9) X10*3/uL [place] # (Auto) (0.1-1.2) X10*3/uL Eos # (Auto) (0.0-0.4) X10*3/uL Baso # (Auto) (0.0-0.2) X10*3/uL Abs Immat Gran (auto) (0.00-0.03) X10*3/uL Absolute Neuts (auto) (2.0-8.3) x10*3/uL Absolute Nucleated RBC (0.0-0.012) X10*3/uL Nucleated RBC % (auto) (0.0-0.2) /100WBC VBG pH 7.45 H (7.32-7.43) VBG pCO2 32 mmHg VBG pO2 85 mmHg VBG HCO3 22 (22-26) mmol/L VBG O2 Saturation 98.0 % VBG Base Excess -0.2 mmol/L Sodium (135-145) mmol/L Potassium (3.3-5.1) mmol/L Chloride (96-108) mmol/L Carbon Dioxide (22-29) mmol/L Anion Gap (12-20) BUN (9-16) mg/dL Creatinine (0.5-1.4) mg/dL Estim Creat Clear Calc Estimated GFR POC Glucose 348 H 263 H (60-115) mg/dL Random Glucose (60-115) mg/dL Estimat Average Glucose mg/dL Hemoglobin A1c % % Calcium (8.4-10.2) mg/dL Total Bilirubin (0.0-1.0) mg/dL Direct Bilirubin (0.0-0.5) mg/dL AST (5-37) U/L ALT (0-40) U/L Alkaline Phosphatase (39-117) U/L Total Protein (6.5-8.0) g/dL Albumin (3.5-5.0) g/dL Lipase (8-78) U/L Urine Color Urine Appearance Urine pH (5.0-9.0) Ur Specific [place] (1.005-1.025) Urine Protein (Neg-Trace) mg/dL Urine Glucose (UA) (Negative) mg/dL Urine Ketones (Negative) mg/dL Urine Blood (Negative) Urine Nitrite (Negative) Ur Leukocyte Esterase (Negative) Urine RBC (0-2) /HPF Urine WBC (0-5) /HPF Ur Squamous Epith Cells (0-2) /HPF Urine Bacteria (None Seen) Hyaline Casts (0-2) /LPF Acetone, Qual (Negative) COVID-19 (JOAN) (Negative) COVID-19 Clin Com Critical Care Time Critical Care Time Critical Care Time: No Discharge Plan Discharge Clinical Impression: Hyperglycemia Patient Disposition: Home, Self-Care Instructions: Diabetic Hyperglycemia (ED) Additional Instructions: Take your medications as prescribed. If you were prescribed antibiotics today, it is important that you take your medication to their entirety, do not skip any doses, do not finish them early. Follow-up with your primary care provider this week. Return to the emergency department with new or worsening symptoms. Such as fevers, chills, chest pain, shortness of breath, nausea, vomiting, dizziness, headache, vision changes, lethargy In case of emergency call 911 Please stop taking metformin 850 mg p.o. b.i.d. instead take a 1000 mg p.o. b.i.d.. Prescriptions: New metformin 500 mg tablet 1,000 mg PO BID Qty: 30 0RF No Action olanzapine 10 mg tablet 15 mg PO BID divalproex 500 mg tablet extended release 24 hr 1,000 mg PO BID fluoxetine 20 mg capsule 60 mg PO DAILY acetaminophen 500 mg Tablet 500 mg PO Q6H PRN (Reason: Pain) Hold Instructions: hold for PCP to assess ibuprofen 400 mg Tablet 400 mg PO Q6H PRN (Reason: Pain) nicotine (polacrilex) 4 mg gum 4 mg buccal Q2H Qty: 100 0RF metformin 850 mg tablet 850 mg PO BID 30 Days Qty: 60 1RF naltrexone 50 mg tablet 50 mg PO DAILY Qty: 30 0RF Rx Instructions: Take 1/2 tab daily for 2 days then increase to one full tab daily Vivitrol 380 mg suspension,extended rel recon 380 mg IM Q4W Qty: 1 5RF Referrals: Elia Argueta III, MD [Primary Care Provider] - 2 days Stand Alone Forms: Work/School Release
[2022-03-30] MEDS: 0.9 % Sodium Chloride 1,000 ML 999 ML IV (18:05)
[2022-03-30 18:16] LABS: Venous Blood Gas Refer to POC result
[2022-03-30 18:16] LABS: VBG Base Excess -0.2 mmol/L; VBG HCO3 22 mmol/L (22-26); VBG pCO2 32 mmHg; VBG pH 7.45 (7.32-7.43); VBG pO2 85 mmHg
[2022-03-30 18:37] LABS: Glucose, Whole Blood 348 mg/dL (60-115)
[2022-03-30 18:51] LABS: Estimated Average Glucose 240 mg/dL
[2022-03-30 19:53] VITALS: BP 134/71; PULSE 86; RESP 14; O2SAT 96
[2022-03-30 20:02] LABS: Glucose, Whole Blood 263 mg/dL (60-115)
[2022-03-30 21:27] LABS: Alanine Aminotransferase 58 U/L (0-40); Albumin Level 4.1 g/dL (3.5-5.0); Alkaline Phosphatase 91 U/L (39-117); Anion Gap 23 (12-20); Aspartate Amino Transferase 47 U/L (5-37); Bilirubin Total 0.5 mg/dL (0.0-1.0); Blood Urea Nitrogen 11 mg/dL (9-16); Carbon Dioxide 17 mmol/L (22-29); Chloride 101 mmol/L (96-108); Creatinine Clr Calc Pharmacy 123.3; Estimated Glomerular Filt Rate > 60; Glucose Random 319 mg/dL (60-115); Sodium 137 mmol/L (135-145); Total Protein 7.1 g/dL (6.5-8.0)
[2022-03-30 21:36] VITALS: BP 129/67; PULSE 92; RESP 14; O2SAT 96
== END 2022-03-30 21:41 | disposition home or self-care (01) ==
PROVIDERS: Physician Assistant; Emergency Provider Student in an Organized Health Care Education/Training Program; PCP Internal Medicine
DX: E11.65 Type 2 diabetes mellitus with hyperglycemia (principal); R79.89 Other specified abnormal findings of blood chemistry; R20.0 Anesthesia of skin; F17.210 Nicotine dependence, cigarettes, uncomplicated; Z20.822 Contact with and (suspected) exposure to COVID-19; Z79.899 Other long term (current) drug therapy; Z71.6 Tobacco abuse counseling; Z79.84 Long term (current) use of oral hypoglycemic drugs
CPT/HCPCS: 36415; 80053; 81001; 82009; 82248; 82803; 82947; 83036; 83690; 85025; 87635; 99283; 99284

== ENCOUNTER 2022-04-07 10:54 | Outpatient (REF) | payer MEDICARE, MEDICAID, SELFPAY | END 2022-04-07 10:55 | disposition home or self-care (01) | LOC: HO.HAP 10:54 | PROVIDERS: PCP Internal Medicine; Visit Provider Internal Medicine | DX: Z46.1 Encounter for fitting and adjustment of hearing aid (principal); H90.3 Sensorineural hearing loss, bilateral | CPT/HCPCS: 92592 ==

== ENCOUNTER 2022-06-12 12:28 | Outpatient (REF) | payer MEDICARE, MEDICAID, SELFPAY ==
--- NOTE | 2022-06-13 09:12 | MHC.AU.HA3 ---
Hearing Instrument Follow-Up- Binaural Date of Visit: 06/12/22 Right Ear: Robel, Model, Color, Serial Number: Darion Clarke [id number] SN: [id number] Color: Sand Beige Wound Specialist Repair Warranty: 12/29/2023 Wound Specialist Loss and Damage Warranty: 12/29/2023 Battery Size: 13 Pool Technician/Slim Tube: 2 UP Earmold/Dome/CShell/SlimTip:C-Shell SN: [id number] Warranty: 01/11/2022 Type of Wax Guard: Cerustop Dispensed By: [facility] Date of Fittin12/13/2020 Left Ear: Robel, Model, Color, Serial Number: Darion Clarke [id number] SN: [id number] Color: Sand Beige Wound Specialist Repair Warranty: 12/29/2023 Wound Specialist Loss and Damage Warranty: 12/29/2023 Battery Size: 13 Pool Technician/Slim Tube: 2 UP Earmold/Dome/CShell/SlimTip: Phonak Clear [place] C-Shell #[id number] warranty expires 01/29/21 Type of Wax Guard: CeruStop Dispensed By: [facility] Date of Fittin12/02/2020 Follow-Up Summary: Kyler dropped off his left hearing aid reporting that it was . Upon inspection, earmold was plugged with wax and no wax guard was in place. Cleaned hearing aid and ear mold. Cleaned out wax in ear mold and replaced wax guard. Vacuumed microphones. A listening check demonstrated that the hearing aid is in good working order. Recommendations: Hearing instrument maintenance in 6 months, or sooner if needed. Recommendations (Other): Cerumen removal was recommended on 04/07/2022 - if not completed, recommend follow up with PCP to check ears for wax and remove, as necessary. Diagnosis Code(s): Primary Diagnosis: H90.3 Bilateral Sensorineural Hearing Loss Signature: Provider: Stanislaw Nascimento, [facility]
== END 2022-06-12 12:29 | disposition home or self-care (01) ==
LOC: HO.HAP 12:28
PROVIDERS: Visit Provider Internal Medicine
DX: Z13.89 Encounter for screening for other disorder (principal)

== ENCOUNTER 2022-06-13 15:50 | Outpatient (REF) | payer MEDICARE, MEDICAID, SELFPAY | END 2022-06-13 15:51 | disposition home or self-care (01) | LOC: HO.HAP 15:50 | PROVIDERS: Visit Provider Internal Medicine | DX: Z46.1 Encounter for fitting and adjustment of hearing aid (principal); H90.3 Sensorineural hearing loss, bilateral | CPT/HCPCS: V5266 ==

== ENCOUNTER 2022-08-31 09:54 | Outpatient (REF) | payer MEDICARE, MEDICAID, SELFPAY ==
--- NOTE | 2022-08-31 10:59 | MHC.AU.FUL ---
Hearing Instrument Follow-Up Date of Visit: 08/31/22 Left Ear: Prop Maker: Phonak Zacharyeo [id number] SN: [id number] Color: Sand Beige Repair Warranty: 12/29/2023 Loss and Damage Warranty: 12/29/2023 L&D used 05/2021 Battery Size: 13 Color: Sand Beige Trip Rider: 2 UP Type of Mold: Phonak Clear [place] C-Shell #[id number] warranty expires 01/29/21 Type of Wax Guard: CeruStop Dispensed By: [facility] Date of Fittin12/02/2020 Follow-Up Summary: Patient has lost the right hearing aid, staff member attending confirmed they searched everywhere they could think of, and the left aid is not working. Listening check of the left aid shows aid is very weak and visual inspection of the left c-shell shows occluding cerumen and wax guard ring has broken off. Able to clean the left automotive tire tester, but aid continues to be weak. Sending c-shell in for repair out of warranty. Replaced automotive tire tester with Power #2 from stock and reprogrammed the aid with new acoustics. DID NOT RUN FEEDBACK TEST as the first test significantly reduced gain and Kyler was not able to hear. Not getting feedback in while office despite test not being run and he is hearing better. Recommendations (Other): Left message for PCP to fax new order for audiologic re-evaluation to start process of getting right replacement. It would be ideal to fit repaired c-shell and have hearing test at same time; however, if not possible, will schedule c-shell fitting when received. Diagnosis Code(s):Primary Diagnosis: H90.3 Bilateral Sensorineural Hearing Loss Services Performed: SELF Non-Quantity Charges: HACHECKM 1 Repair Signature:Provider: Stanislaw Dumont, [facility]
== END 2022-08-31 09:55 | disposition home or self-care (01) ==
LOC: HO.HAP 09:54
PROVIDERS: Visit Provider Internal Medicine
DX: Z46.1 Encounter for fitting and adjustment of hearing aid (principal); H90.3 Sensorineural hearing loss, bilateral
CPT/HCPCS: 92592; 99499

== ENCOUNTER 2022-09-15 11:01 | Emergency (ER) | payer MEDICARE, MEDICAID, SELFPAY ==
[2022-09-15 11:03] VITALS: BP 124/78; PULSE 107; O2SAT 98
[2022-09-15 11:14] VITALS: BP 146/67; PULSE 94; RESP 16; TEMP 36.9; O2SAT 97; BMI 37.5
--- NOTE | 2022-09-15 13:14 | ED_ITS ---
HPI - General Adult General Chief complaint: ETOH/Substance Use Stated complaint: Overdose per EMS Time Seen by Provider: 09/15/22 12:55 Source: patient Mode of arrival: EMS Limitations: no limitations History of Present Illness HPI narrative: 32-year-old male with history of substance abuse presents with an accidental overdose on heroin. Patient denies suicidal or homicidal ideation. He denies any, ingestions. He received Narcan prior to arrival which improved the symptoms. Patient denies any headache, nausea, vomiting, chest pain shortness of breath, palpitations, lightheadedness. Patient admits to having slip up. He reports having had resources as an outpatient for both psychiatric care and addiction services. Has narcan at home. Related Data Home Medications Medication Instructions Recorded Confirmed acetaminophen 500 mg tablet 500 mg PO Q6H PRN Pain 02/04/21 02/04/21 divalproex 500 mg tablet,extended 1,000 mg PO BID 02/04/21 02/04/21 release 24 hr fluoxetine 20 mg capsule 60 mg PO DAILY 02/04/21 02/08/21 ibuprofen 400 mg tablet 400 mg PO Q6H PRN Pain 02/04/21 02/04/21 olanzapine 10 mg tablet 15 mg PO BID 02/04/21 02/04/21 Previous Rx's Medication Instructions Recorded nicotine (polacrilex) 4 mg gum 4 mg buccal Q2H #100 ea 02/08/21 naltrexone 50 mg tablet 50 mg PO DAILY #30 tabs 02/10/21 naltrexone microspheres 380 mg 380 mg IM Q4W #1 ea 02/17/21 intramuscular suspension,extended release (Vivitrol) metformin 850 mg tablet 850 mg PO BID 30 days #60 tabs 03/27/22 metformin 500 mg tablet 1,000 mg PO BID #30 tabs 03/30/22 Allergies Allergy/AdvReac Type Severity Reaction Status Date / Time trazodone [Trazodone] Allergy Severe SWOLLEN Verified 04/27/21 10:06 TONGUE amoxicillin [Amoxicillin] Allergy Unknown UNKNOWN Verified 04/27/21 10:06 haloperidol [From HALDOL] Allergy Unknown UNKNOWN Verified 04/27/21 10:06 Amoxicillin Allergy Unknown Unknown Uncoded 12/30/20 20:21 Review of Systems Review of Systems: CONSTITUTIONAL: Denies weight loss, fever and chills. HEENT: Denies changes in vision and hearing. RESPIRATORY: Denies SOB and cough. CV: Denies palpitations no CP. GI: Denies abdominal pain, nausea, vomiting and diarrhea. : Denies dysuria and urinary frequency. MSK: Denies myalgia and joint pain. SKIN: Denies rash and pruritus. NEUROLOGICAL: Denies headache and syncope. PSYCHIATRIC: Denies recent changes in mood. Denies anxiety and depression. All other ROS are negative unless in HPI PMFSH Past Medical History Medical History Anxiety Schizoaffective disorder Substance abuse Family History Family History Brother Family history non-contributory Other Hypertrophic cardiomyopathy Social History Social History Household Members: None and Other Housing: Other Housing Other:: [facility] Alcohol intake: unknown Patient Tobacco Use Status: Never used Tobacco Tobacco use type: Cigarette Cigarette Packs Per Day: 1 Cigarettes Per Day: 20.0 Years Smoked: 11 Second Hand Smoke Exposure: Yes Substance Use Type: Marijuana Advance Directives: No Advance Directives Information Provided: Yes service: No Sexual orientation: Straight/Heterosexual Physical Exam ED Vital Signs: Vital Signs - 24 hr 09/15/22 11:14 Temperature 98.5 F Pulse Rate 94 Respiratory Rate 16 Blood Pressure 146/67 H Pulse Oximetry 97 Oxygen Delivery Method Room Air BMI result Body Mass Index 37.5 GEN: Well developed, no acute distress, alert, oriented HEENT: Normocephalic, atraumatic, normal external ears, nose appears normal, no oropharyngeal edema or exudates Eyes: Normal to appearance Neck: Supple, no lymphadenopathy Respiratory: Talks in complete sentences, no respiratory distress, clear to auscultation bilaterally Cardiovascular: Regular rate and rhythm, no murmurs rubs or gallops Abdomen: Soft, nontender, nondistended, no guarding, no rebound Back: No CVA tenderness Extremities: No clubbing cyanosis or edema Neurologic: No focal neurologic deficits, cranial nerves 2-12 intact, strength is 5/5 bilaterally, gait normal Skin: No rash Course Course Course Narrative: PAtient with accidental OD. Doing well. Observed for over 2 hours. Has outpatient resources. Has narcan at home. No neuro deficits. No complaints. Has deciion making capacity. Can be discharged at this time. Medical Decision Making Medical Decision Making MDM Narrative: Accidental opioid OD Differential Diagnosis Differential Diagnoses: The differential diagnosis associated with the presentation includes (OD, depression, anxiety, substance abuse) Admission/Observation Consideration of admission/observation: Escalation of care including admission/observation considered Independent Historian Clinical information obtained from an independent historian. History obtained from or confirmed by: EMS Social Determinants Patient?s care significantly limited by Social Determinants of Health including: Other Social Determinant of Health (addiction) Discharge Plan Discharge Clinical Impression: Opioid use disorder Patient Disposition: Home, Self-Care Instructions: Narcotic Use Disorder (ED) Prescriptions: No Action olanzapine 10 mg tablet 15 mg PO BID divalproex 500 mg tablet extended release 24 hr 1,000 mg PO BID fluoxetine 20 mg capsule 60 mg PO DAILY acetaminophen 500 mg Tablet 500 mg PO Q6H PRN (Reason: Pain) Hold Instructions: hold for PCP to assess ibuprofen 400 mg Tablet 400 mg PO Q6H PRN (Reason: Pain) nicotine (polacrilex) 4 mg gum 4 mg buccal Q2H Qty: 100 0RF metformin 500 mg tablet 1,000 mg PO BID Qty: 30 0RF metformin 850 mg tablet 850 mg PO BID 30 Days Qty: 60 1RF naltrexone 50 mg tablet 50 mg PO DAILY Qty: 30 0RF Rx Instructions: Take 1/2 tab daily for 2 days then increase to one full tab daily Vivitrol 380 mg suspension,extended rel recon 380 mg IM Q4W Qty: 1 5RF Referrals: Elia Argueta III, MD [Primary Care Provider] - 2 days
[2022-09-15 13:42] VITALS: BP 147/78; PULSE 92; RESP 20; TEMP 36.5; O2SAT 97
== END 2022-09-15 14:08 | disposition home or self-care (01) ==
PROVIDERS: Emergency Provider Emergency Medicine; PCP Internal Medicine
DX: F11.90 Opioid use, unspecified, uncomplicated (principal); T40.1X1A Poisoning by heroin, accidental (unintentional), initial encounter; Y92.9 Unspecified place or not applicable; F41.9 Anxiety disorder, unspecified; F20.9 Schizophrenia, unspecified
CPT/HCPCS: 99283; 99284

== ENCOUNTER 2022-09-18 10:01 | Outpatient (REF) | payer MEDICARE, MEDICAID, SELFPAY ==
--- NOTE | 2022-09-18 17:35 | MHC.AU.HFU ---
Hearing Instrument Follow-Up- Binaural Date of Visit: 09/18/22 Right Ear: Software Controls Engineer: Phonak Audeo [id number] SN: [id number] Color: Sand Beige AID REPORTED LOST AGAIN ON 08/31/2022 NEED TO HAVE NEW AUDIOGRAM, MEDICAL CLEARANCE FOR MH APPROVAL Repair Warranty: 12/29/2023 Loss and Damage Warranty: 12/29/2023 L&D used 04/05/2021 Battery Size: 13 Color: Sand Beige Parts Counter Specialist: 2 UP Type of Mold: C-Shell SN: [id number] Warranty: 01/11/2022 Type of Wax Guard: Cerustop Dispensed By: [facility] Date of Fittin12/13/2020 Left Ear: Software Controls Engineer: Phonak Audeo [id number] SN: [id number] Color: Sand Beige Repair Warranty: 12/29/2023 Loss and Damage Warranty: 12/29/2023 L&D used 05/2021 Battery Size: 13 Color: Sand Beige Parts Counter Specialist: 2 UP Type of Mold: Phonak Clear Canal C-Shell #[id number] warranty Type of Wax Guard: CeruStop Dispensed By: [facility] Date of Fittin12/02/2020 Follow-Up Summary: Fit the repaired left c-shell and reprogrammed aid with new acoustics. Patient reports good sound and fit of c-shell. Kyler is accompanied by his mother who questioned about the lost right aid. We have not received an order from the PCP for a hearing test. Told mother to contact PCP for order. When received will schedule hearing test appointment. Following test will obtain medical clearance for hearing aid and electronically send prior authorization request to [facility] for replacement right aid. Diagnosis Code(s):Primary Diagnosis: H90.3 Bilateral Sensorineural Hearing Loss Services Performed:[place] (Quantity): 1 Signature:Provider: Stanislaw Dumont, [facility]
== END 2022-09-18 10:02 | disposition home or self-care (01) ==
LOC: HO.HAP 10:01
PROVIDERS: Visit Provider Internal Medicine
DX: Z46.1 Encounter for fitting and adjustment of hearing aid (principal); H90.3 Sensorineural hearing loss, bilateral
CPT/HCPCS: V5264

== ENCOUNTER 2023-01-10 10:17 | Outpatient (REF) | payer MEDICARE, MEDICAID, SELFPAY | END 2023-01-10 10:18 | disposition home or self-care (01) | LOC: HO.HAP 10:17 | PROVIDERS: Visit Provider Internal Medicine | DX: Z13.89 Encounter for screening for other disorder (principal) ==

== ENCOUNTER 2023-01-19 10:38 | Outpatient (REF) | payer MEDICARE, MEDICAID, SELFPAY | END 2023-01-19 10:39 | disposition home or self-care (01) | LOC: HO.HAP 10:38 | PROVIDERS: Visit Provider Internal Medicine | DX: Z46.1 Encounter for fitting and adjustment of hearing aid (principal); H90.3 Sensorineural hearing loss, bilateral | CPT/HCPCS: 92592; V5264 ==

== ENCOUNTER 2023-01-19 10:45 | Outpatient (REF) | payer MEDICARE, MEDICAID, SELFPAY | END 2023-01-19 10:46 | disposition home or self-care (01) | LOC: HO.HAP 10:45 | PROVIDERS: Visit Provider Internal Medicine | DX: Z46.1 Encounter for fitting and adjustment of hearing aid (principal); H90.3 Sensorineural hearing loss, bilateral | CPT/HCPCS: 92592 ==

== ENCOUNTER 2023-01-24 12:13 | Outpatient (REF) | payer MEDICARE, MEDICAID, SELFPAY | END 2023-01-24 12:14 | disposition home or self-care (01) | LOC: HO.HAP 12:13 | PROVIDERS: Visit Provider Internal Medicine | DX: Z13.89 Encounter for screening for other disorder (principal) ==